=== PATIENT | female | born 1935 | race Caucasian/White ===

== ENCOUNTER 2024-04-13 07:18 | Outpatient (RCR) | payer MEDICARE, SELFPAY ==
[2024-03-02 10:47] VITALS: BMI 38.0
== END 2024-05-31 23:59 | disposition home or self-care (01) ==
LOC: ANHWOC 07:18
PROVIDERS: PCP Internal Medicine; Visit Provider Internal Medicine
DX: S81.801D Unspecified open wound, right lower leg, subsequent encounter (principal)
CPT/HCPCS: 99213; 99214; G0463

== ENCOUNTER 2024-09-07 10:28 | Outpatient (CLI) | payer MEDICARE, SELFPAY ==
--- NOTE | ~2024-09-07 | CT_ITS ---
EXAMINATION: CTA chest PE protocol DATE: 09/07/2024 11:03 INDICATION: Dyspnea. TECHNIQUE: Computed tomography angiography (CTA) of the chest was performed with 100 mL Omnipaque-350 intravenous contrast timed to evaluate the pulmonary arteries. Coronal maximum intensity projection 3D-reconstructions were created by the technologist. Automated exposure control and iterative reconst ruction technique were employed. The dose-length product was 922.85 mGy-cm. COMPARISON: Chest 2 views 06/05/2004 FINDINGS: There is a moderate-sized right pleural effusion. There is mild atelectasis bilaterally. Th e heart size is normal. No pericardial effusion. There are acute pulmonary emboli in the right middle lobe, right lower lobe, and left upper lobe. There is cortical thinning in the kidneys, left worse t sauceda right. There is moderate thoracic spondylosis. IMPRESSION: 1. Acute bilateral pulmonary emboli. No right heart strain. I called this result to [place] Cortes. 2. Moderate-sized right pleural effusion. Reviewed, dictated and finalized at location A. [facility] TELEMETRY IMPRESSION: 1. Acute bilateral pulmonary emboli. No right heart strain. I called this resul t to [place] Cortes. 2. Moderate-sized right pleural effusion.
--- OUTSIDE RECORDS SUMMARY | 2024-09-07 10:53 | XMS_ITS | Continuity of Care Document ---
Author Organization [facility] Address [address] [place] [address] [place] [address] Phone Care Team Providers Care Box Press Operator Name Role Phone Thierno Dowd Unavailable Unavailable [...] Diagnoses Date Provider Providers Copied on Encounter [facility], [address] [place] [address] [address], [place], [place], [address], [place] tel:[phone] [facility] [place] No Information 8 [address] [facility] , [address], [place], [address], [place]. tel:[phone] [facility], [address] [place] [address] [address], [place], [place], [address], [place] tel:[phone] [facility] [place] No Information 8 [address] [facility] [address], [address], [place], [address], [place]. tel:[phone] [facility], [address] [place] [address] [address], [place], [place], [address], [place] tel:[phone] [facility] No Information 8 Doisy Edward. [address] [facility] , [address], [place], [facility], [place]. tel:[phone] [facility], [address], [place], [place], [address], [place] tel:[phone] [facility] No Information 200 8 Doisy Edward. [address] [facility] , [address], [place], [facility], [place]. tel:[phone] Referring Provider: Antonio Plummer, [address] [place] [address], [place], [facility]. tel:[phone] [facility], [address], [place], [place], [address], [place] tel:[phone] [facility] No Information 200 8 [address]. [address] [facility] , [address], [place], [facility], [place]. tel:[phone] Referring Provider: Antonio Plummer, [address] [place] [address], [place], [facility]. tel:[phone] [facility], [address], [place], [place], [address], [place] tel:[phone] [facility] No Information 200 8 [address]. [address] [facility] , [address], [place], [facility], [place]. tel:[phone] Referring Provider: Antonio Plummer, [address] [place] [address], [place], [facility]. tel:[phone] Office/outpat ient Visit, [facility], [address], [place], [place], [address], [place] tel:[phone] [facility] [place] No Information Apr-2 2200 8 Neoge[address] Collinpaul. [address] [facility] [place] , [address], [place], [address], . tel:[phone] Referring Provider: Antonio Plummer, [address] [facility], [place], [facility]. tel:[phone] Family History Family Member Type Diagnosis Age At Onset No Information Payers Payer name Insurance type Covered constitution party ID Authoriza tion(s) No Information Social History [...]
--- OUTSIDE RECORDS SUMMARY | 2024-09-07 10:53 | XMS_ITS | Referral Summary ---
Author Organization [address] Address [address] [place] [address] Care Team Providers Care Application Developer Name Role Phone Chris Motta MD Primary Care Provider Allergies Active Allergy Reactions Criticality Noted Date Comments Levofloxacin Medications ALPRAZolam (XANAX) 0.5 mg tablet Take 1 tablet (0.5 mg total) by mouth 3 (three) times a day 02/07/2024 Active amLODIPine (NORVASC) 5 mg tablet Take 1 tablet (5 mg total) by mouth daily 02/07/2024 Active aspirin 81 mg enteric coated tablet Take 1 tablet every day by oral route. 05/28/2013 Active citalopram (CeleXA) 10 mg tablet Take 1 tablet every day by oral route. Active desmopressin (DDAVP) 0.1 mg tablet Take 1 tablet every day by oral route. Active diclofenac DR (VOLTAREN) 75 mg EC tablet Active ergocalciferol (VITAMIN D) 50,000 unit capsule Take 1 capsule every week by oral route. Active escitalopram (LEXAPRO) 5 mg tablet Take 1 tablet (5 mg total) by mouth daily Active indapamide (LOZOL) 2.5 mg tablet Take 1 tablet (2.5 mg total) by mouth daily Active levothyroxine (SYNTHROID) 125 mcg tablet Take 1 tablet (125 mcg total) by mouth Active losartan (COZAAR) 100 mg tablet Take 1 tablet (100 mg total) by mouth daily 12/17/2023 Active losartan (COZAAR) 25 mg tablet Active oxyBUTYnin XL (DITROPAN-XL) 10 mg 24 hr tablet Take 1 tablet (10 mg total) by mouth daily 02/18/2024 Active potassium chloride ER 20 mEq CR tablet Take 1 tablet (20 mEq total) by mouth daily Active simvastatin (ZOCOR) 20 mg tablet Take 1 tablet (20 mg total) by mouth daily 02/18/2024 Active Active Problems Problem Noted Date Diagnosed Date Nocturia 11/07/2010 Overactive bladder 11/07/2010 Urge incontinence of urine 11/07/2010 Hernia of anterior abdominal wall 11/07/2010 Diverticulitis of colon 03/22/2009 Social History Tobacco Use Types Packs/Day Years Used Date Smoking Tobacco: Never Comments Unknown Sex and Gender Information Value Date Recorded Sex Assigned at Not on file 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 Gender Identity Not on file Sexual Orientation Not on file Last Filed Vital Signs Vital Sign Reading Time Taken Comments Blood Pressure 148/68 02/19/2024 3:42 PM CDT Pulse 78 02/19/2024 3:42 PM CDT Temperature 37 C (98.6 F) 02/19/2024 3:42 PM CDT Respiratory Rate - - Oxygen Saturation 98% 02/19/2024 3:42 PM CDT Inhaled Oxygen Concentration - - Weight 113.4 kg (250 lb) 02/19/2024 3:42 PM CDT Height 172.7 cm (5' 8 ) 02/19/2024 3:42 PM CDT Body Mass Index 38.01 02/19/2024 3:42 PM CDT Plan of Treatment Not on file Insurance MEDICARE [facility] Address: [facility] [address] [place] [address] [facility] MEDICARE Care Teams Application Developer Relationship Specialty Start Date End Date Chris Motta MD [facility] [place] [place] [address] PCP - General Internal Medicine 02/19/24
--- OUTSIDE RECORDS SUMMARY | 2024-09-07 10:53 | XMS_ITS | CONTINUITY OF CARE DOCUMENT ---
Author Name shun hoffmann Address Unknown Organization [facility] Address [address] [facility] [address] [place] [address] Phone [phone] Care Team Providers Care Permit Technician Name Role Phone Robert COLORADO, Mellissa Unavailable RAPHAEL NATARAJAN MD Unavailable RORO AVENDANO MD Unavailable PROBLEMS Condition Status Date Provider Notes Family History of CVA or Stroke: active Morris Jones MD Hypothyroidism active Mellissa Jones MD HTN essential active Mellissa Jones MD Hyperlipidemia active Mellissa Jones MD Vertigo active Mellissa Jones MD DYSPNEA ON EXERTION active Mellissa Jones MD ENCOUNTERS Date Type Provider Location Encounter Diag nosis - In-person encounter Office Visit Mellissa Jones MD [facility] Family History of CVA or Stroke:HypothyroidismHTN essentialHyperlipidemiaVertigoDYSPNEA ON EXERTION VITAL SIGNS Date Observation Value Provider Body Mass Index (Ratio) 40.59 kg/m2 Pranay Jones MD blood pressure, diastolic 65 mm[Hg] To nsha Anthony blood pressure, systolic 140 mm[Hg] Morris Anthony oxygen saturation, oximetry 96 % Tonsha Anthony respiratory rate E&M 16 /min Tonsha Anthony pulse rate 81 /min Tonsha Anthony blood pressure, resting Yes Tons martino Anthony weight E&M 267 [lb_av] Tonsha Anthony height E&M 68 [in_i] Tonsha Anthony ALLERGIES Allergy Name Onset Date Reaction Criticality Status LEVAQUIN Low Criticality active HISTORY OF MEDICATION USE Medication Status Instructions Dates Provider Indications Com ments LOSARTAN POTASSIUM 100 MG ORAL TABLET active TAKE 1 TABLET BY MOUTH EVERY DAY 5 Doretha Anthony #90, 90 days supply, Prescribed by RORO AVENDANO, Filled 01/29/2020 AMLODIPINE BESYLATE 5 MG ORAL TABLET active TAKE 1 TABLET BY MOUTH EVERY DAY 1 Doretha Anthony #90, 90 days supply, Prescribed by RORO AVENDANO, Filled 01/29/2020 SIMVASTATIN 20 MG ORAL TABLET active TAKE 1 TABLET BY MOUTH EVERY DAY 5 Doretha Anthony #90, 90 days supply, Prescribed by RORO AVENDANO, Filled 03/10/2020 POTASSIUM CHLORIDE ER 20 MEQ ORAL TABLET EXTENDED RELEASE active TAKE 1 TABLET BY MOUTH EVERY DAY 1 Doretha Anthony #90, 90 days supply, Prescribed by RORO AVENDANO, Filled 03/15/2020 MECLIZINE HCL 25 MG ORAL TABLET active TAKE 1 TABLET BY MOUTH THREE TIMES A DAY 5 Doretha Anthony #90, 30 days supply, Prescribed by RORO AVENDANO, Filled 03/15/2020 LEVOTHYROXINE SODIUM 125 MCG ORAL TABLET active TAKE 1 TABLET BY MOUTH EVERY MORNING ON AN EMPTY STOMACH 1 Doretha Anthony #90, 90 days supply, Prescribed by RORO AVENDANO, Filled 03/15/2020 INDAPAMIDE 2.5 MG ORAL TABLET active TAKE 1 TABLET BY MOUTH EVERY DAY 1 Doretha Anthony #90, 90 days supply, Prescribed by RORO AVENDANO, Filled 03/15/2020 ESCITALOPRAM OXALATE 5 MG ORAL TABLET active TAKE 1 TABLET BY MOUTH EVERY DAY 8 Doretha Anthony #30, 30 days supply, Prescribed by RORO AVENDANO, Filled 03/15/2020 ALPRAZOLAM 0.5 MG ORAL TABLET active TAKE ONE TABLET DAILY AT BEDTIME OR DIRECTED *LF 12/19 MED SHOPPE* 5 Doretha Anthony #90, 90 days supply, Prescribed by RORO AVENDANO, Filled 03/15/2020 SOCIAL HISTORY Date Observation Value Provider social history E&M S moking History: P atient has never smoked. Mellissa Jones MD social history reviewed E&M reviewed - no changes required Mellissa Jones MD smoking status Never smoker Doretha Anthony FAMILY HISTORY Family Member Condition Father Family History of Hy pertension: Father Family History of CV A or Stroke: Mother Family History of Hy pertension: Mother Family History of CV A or Stroke: INSURANCE PROVIDERS Payer name Policy type / Coverage type [place] red democrat ID AARP [employer] insurance [employer] [id number] [place] MED[place] Medicare [id number] ADVANCE DIRECTIVES Name Date DISCUSSED - NO DECISION MADE TREATMENT PLAN Date Name Performer Cardiology Mellissa Jones MD Cardiology Mellissa Jones MD Cardiology Mellissa Jones MD Cardiology Mellissa Jones MD Date Name Stress Regadenoson Complete Echo HISTORY OF PROCEDURES Procedure Date Procedure Name Provider Procedure Notes S tatus Regadenoson, 4 units Mellissa Jones MD completed Cardiolite, 2 units Mellissa Jones MD completed SPECT Images Mellissa Jones MD complet ed Stress EKG Mellissa Jones MD completed EKG Mellissa Jones MD completed
--- OUTSIDE RECORDS SUMMARY | 2024-09-07 10:53 | XMS_ITS | Clinical Summary ---
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 Gender Identity Not on file Sexual Orientation Not on file Obstetrics History Last Filed Vital Signs Vital Sign Reading [...] 02/19/2024 3:42 PM CDT Plan of Treatment Health Maintenance Due Date Last Done Comments Depression Screening 1936 Fall Risk Assessment 1936 DTaP/Tdap/Td Vaccine (1 - Tdap) 10/09/1947 Hepatitis B Screening 1954 Zoster Vaccine (1 of 2) 1986 Well Visit 65+ 2001 Pneumococcal vaccine 65+ (2 of 2 - PPSV23 or PCV20) 07/23/2015 07/23/2014 Covid-19 Vaccine (2023-2 5 season) 2024 05/12/2023, 04/08/2022, 06/16/2021, Additional history exists Influenza Vaccine (#1) 2024 , 04/08/2022, 04/01/2022, Additional history exists Insurance MEDICARE [facility] MEDICARE Care Teams Hot Repairman Relationship Specialty Start Date End Date Chris Motta MD [facility] [place] [address] PCP - General Internal Medicine 02/19/24
[2024-09-07 10:56] LABS: Estimated Glomerular Filt Rate 39
== END 2024-09-07 10:29 | disposition home or self-care (01) ==
PROVIDERS: PCP Internal Medicine; Visit Provider Internal Medicine
DX: R06.00 Dyspnea, unspecified (principal)
CPT/HCPCS: 71275; Q9967

== ENCOUNTER 2024-09-07 11:33 | Emergency (ER) | payer MEDICARE, SELFPAY ==
[2024-09-07] VITALS (8 sets, daily range): BP systolic 153–171; BP diastolic 54–64; PULSE 66–72; RESP 16–24; TEMP 36.6–36.9; O2SAT 95–98
--- OUTSIDE RECORDS SUMMARY | 2024-09-07 11:50 | XMS_ITS | Continuity of Care Document ---
Author Organization [facility] Address [address] [place] [address] [place] [address] Phone Care Team Providers Care Building Maintenance Mechanic Name Role Phone Thierno Dowd Unavailable Unavailable [...] Diagnoses Date Provider Providers Copied on Encounter [facility], [address] [place] [address] [address], [place], [place], [address], [place] tel:[phone] [facility] [place] No Information 8 [address] [facility] , [address], [place], [address], [place]. tel:[phone] [facility], [address] [place] [address] [address], [place], [place], [address], [place] tel:[phone] [facility] [place] No Information 8 [address] [facility] [address]if [address], [address], [place], [address], [place]. tel:[phone] [facility], [address] [place] [address] [address], [place], [place], [address], [place] tel:[phone] [facility] No Information 8 Doisy Edward. [address] [facility] , [address], [place], [facility], [place]. tel:[phone] [facility], [address], [place], [place], [address], [place] tel:[phone] SEC [facility] No Information 200 8 Doisy Edward. [address] [facility] , [address], [place], [facility], [place]. tel:[phone] Referring Provider: Antonio Plummer, [address] [place] [address], [place], [facility]. tel:[phone] [facility], [address], [place], [place], [address], [place] tel:[phone] SEC [facility] No Information 200 8 Doisy Edward. [address] [facility] , [address], [place], [facility], [place]. tel:[phone] Referring Provider: Antonio Plummer, [address] [place] [address], [place], [facility]. tel:[phone] [facility], [address], [place], [place], [address], [place] tel:[phone] [facility] No Information 200 8 Doisy Edward. [address] [facility] , [address], [place], [facility], [place]. tel:[phone] Referring Provider: Antonio Plummer, [address] [place] [address], [place], [facility]. tel:[phone] Office/outpat ient Visit, [facility], [address], [place], [place], [address], [place] tel:[phone] [facility] [place] No Information Apr-2 2200 8 Neogeorgina Collinpaul. [address] [facility] [place] , [address], [place], [address], . tel:[phone] Referring Provider: Antonio Plummer, [address], [place], [facility]. tel:[phone] Family History Family Member Type Diagnosis Age [...]
--- OUTSIDE RECORDS SUMMARY | 2024-09-07 11:50 | XMS_ITS | Clinical Summary ---
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 MEDICARE Care Teams Networking Technology Instructor Relationship Specialty Start Date End Date Chris Motta MD [facility] [place] [address] PCP - General Internal Medicine 02/19/24
--- OUTSIDE RECORDS SUMMARY | 2024-09-07 11:51 | XMS_ITS | CONTINUITY OF CARE DOCUMENT ---
Author Name shun hoffmann Address Unknown Organization [facility] [address] Address [address] [facility] [address] [place] [address] Phone [phone] Care Team Providers Care Rubber Production Machine Operator Name Role Phone Robert COLORADO, Mellissa Unavailable [phone] RAPHAEL NATARAJAN MD Unavailable RORO AVENDANO MD Unavailable PROBLEMS Condition Status Date Provider Notes DYSPNEA ON EXERTION active Mellissa Jones MD Vertigo active Mellissa Jones MD Hyperlipidemia active Mellissa Jones MD HTN essential active Mellissa Jones MD Hypothyroidism active Mellissa Jones MD Family History of CVA or Stroke: active Morris Jones MD ENCOUNTERS Date Type Provider Location Encounter Diag nosis - In-person encounter Office Visit Mellissa Jones MD [place] [facility] Family History of CVA or Stroke:HypothyroidismHTN essentialHyperlipidemiaVertigoDYSPNEA ON EXERTION VITAL SIGNS Date Observation Value Provider Body Mass Index (Ratio) 40.59 kg/m2 Pranay Jones MD blood pressure, diastolic 65 mm[Hg] To nsha Raj blood pressure, systolic 140 mm[Hg] Morris Anthony [...] Payer name Policy type / Coverage type [place] red libertarian ID AARP Contactually insurance [place] [id number] [place] MED[place] Medicare [id number] ADVANCE DIRECTIVES Name Date DISCUSSED - NO [...]
--- OUTSIDE RECORDS SUMMARY | 2024-09-07 11:51 | XMS_ITS | Referral Summary ---
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
--- NOTE | 2024-09-07 13:13 | ECG_ITS ---
Test Date: 2024-09-07 12:56:52 Measurements Intervals [place] Rate: 66 P: -33 CT: 180 QRS: 64 QRSD: 92 T: 85 QT: 419 QTc: 440 Interpretive Statements SINUS RHYTHM CONSIDER ANTERIOR INFARCT, AGE INDETERMINATE BORDERLINE T WAVE ABNORMALITY- HIGH LATERAL LEADS BASELINE ARTIFACT- I, II, III, AVR, AVL, V4-V6 ABNORMAL ECG No previous ECG available for comparison Electronically Signed On 09-07-2024 14:59:23 BANDER OPERATOR by Paulie Brush D.O.
--- OUTSIDE RECORDS SUMMARY | 2024-09-07 14:02 | XMS_ITS | CONTINUITY OF CARE DOCUMENT ---
Author Name shun hoffmann Address Unknown Organization [facility] Address [address] [facility] [address] [place] [address] Phone [phone] Care Team Providers Care Vein Pumper Name Role Phone Robert [place]OR[place]O, Mellissa Unavailable RAPHAEL NATARAJAN MD Unavailable [phone] RORO AVENDANO MD Unavailable [phone] PROBLEMS Condition Status Date Provider Notes Family History of CVA or Stroke: active Morris Jones MD Hypothyroidism active Mellissa Jones MD HTN essential active Mellissa Jones MD Hyperlipidemia active Mellissa Jones MD Vertigo active Mellissa Jones MD DYSPNEA ON EXERTION active Mellissa Jones MD ENCOUNTERS Date Type Provider Location Encounter Diag nosis - In-person encounter Office Visit Mellissa Jones MD [place] [facility] Family History of CVA or Stroke:HypothyroidismHTN [...] Tonsha Anthony height E&M 68 [in_i] Tonsha Anhtony ALLERGIES Allergy Name Onset Date Reaction Criticality [...] Payer name Policy type / Coverage type [place] red libertarian ID AARP [place] insurance [employer] [id number] [place] MED[place] Medicare [id number] ADVANCE DIRECTIVES Name Date DISCUSSED - NO [...]
--- OUTSIDE RECORDS SUMMARY | 2024-09-07 14:02 | XMS_ITS | Referral Summary ---
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
--- OUTSIDE RECORDS SUMMARY | 2024-09-07 14:02 | XMS_ITS | Continuity of Care Document ---
Author Organization [facility] Address [address] [place] [address] [place] [address] Phone Care Team Providers Care Outlet Manager Name Role Phone Thierno Dowd Unavailable Unavailable [...] Diagnoses Date Provider Providers Copied on Encounter [facility], [address] [place] [address] [address], [place], [place], [id number], [place] tel:[phone] [facility] [place] No Information [address] [facility] , [address], [place], [address], [place]. tel:[phone] [facility], [address] [place] [address] [address], [place], [place], [id number], [place] tel:[phone] [facility] [place] No Information [address] [facility] [address], [address], [place], [address], [place]. tel:[phone] [facility], [address] [place] [address] [address], [place], [place], [id number], [place] tel:[phone] [facility] No Information [address] [facility] , [address], [place], [place], [facility], [place]. tel:[phone] [facility], [address], [place], [place], [address], [place] tel:[phone] SEC [facility] No Information [address] [facility] , [address], [place], [place], [facility], [place]. tel:[phone] Referring Provider: Antonio Plummer, [address] [place] [address], [place], [facility]. tel:[phone] [facility], [address], [place], [place], [id number], [place] tel:[phone] SEC [facility] No Information [address] [facility] , [address], [place], [place], [facility], [place]. tel:[phone] Referring Provider: Antonio Plummer, [address] [place] [address], [place], [facility]. tel:[phone] [facility], [address], [place], [place], [id number], [place] tel:[phone] [facility] No Information [address] [facility] , [address], [place], [place], [facility], [place]. tel:[phone] Referring Provider: Antonio Plummer, [address] [place] [address], [place], [facility]. tel:[phone] Office/outpat ient Visit, [facility], [address], [place], [place], [id number], [place] tel:[phone] [facility] [place] No Information Apr-2 2200 [address] [facility] [place] , [address], [place], [address], . tel:[phone] Referring Provider: Antonio Plummer, [address] [facility], [place], [place], [facility]. tel:[phone] Family History Family Member Type Diagnosis Age [...]
--- OUTSIDE RECORDS SUMMARY | 2024-09-07 14:02 | XMS_ITS | Clinical Summary ---
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
--- NOTE | 2024-09-07 14:13 | ED.GENADULT ---
HPI - General Adult General Chief complaint: Shortness of Breath/Dyspnea Stated complaint: SOB Time Seen by Provider: 09/07/24 13:35 History of Present Illness HPI narrative: Patient is a 88-year-old female who presents emergency department with chief complaint of pulmonary embolism. The patient reports that she had a CT scan as an outpatient today that showed a pulmonary embolism. The patient states that she has been feeling short of breath and reports that she has had some discomfort in her chest as well Related Data Home Medications ?Medication ?Instructions ?Recorded ?Confirmed ?Last Taken ?Type alprazolam 0.5 mg tablet 0.5 mg PO TID 03/02/24 03/02/24 Unknown History amlodipine 5 mg tablet 5 mg PO DAILY 03/02/24 03/02/24 Unknown History aspirin 81 mg capsule 81 mg PO DAILY 03/02/24 03/02/24 Unknown History escitalopram oxalate 5 mg tablet 5 mg PO DAILY 03/02/24 03/02/24 Unknown History indapamide 2.5 mg tablet 2.5 mg PO DAILY 03/02/24 03/02/24 Unknown History levothyroxine 125 mcg tablet 125 mcg PO DAILY 03/02/24 03/02/24 Unknown History losartan 100 mg tablet 100 mg PO DAILY 03/02/24 03/02/24 Unknown History meclizine 25 mg tablet 25 mg PO TID PRN Vertigo 03/02/24 03/02/24 Unknown History oxybutynin chloride 10 mg 10 mg PO DAILY 03/02/24 03/02/24 Unknown History tablet,extended release 24 hr potassium chloride 20 mEq 20 meq PO DAILY 03/02/24 03/02/24 Unknown History tablet,extended release simvastatin 20 mg tablet 20 mg PO DAILY 03/02/24 03/02/24 Unknown History Allergies Allergy/AdvReac Type Severity Reaction Status Date / Time levofloxacin (From Levaquin) Allergy Intermediate Rash Verified 09/07/24 11:43 Review of Systems Review of Systems: A 10 system review of systems was completed on the patient and is negative except for what is stated in the HPI. Nursing and ancillary documentation was reviewed. Exam Narrative: GENERAL: Well-appearing, well-nourished, and in no acute distress. HEAD: Normocephalic, atraumatic. EYES: PERRLA and EOMI. ENT: Nares clear, no rhinorrhea or epistaxis. Mucous membranes moist. NECK: Supple. CHEST: Clear to auscultation. No respiratory distress. HEART: Regular rate and rhythm. No murmur heard. Normal peripheral pulses. ABDOMEN: Soft, nontender, nondistended, normal active bowel sounds. EXTREMITIES: Normal range of motion. No edema. SKIN: Warm, dry, no rash. NEURO: No focal deficits. Alert and oriented x3. PSYCH: Normal mood and affect. Course Vital Signs Vital signs: Vital Signs Temperature 36.6 C 09/07/24 11:34 Pulse Rate 71 09/07/24 11:34 Respiratory Rate 18 09/07/24 11:34 Blood Pressure 153/54 H 09/07/24 11:34 Pulse Oximetry 95 09/07/24 11:34 Oxygen Delivery Room Air 09/07/24 11:34 Temperature 36.6 C 09/07/24 11:34 Pulse Rate 68 09/07/24 14:58 Respiratory Rate 20 09/07/24 14:58 Blood Pressure 169/64 H 09/07/24 14:31 Pulse Oximetry 96 09/07/24 14:58 Oxygen Delivery Room Air 09/07/24 13:01 Medical Decision Making Vital Signs Vital Signs: Vital Signs Temperature 36.6 C 09/07/24 11:34 Pulse Rate 71 09/07/24 11:34 Respiratory Rate 18 09/07/24 11:34 Blood Pressure 153/54 H 09/07/24 11:34 Pulse Oximetry 95 09/07/24 11:34 Oxygen Delivery Room Air 09/07/24 11:34 Temperature 36.6 C 09/07/24 11:34 Pulse Rate 68 09/07/24 14:58 Respiratory Rate 20 09/07/24 14:58 Blood Pressure 169/64 H 09/07/24 14:31 Pulse Oximetry 96 09/07/24 14:58 Oxygen Delivery Room Air 09/07/24 13:01 Lab Data 09/07/24 14:03 09/07/24 15:08 Labs: Lab Results 09/07/24 09/07/24 Range/Units 14:03 15:08 WBC 9.7 (4.5-10.0) K/mm3 RBC 4.66 (4.2-5.4) M/mm3 Hgb 13.9 (12.0-15.0) g/dL Hct 42.2 (37.0-47.0) % MCV 90.6 (80-100) fl MCH 29.8 (26-34) pg MCHC 32.9 (32-36) g/dl RDW 12.9 (11.5-14.5) % Plt Count 289 (150-375) k/mm3 MPV 10.7 H (7.4-10.4) fl Immature Gran % (Auto) 0.2 (0-0.5) % Neut % (Auto) 47.3 (45.5-73.1) % Lymph % (Auto) 29.5 (18.3-44.2) % Phillips % (Auto) 8.3 (2.6-8.5) % Eos % (Auto) 14.0 H (0-4.4) % Baso % (Auto) 0.7 (0.2-1.2) % Lymph # (Auto) 2.85 (0.9-3.2) K/mm3 Phillips # (Auto) 0.8 H (0.1-0.6) K/mm3 Eos # (Auto) 1.4 H (0-0.3) K/mm3 Baso # (Auto) 0.1 (0.0-0.1) K/mm3 Abs Immat Gran (auto) 0.02 (0.00-0.031) K/mm3 Absolute Neuts (auto) 4.6 (1.3-6.7) K/mm3 Absolute Nucleated RBC 0.000 (0.0-0.012) K/mm3 Nucleated RBC % 0.0 (0.0-0.2) % PT 13.6 (11.1-14.7) Seconds INR 1.0 APTT 32.0 (22.3-36.8) Seconds Sodium 137 (137-145) mmol/L Potassium 4.4 (3.4-5.0) mmol/L Chloride 105 (98-107) mmol/L Carbon Dioxide 23 (22-30) mmol/L Anion Gap 9 (4-12) mmol/L BUN 21 H (7-17) mg/dL Creatinine 0.95 (0.7-1.0) mg/dL Estim Creat Clear Calc 49 ml/min Estimated GFR 56 L (59 - ) Glucose 84 (65-110) mg/dL Calcium 8.5 (8.4-10.2) mg/dL Magnesium 1.8 (1.6-2.3) mg/dL Total Bilirubin 0.5 (0.2-1.3) mg/dL AST 19 (14-36) U/L ALT 10 (6-35) U/L Alkaline Phosphatase 103 (38-126) U/L Troponin I < 0.012 (0.000-0.034) ng/mL NT-Pro-B Natriuret Pep 279 H (19.9-100) pg/mL Total Protein 7.0 (6.3-8.2) g/dL Albumin 3.5 (3.5-5.1) g/dL Discharge Plan Discharge Clinical Impression: Pulmonary embolism Qualifiers: Pulmonary embolism type: unspecified Chronicity: acute Acute cor pulmonale presence: without acute cor pulmonale Qualified Code(s): I26.99 - Other pulmonary embolism without acute cor pulmonale Patient Disposition: Home, Self-Care Condition: Stable Instructions: Antibiotic Form, Pulmonary Embolism (ED) Patient Language: Guamanian Prescriptions: New Xarelto DVT-PE Treat 30d Start 15 mg (42)- 20 mg (9) tablets,dose pack See Rx Instructions .ROUTE .COMPLEX Qty: 51 0RF Rx Instructions: take one-15 mg tablet twice daily for 21 days, then one-20 mg tablet once daily; must take with meal/food No Action oxybutynin chloride 10 mg Tablet Extended Release 24hr 10 mg PO DAILY indapamide 2.5 mg Tablet 2.5 mg PO DAILY amlodipine 5 mg Tablet 5 mg PO DAILY alprazolam 0.5 mg Tablet 0.5 mg PO TID meclizine 25 mg Tablet 25 mg PO TID PRN (Reason: Vertigo) simvastatin 20 mg Tablet 20 mg PO DAILY levothyroxine 125 mcg Tablet 125 mcg PO DAILY losartan 100 mg Tablet 100 mg PO DAILY escitalopram oxalate 5 mg Tablet 5 mg PO DAILY potassium chloride 20 mEq Tablet Extended Release 20 meq PO DAILY aspirin 81 mg Capsule 81 mg PO DAILY Follow-up/Referrals: Kalia,Chris Aguiar MD [Primary Care Provider] - Time of Disposition: 15:59
[2024-09-07 14:14] LABS: Basophils Absolute Auto 0.1 K/mm3 (0.0-0.1); Basophils Percent Auto 0.7 % (0.2-1.2); Eosinophils Absolute Auto 1.4 K/mm3 (0-0.3); Hematocrit 42.2 % (37.0-47.0); Hemoglobin 13.9 g/dL (12.0-15.0); Immature Granulocyte Absolute 0.02 K/mm3 (0.00-0.031); Immature Granulocyte Percent A 0.2 % (0-0.5); Lymphocytes Absolute Auto 2.85 K/mm3 (0.9-3.2); Lymphocytes Percent Auto 29.5 % (18.3-44.2); Mean Corpuscular HGB Conc 32.9 g/dl (32-36); Mean Corpuscular Hemoglobin 29.8 pg (26-34); Mean Corpuscular Volume 90.6 fl (80-100); Mean Platelet Volume 10.7 fl (7.4-10.4); Monocytes Absolute Auto 0.8 K/mm3 (0.1-0.6); Monocytes Percent Auto 8.3 % (2.6-8.5); Neutrophils Absolute Auto 4.6 K/mm3 (1.3-6.7); Neutrophils Percent Auto 47.3 % (45.5-73.1); Platelet Count Result 289 k/mm3 (150-375); Red Blood Count 4.66 M/mm3 (4.2-5.4); Red Cell Distribution Width 12.9 % (11.5-14.5); White Blood Count 9.7 K/mm3 (4.5-10.0)
[2024-09-07 14:28] LABS: Prothrombin Time 13.6 Seconds (11.1-14.7)
[2024-09-07 15:25] LABS: Alanine Aminotransferase 10 U/L (6-35); Albumin Level 3.5 g/dL (3.5-5.1); Alkaline Phosphatase 103 U/L (38-126); Anion Gap 9 mmol/L (4-12); Aspartate Amino Transferase 19 U/L (14-36); Bilirubin,Total 0.5 mg/dL (0.2-1.3); Blood Urea Nitrogen 21 mg/dL (7-17); Calcium 8.5 mg/dL (8.4-10.2); Carbon Dioxide 23 mmol/L (22-30); Chloride 105 mmol/L (98-107); Estimated CRCL calculation 49 ml/min; Estimated Glomerular Filt Rate 56; Glucose 84 mg/dL (65-110); Magnesium 1.8 mg/dL (1.6-2.3); Potassium 4.4 mmol/L (3.4-5.0); Sodium 137 mmol/L (137-145)
[2024-09-07 15:36] LABS: NT Pro B Type Natriuretic Pept 279 pg/mL (19.9-100); Troponin I < 0.012 ng/mL (0.000-0.034)
[2024-09-07] MEDS: ENOXAPARIN 100 MG/ML SYRINGE SUB-Q (16:17)
[2024-09-07] MEDS: ENOXAPARIN 80 MG/0.8 ML SYRINGE 70 MG SUB-Q (16:17)
== END 2024-09-07 16:27 | disposition home or self-care (01) ==
PROVIDERS: Emergency Provider Emergency Medicine; PCP Internal Medicine
DX: I26.99 Other pulmonary embolism without acute cor pulmonale (principal); R06.02 Shortness of breath; Z79.82 Long term (current) use of aspirin; Z79.899 Other long term (current) drug therapy; R94.31 Abnormal electrocardiogram [ECG] [EKG]
CPT/HCPCS: 36415; 71275; 80053; 83735; 83880; 84484; 85025; 85610; 85730; 93005; 96372; 99284; J1650; Q9967

== ENCOUNTER 2025-02-19 14:33 | Inpatient (IN) | payer MEDICARE, SELFPAY ==
[2025-02-19] VITALS (24 sets, daily range): BP systolic 156–187; BP diastolic 46–127; PULSE 63–90; RESP 17–35; TEMP 36.7–36.8; O2SAT 91–100; BMI 40.1
--- NOTE | ~2025-02-19 | XR_ITS ---
EXAM/PROCEDURE: XR chest 1V portable - 02/19/2025 15:20 CDT HISTORY: 89 years old Female with SOB TECHNIQUE: AP view(s) of the chest. COMPARISON: None available. FINDINGS: LUNGS/ PLEURA: No focal consolidation. No appreciable pneumothorax or large pleural effusion. HEART/ MEDIASTINUM: Heart appears normal in size. BONES: Degenerative changes. OTHER: Visualized upper abdomen is unremarkable. Atherosclerotic calcifications are seen. IMPRESSION: No acute process. Reviewed, dictated and finalized at location A. IMPRESSION: No acute process.
--- NOTE | ~2025-02-19 | CT_ITS ---
EXAMINATION: CTA chest PE protocol DATE: 02/19/2025 19:02 INDICATION: Dyspnea TECHNIQUE: Computed tomography angiography (CTA) of the chest was performed with 100 mL Omnipaque-350 intravenous contrast timed to evaluate the pulmonary arteries. Coronal maximum intensity projection 3D-reconstructions were created by the technologist. The dose-length product (DLP) was 1018.27 mGy-cm . Automated exposure control and iterative reconstruction technique were employed. COMPARISON: 09/07/2024. FINDINGS: Lung parenchyma and airways: Bibasilar scar/atelectasis. Mild emphysematous change. Patent airways. 4 mm pulmonary nodules in the peripheral right middle lobe. Pleura: Unremarkable. Thoracic inlet, axillae and chest wall: Subcentimeter bilateral thyroid calcifications. Thoracic aorta: No significant dilation. No dissection. Atherosclerotic calcification. Mediastinum: Dilated central pulmonary arteries as can be seen with pulmonary hypertension. Heart and pericardium: Aortic valve calcification. Coronary artery calcifications: Mild. 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 Pancreatic atrophy. Status post c holecystectomy. Bilateral renal cortical thinning, with atrophy noted on the left.. Bones: No acute osseous finding. Pulmonary arteries: Study quality: Adequate. No pulmonary emboli detected. IMPRESSION: No CT evidence of acute pulmonary embolus. No acute process detected in the chest. Multiple subcentimeter pulmonary nodules, consider follow-up low-dose noncontrast CT of the chest in one year if the patient is at high risk. Reviewed, dictated and finalized at location K. IMPRESSION: No CT evidence of acute pulmonary embolus. No acute process detected in the chest. Multiple subcentimeter pulmonary nodules, consider follow-up low-dose noncontra st CT of the chest in one year if the patient is at high risk.
--- OUTSIDE RECORDS SUMMARY | 2025-02-19 14:35 | XMS_ITS | Clinical Summary ---
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 Gender Identity Not on file Sexual Orientation [...] 3:42 PM CDT Height 172.7 cm (5' 8) 02/19/2024 3:42 PM CDT Body Mass Index 38.01 02/19/2024 3:42 PM CDT Plan of Treatment Health Maintenance Due Date Last Done Comments Depression Screening 1936 Fall Risk Assessment 1936 Osteoporosis Screening-Bone Density Scan 1936 DTaP/Tdap/Td Vaccine (1 - Tdap) 10/09/1947 Hepatitis B Screening 1954 Zoster Vaccine (1 of 2) 1986 Well Visit 65+ 2001 Pneumococcal vaccine 65+ (2 of 2 - PPSV23) 07/23/2015 07/23/2014 Covid-19 Vaccine (2023-2 5 season) 2024 05/12/2023, 04/08/2022, 06/16/2021, Additional history exists Influenza Vaccine (Season Ended) 2025 05/12/2023, 04/08/2022, 04/01/2022, Additional history exists Insurance MEDICARE [facility] MEDICARE Care Teams Decision Support Analyst Relationship Specialty Start Date End Date Chris Motta MD [facility] [place] [address] PCP - General Internal Medicine 02/19/24
--- OUTSIDE RECORDS SUMMARY | 2025-02-19 14:35 | XMS_ITS | Referral Summary ---
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
--- OUTSIDE RECORDS SUMMARY | 2025-02-19 14:35 | XMS_ITS | Continuity of Care Document ---
Author Organization [facility] Address [address] [place] [address] [place] [address] Phone Care Team Providers Care Assistant Men'S Soccer Coach Name Role Phone Thierno Dodw Unavailable Unavailable Procedures Procedure Date Post-op Follow-up [...] Diagnoses Date Provider Providers Copied on Encounter [facility], [address] [place] [address] [address], [place], [place], [id number], [place] tel:[phone] [facility] [place] No Information [address] [facility] [place] , [address], [place], [address], [place]. tel:[phone] [facility], [address] [place] [address] [address], [place], [place], [address], [place] tel:[phone] [facility] [place] No Information [address] [facility] [address], [address], [place], [address], [place]. tel:[phone] [facility], [address] [place] [address] [address], [place], [place], [address], [place] tel:[phone] [facility] No Information [address] [facility] , [address], [place], [place], [facility], [place]. tel:[phone] [facility], [address], [place], [place], [id number], [place] tel:[phone] SEC [facility] No Information [address] [facility] , [address], [place], [place], [facility], [place]. tel:[phone] Referring Provider: Antonio Plummer, [address] [place] [address], [place], [facility]. tel:[phone] [facility], [address], [place], [place], [id number], [place] tel:[phone] SEC [facility] No Information [address] [facility] , [address], [place], [facility], [place]. tel:[phone] Referring Provider: Antonio Plummer, [address] [place] [address], [place], [facility]. tel:[phone] [facility], [address], [place], [place], [address], [place] tel:[phone] [facility] [address] [facility] No Information [address] [facility] , [address], [place], [facility], [place]. tel:[phone] Referring Provider: Antonio Plummer, [address] [place] [address], [place], [facility]. tel:[phone] Office/outpat ient Visit, [facility], [address], [place], [place], [id number], [place] tel:[phone] [facility] [place] No Information Apr-2 2200 [address] [facility] [place] , [address], [place], [address], . tel:[phone] Referring Provider: Antonio Plummer, [address] [facility], [place], [facility]. tel:[phone] Family History Family Member Type Diagnosis Age At Onset No Information Payers Payer name Insurance type Covered libertarian ID Authoriza tion(s) No Information Social History [...]
--- NOTE | 2025-02-19 14:45 | ECG_ITS ---
Test Date: 2025-02-19 14:50:03 Measurements Intervals [place] Rate: 76 P: 0 VA: 0 QRS: 58 QRSD: 94 T: 61 QT: 393 QTc: 443 Interpretive Statements SINUS RHYTHM LOW QRS VOLTAGE IN PRECORDIAL LEADS [QRS DEFLECTION < 1.0 mV IN CHEST LEADS] ABNORMAL RHYTHM ECG Compared to ECG 09/07/2024 12:56:52 NO SIGNIFICANT CHANGES Electronically Signed On 02-19-2025 15:27:17 CDT by Nick Lau M.D.
[2025-02-19 15:05] LABS: Hematocrit 40.5 % (37.0-47.0); Hemoglobin 13.3 g/dL (12.0-15.0); Immature Granulocyte Percent A 0.3 % (0-0.5); Lymphocytes Absolute Auto 2.65 K/mm3 (0.9-3.2); Mean Corpuscular HGB Conc 32.8 g/dl (32-36); Mean Corpuscular Hemoglobin 29.6 pg (26-34); Mean Corpuscular Volume 90.2 fl (80-100); Nucleated Red Blood Cells Absolute Auto 0.000 K/mm3 (0.0-0.012); Nucleated Red Blood Cells Perc 0.0 % (0.0-0.2); Platelet Count Result 250 k/mm3 (150-375); Red Blood Count 4.49 M/mm3 (4.2-5.4); White Blood Count 9.0 K/mm3 (4.5-10.0)
--- NOTE | 2025-02-19 15:14 | ED.GENADULT ---
HPI - General Adult General Chief complaint: Shortness of Breath/Dyspnea Stated complaint: dyspnea Time Seen by Provider: 02/19/25 15:08 History of Present Illness HPI narrative: 89-year-old female presents emergency department for evaluation for increased shortness of breath. Patient reports she has had increased wheeze and exertional shortness breath over the course of the last week. Patient states that she does not have a prior history of smoking. Patient was evaluated by her primary care physician treated with a Z-Jose Angel but has not felt improved, patient still does have 1 day left on the Z-Jose Angel. Patient does have a history of a pulmonary embolism back if September, patient had a recent negative D-dimer and negative bilateral ultrasounds and patient was told to stop her Eliquis Related Data Home Medications ?Medication ?Instructions ?Recorded ?Confirmed ?Last Taken ?Type alprazolam 0.5 mg tablet 0.5 mg PO HS 03/02/24 02/19/25 02/18/25 History amlodipine 5 mg tablet 5 mg PO DAILY 03/02/24 02/19/25 02/19/25 History aspirin 81 mg capsule 81 mg PO DAILY 03/02/24 02/19/25 02/19/25 History escitalopram oxalate 5 mg tablet 5 mg PO DAILY 03/02/24 02/19/25 02/19/25 History indapamide 2.5 mg tablet 2.5 mg PO DAILY 03/02/24 02/19/25 02/19/25 History levothyroxine 125 mcg tablet 125 mcg PO DAILY 03/02/24 02/19/25 02/19/25 History losartan 100 mg tablet 100 mg PO DAILY 03/02/24 02/19/25 02/19/25 History meclizine 25 mg tablet 25 mg PO TID PRN Vertigo 03/02/24 02/19/25 Unknown History oxybutynin chloride 10 mg 10 mg PO HS 03/02/24 02/19/25 02/18/25 History tablet,extended release 24 hr potassium chloride 20 mEq 20 meq PO DAILY 03/02/24 02/19/25 02/19/25 History tablet,extended release simvastatin 20 mg tablet 20 mg PO DAILY 03/02/24 02/19/25 02/18/25 History Allergies Allergy/AdvReac Type Severity Reaction Status Date / Time levofloxacin (From Levaquin) Allergy Intermediate Rash Verified 02/19/25 14:38 Review of Systems Review of Systems: All systems reviewed & are unremarkable except as noted in HPI and below [facility] Family History Family History (Updated 02/19/25 @ 21:15 by Glen Adhikari RN) Father Acute myocardial infarction Mother Cerebrovascular accident Sibling Heart disease Social History Social History Smoking status: Never smoker Alcohol intake: never Substance use: never Substance use type: does not use Do You Feel Safe in your Home?: Yes Lack of Transportation: No Lack of Food: Never True Current Housing: I Have Housing Concerned About Future Housing: No Difficulty Paying Gas/Electric Bills: No Difficulty Paying for Meds: No Currently Unemployed: No Education: High School Diploma/GED Difficulty w/ Childcare or Family Care: No Spiritual care concerns: No Exam Narrative: APPEARANCE: Increased work of breathing, uncomfortable appearing HEAD: normocephalic, atraumatic. EYES: PERRLA/EOMI, conjunctivae clear. NOSE: Normal no drainage EARS:TMS clear with good light reflex. THROAT: Pharynx clear, no exudate. NECK: Supple. No adenopathy, no masses. RESPIRATORY: Bilateral expiratory wheeze CARDIOVASCULAR: Regular rate and rhythm without murmurs rubs or gallops. ABDOMINAL: Soft, nontender, nondistended, normal bowel sounds MUSCULOSKELETAL: Moves all extremities. Strength/ROM intact, No edema, No calf tenderness. NEURO: Alert. Cranial nerves II through XII intact. Good gait. Good coordination SKIN: Warm, dry. Normal Color Course Vital Signs Vital signs: Vital Signs Temperature 98.2 F 02/19/25 14:35 Pulse Rate 77 02/19/25 14:35 Respiratory Rate 18 02/19/25 14:35 Blood Pressure 161/64 H 02/19/25 14:35 Pulse Oximetry 95 02/19/25 14:35 Temperature 98.0 F 02/19/25 20:43 Pulse Rate 86 02/19/25 20:43 Respiratory Rate 22 H 02/19/25 20:43 Blood Pressure 164/47 H 02/19/25 22:10 Pulse Oximetry 97 02/19/25 20:43 Oxygen Delivery Nasal Cannula 02/19/25 18:01 Oxygen Flow Rate 2 02/19/25 18:01 Medical Decision Making MDM Narrative Medical decision making narrative: 89-year-old female presents emergency department for evaluation for increased work of breathing. Patient denies any prior history of lung disease and patient is not a smoker. Patient does report some sick contacts at home, daughter has a similar illness. Patient had significant increased work of breathing and wheezing upon arrival. She was treated with 2 breathing treatments and still has increased work of breathing and audible wheezing. Patient was also treated with an IV dose of Solu-Medrol. Patient is currently afebrile with no leukocytosis heme hemoglobin of 13.3. No acute abnormalities on her CMP. Patient was negative for influenza COVID RSV. Chest x-ray shows no acute cardiopulmonary abnormality. Patient most likely has an underlying viral etiology causing a viral pneumonia. While patient was treated with a dose of IV Solu-Medrol she also be treated with a round of antibiotics. CTA was negative for pulmonary embolism. Patient did have some increased chest tightness after coming back from CT scan but this was only short lasting. Patient's repeat EKG did show some nonspecific ST depressions in the lateral leads. Patient's troponin was not elevated. Patient's proBNP was only mildly elevated. Case was rediscussed with hospitalist patient was accepted for admission to the IMU. On further evaluation patient states she does feel improved after her 3rd breathing treatment. Patient does continue to have some residual wheeze. ABG showed no acute abnormalities. Patient was stable at time of transfer to the floor. Critical Care Procedure Note Authorized and Performed by: Maulik Holcomb Total critical care time: Approximately 36 minutes Due to a high probability of clinically significant, life threatening deterioration, the patient required my highest level of preparedness to intervene emergently and I personally spent this critical care time directly and personally managing the patient. This critical care time included obtaining a history; examining the patient; pulse oximetry; ordering and review of studies; arranging urgent treatment with development of a management plan; evaluation of patient's response to treatment; frequent reassessment; and, discussions with other providers. This critical care time was performed to assess and manage the high probability of imminent, life-threatening deterioration that could result in multi-organ failure. It was exclusive of separately billable procedures and treating other patients and teaching time. Please see MDM section and the rest of the note for further information on patient assessment and treatment. Differential Diagnosis Differential Diagnosis: COVID, RSV, influenza, pneumonia, pulmonary embolism, COPD, viral etiology, ACS, Vital Signs Vital Signs: Vital Signs Temperature 98.2 F 02/19/25 14:35 Pulse Rate 77 02/19/25 14:35 Respiratory Rate 18 02/19/25 14:35 Blood Pressure 161/64 H 02/19/25 14:35 Pulse Oximetry 95 02/19/25 14:35 Temperature 98.0 F 02/19/25 20:43 Pulse Rate 86 02/19/25 20:43 Respiratory Rate 22 H 02/19/25 20:43 Blood Pressure 164/47 H 02/19/25 22:10 Pulse Oximetry 97 02/19/25 20:43 Oxygen Delivery Nasal Cannula 02/19/25 18:01 Oxygen Flow Rate 2 02/19/25 18:01 Lab Data Lab results reviewed: Yes I reviewed the patient's lab results. 02/19/25 14:59 02/19/25 14:59 Labs: Lab Results 02/19/25 02/19/25 02/19/25 Range/Units 14:59 16:03 17:59 WBC 9.0 (4.5-10.0) K/mm3 RBC 4.49 (4.2-5.4) M/mm3 Hgb 13.3 (12.0-15.0) g/dL Hct 40.5 (37.0-47.0) % MCV 90.2 (80-100) fl MCH 29.6 (26-34) pg MCHC 32.8 (32-36) g/dl RDW 12.9 (11.5-14.5) % Plt Count 250 (150-375) k/mm3 MPV 10.1 (7.4-10.4) fl Immature Gran % (Auto) 0.3 (0-0.5) % Neut % (Auto) 56.0 (45.5-73.1) % Lymph % (Auto) 29.4 (18.3-44.2) % [place] % (Auto) 9.4 H (2.6-8.5) % Eos % (Auto) 4.3 (0-4.4) % Baso % (Auto) 0.6 (0.2-1.2) % Lymph # (Auto) 2.65 (0.9-3.2) K/mm3 [place] # (Auto) 0.9 H (0.1-0.6) K/mm3 Eos # (Auto) 0.4 H (0-0.3) K/mm3 Baso # (Auto) 0.1 (0.0-0.1) K/mm3 Abs Immat Gran (auto) 0.03 (0.00-0.031) K/mm3 Absolute Neuts (auto) 5.0 (1.3-6.7) K/mm3 Absolute Nucleated RBC 0.000 (0.0-0.012) K/mm3 Nucleated RBC % 0.0 (0.0-0.2) % Sodium 133 L (137-145) mmol/L Potassium 4.8 (3.4-5.0) mmol/L Chloride 101 (98-107) mmol/L Carbon Dioxide 21 L (22-30) mmol/L Anion Gap 11 (4-12) mmol/L BUN 25 H (7-17) mg/dL Creatinine 1.11 H (0.7-1.0) mg/dL Estim Creat Clear Calc 42 ml/min Estimated GFR 46 L (59 - ) Glucose 94 (65-110) mg/dL Calcium 9.1 (8.4-10.2) mg/dL Total Bilirubin 0.5 (0.2-1.3) mg/dL AST 24 (14-36) U/L ALT 11 (6-35) U/L Alkaline Phosphatase 98 (38-126) U/L Troponin I < 0.012 (0.000-0.034) ng/mL NT-Pro-B Natriuret Pep 284 H (19.9-100) pg/mL Total Protein 7.6 (6.3-8.2) g/dL Albumin 4.2 (3.5-5.1) g/dL Influenza A (RT-PCR) Negative Negative (Negative) Influenza B (RT-PCR) Negative Negative (Negative) RSV (RT-PCR) Negative Negative (Negative) SARS-CoV-2 RNA (RT-PCR) Negative Negative (Negative) Imaging Data Radiologist's impression: Impressions Chest X-Ray 02/19/25 15:29 IMPRESSION: No acute process. Chest CTA 02/19/25 19:09 IMPRESSION: No CT evidence of acute pulmonary embolus. No acute process detected in the chest. Multiple subcentimeter pulmonary nodules, consider follow-up low-dose noncontrast CT of the chest in one year if the patient is at high risk. ECG Data EKG #1: EKG Interpretation: normal rate, sinus rhythm, no ectopy, non-specific ST changes, normal QRS, normal QT and NL axis Critical Care Time Critical Care Time Critical Care Time: Yes Total Critical Care Time: 36 Discharge Plan Discharge Clinical Impression: Pneumonia, Dyspnea Patient Disposition: Still a Patient Condition: Stable
[2025-02-19 15:25] LABS: Alanine Aminotransferase 11 U/L (6-35); Albumin Level 4.2 g/dL (3.5-5.1); Alkaline Phosphatase 98 U/L (38-126); Anion Gap 11 mmol/L (4-12); Aspartate Amino Transferase 24 U/L (14-36); Bilirubin,Total 0.5 mg/dL (0.2-1.3); Blood Urea Nitrogen 25 mg/dL (7-17); Calcium 9.1 mg/dL (8.4-10.2); Carbon Dioxide 21 mmol/L (22-30); Chloride 101 mmol/L (98-107); Estimated CRCL calculation 42 ml/min; Estimated Glomerular Filt Rate 46; Glucose 94 mg/dL (65-110); Potassium 4.8 mmol/L (3.4-5.0); Sodium 133 mmol/L (137-145); Total Protein 7.6 g/dL (6.3-8.2)
[2025-02-19] MEDS: ALBUTEROL SULFATE NEB 2.5 MG/3 ML INH 5 MG INHALATION ×2 (15:25→17:40)
--- OUTSIDE RECORDS SUMMARY | 2025-02-19 16:14 | XMS_ITS | Continuity of Care Document ---
Author Organization [facility] Address [address] [place] [address] [place] [address] Phone Care Team Providers Care Bucket Wash Operator Name Role Phone Thierno Dowd Unavailable [...] Date Provider Providers Copied on Encounter [facility], [address] [place] [address] [address], [place], [place], [id number], [place] tel:[phone] [facility] [place] No Information [address] [place] , [address], [place], [address], [place]. tel:[phone] [facility], [address] [place] [address] [address], [place], [place], [id number], [place] tel:[phone] [facility] [place] No Information [address], [address], [place], [address], [place]. tel:[phone] [facility], [address] [place] [address] [address], [place], [place], [id number], [place] tel:[phone] [facility] No Information [address] , [address], [place], [place], [facility], [place]. tel:[phone] [facility], [address], [place], [place], [id number], [place] tel:[phone] SEC [facility] No Information [address] , [address], [place], [place], [facility], [place]. tel:[phone] Referring Provider: Antonio Plummer, [address] [place] [address], [place], [facility]. tel:[phone] [facility], [address], [place], [place], [id number], [place] tel:[phone] SEC [facility] No Information [address] , [address], [place], [facility], [place]. tel:[phone] Referring Provider: Antonio Plummer, [address] [place] [address], [place], [facility]. tel:[phone] [facility], [address], [place], [place], [id number], [place] tel:[phone] [facility] No Information [address] , [address], [place], [facility], [place]. tel:[phone] Referring Provider: Antonio Plummer, [address] [place] [address], [place], [facility]. tel:[phone] Office/outpat ient Visit, [facility], [address], [place], [place], [id number], [place] tel:[phone] [facility] [place] No Information Apr-2 [address] [place] , [address], [place], [address], . tel:[phone] Referring Provider: Antonio Plummer, [address] [facility], [place], [place], [facility]. tel:[phone] Family History Family Member Type Diagnosis Age [...]
--- OUTSIDE RECORDS SUMMARY | 2025-02-19 16:14 | XMS_ITS | Referral Summary ---
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
--- OUTSIDE RECORDS SUMMARY | 2025-02-19 16:14 | XMS_ITS | Clinical Summary ---
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 [place] [address] PCP - General Internal Medicine 02/19/24
[2025-02-19 16:57] LABS: Influenza A QL RT-PCR Negative (Negative); Influenza B QL RT-PCR Negative (Negative); RSV RNA, RT-PCR Negative (Negative); SARS-CoV-2 RNA PCR Negative (Negative)
[2025-02-19] MEDS: cefTRIAXone 1 GM in SODIUM CHLORIDE 0.9% IV 50 ML 100 ML IVPB (18:03)
[2025-02-19 18:48] LABS: Influenza A QL RT-PCR Negative (Negative); Influenza B QL RT-PCR Negative (Negative); RSV RNA, RT-PCR Negative (Negative); SARS-CoV-2 RNA PCR Negative (Negative)
[2025-02-19] MEDS: AZITHROMYCIN IV 500 MG in SODIUM CHLORIDE 0.9% IV 250 ML IVPB (19:04)
--- NOTE | 2025-02-19 19:06 | ECG_ITS ---
Test Date: 2025-02-19 19:08:28 Measurements Intervals [place] Rate: 89 P: -65 ND: 148 QRS: 67 QRSD: 88 T: 81 QT: 359 QTc: 437 Interpretive Statements SINUS RHYTHM MINIMAL ST DEPRESSION [0.025+ mV ST DEPRESSION] Compared to ECG 02/19/2025 14:50:03 NO SIGNIFICANT CHANGES Electronically Signed On 02-20-2025 16:35:27 CDT by Jana Taylor M.D.
[2025-02-19 19:41] LABS: NT Pro B Type Natriuretic Pept 284 pg/mL (19.9-100)
[2025-02-19 19:42] LABS: Troponin I < 0.012 ng/mL (0.000-0.034)
[2025-02-19] MEDS: ALBUTEROL SULFATE NEB 2.5 MG/3 ML INH INHALATION (19:58)
[2025-02-19 20:02] LABS: Alveolar/Arterial O2 Gradient 73.2 mmHg; Carboxyhemoglobin 0.5 % THb (0-2.0); Fractional Inspired Oxygen 28 %; HCO3 ABG 19.0 mEq/l (22.0-26.0); Methemoglobin ABG 0.3 %THb (0-1.5); Oxygen Content ABG 18.7 %vol (16.0-22.0); Oxygen Saturation ABG 96.4 % (95.0-100.0); PCO2 ABG 33.9 mmHg (35.0-45.0); PO2 ABG 86.4 mmHg (80.0-100.0); PO2 FiO2 Ratio Arterial Blood 3.09 %; Reduced Hemoglobin 3.3 %THb (0-5.0)
[2025-02-19 20:03] LABS: Modified Allen's Test Pass; Site Drawn RIGHT RADIAL
[2025-02-19 20:04] LABS: Liters per Minute 2.0 LPM
--- OUTSIDE RECORDS SUMMARY | 2025-02-19 20:58 | XMS_ITS | Clinical Summary ---
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 MEDICARE Care Teams Precision Lens Polisher Relationship Specialty Start Date End Date Chris Motta MD [facility] [place] [address] PCP - General Internal Medicine 02/19/24
--- OUTSIDE RECORDS SUMMARY | 2025-02-19 20:58 | XMS_ITS | Referral Summary ---
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 MEDICARE Care Teams Loom Fixer Helper Relationship Specialty Start Date End Date Chris Motta MD [facility] [place] [address] PCP - General Internal Medicine 02/19/24
--- OUTSIDE RECORDS SUMMARY | 2025-02-19 20:58 | XMS_ITS | Continuity of Care Document ---
Author Organization [facility] Address [address] [place] [address] [place] [address] Phone Care Team Providers Care Membership Sales Representative Name Role Phone Thierno Dowd Unavailable Unavailable [...] Diagnoses Date Provider Providers Copied on Encounter [facility], [address] [place] [address] [address], [place], [place], [id number], [place] tel:[phone] [facility] [place] No Information [address] [facility] [place] , [address], [place], [address], [place]. tel:[phone] [facility], [address] [place] [address] [address], [place], [place], [id number], [place] tel:[phone] [facility] [place] No Information [address] [facility] [address], [address], [place], [address], [place]. tel:[phone] [facility], [address] [place] [address] [address], [place], [place], [id number], [place] tel:[phone] [facility] No Information [address] [facility] , [address], [place], [place], [facility], [place]. tel:[phone] [facility] Eye [facility], [address], [place], [place], [id number], [place] tel:[phone] SEC [facility] No Information [address] [facility] , [address], [place], [facility], [place]. tel:[phone] Referring Provider: Antonio Plummer, [address] [place] [address], [place], [facility]. tel:[phone] [facility], [address], [place], [place], [id number], [place] tel:[phone] SEC [facility] No Information [address] [facility] , [address], [place], [facility], [place]. tel:[phone] Referring Provider: Antonio Plummer, [address] [place] [address], [place], [facility]. tel:[phone] [facility], [address], [place], [place], [id number], [place] tel:[phone] [facility] No Information [address] [facility] , [address], [place], [facility], [place]. tel:[phone] Referring Provider: Antonio Plummer, [address] [place] [address], [place], [facility]. tel:[phone] Office/outpat ient Visit, [facility], [address], [place], [place], [id number], [place] tel:[phone] [facility] [place] No Information Apr-2 [address] [facility] [place] , [address], [place], [address], . tel:[phone] Referring Provider: Antonio Plummer, [address] [facility], [place], [place], [facility]. tel:[phone] Family History Family Member Type Diagnosis Age At Onset No Information Payers Payer name Insurance type Covered green party ID Authoriza tion(s) No Information Social [...]
--- NOTE | 2025-02-19 21:32 | ADMGEN ---
This patient, Annie Davidson, was admitted to IMU Room 206-02. Patient/family oriented to hospital policies and general routines including ID bracelet, bed and alarms, visiting hours, pain management, procedures, bathroom and other care routines, personal items, smoking policy, room service/diet, and visiting hours. Information on how to activate the Rapid Response Team has been discussed. Patient/Family are encouraged to report perceived risks to care and to ask questions if they do not understand what they are told or what they should do.
--- NOTE | 2025-02-19 21:55 | PCRCNOTE ---
Pt is a hard stick.
[2025-02-20] VITALS (18 sets, daily range): BP systolic 137–172; BP diastolic 53–73; PULSE 76–92; RESP 16–22; TEMP 36–36.9; O2SAT 92–97
[2025-02-20] MEDS: ALBUTEROL SULFATE NEB 2.5 MG/3 ML INH INHALATION ×4 (01:58→21:34)
--- NOTE | 2025-02-20 04:52 | P.HP_ITS ---
H&P: HPI History of Present Illness Date/Time: 02/20/25 04:52 Chief Complaint: Cough Narrative: 89-year-old female with a past medical history of pulmonary embolism, essential hypertension, anxiety, hypothyroidism and urge urinary incontinence who presented to the ER with cough not improved after receiving Z-Jose Angel and Tessalon Perles. The patient tells me that she has been wheezing on and off for 6 months to a year. She reports that she has a cough that is chronic. She told me that her cough was nonproductive but had evidently reported to the ER staff that she has had a productive cough for the last week. She denies any sore throat, nasal congestion or rhinorrhea. She denies any fevers or chills. She is a lifelong nonsmoker and does not have a history of COPD or asthma. She went to see her primary care physician and was treated with a Z-Jose Angel but did not have any improvement in symptoms. She had taken 4/5 doses of azithromycin. He the patient had a pulmonary embolism in September and recently completed her anticoagulant therapy. CT of the chest in the ER was negative for pulmonary embolism. No acute cardiopulmonary process was noted. She denies any orthopnea, paroxysmal nocturnal dyspnea or lower extremity swelling. Patient was wearing oxygen at the time my evaluation. There is no documented episodes of hypoxia. He she denies a known history of obstructive sleep apnea but has not had a polysomnogram in many many years. Review of Systems 2 Review of Systems: 12 systems were reviewed with pertinent positives and negatives per HPI. Except as documented in the HPI, all other systems were reviewed and are negative. [facility] Past Medical History Medical History (Updated 02/20/25 @ 07:43 by Gladys Fontenot DO) Bladder prolapse Uterine prolapse Anxiety and depression Hypothyroidism Hyperlipidemia Essential hypertension Herniated lumbar intervertebral disc Surgical History Surgical History (Updated 02/20/25 @ 05:38 by Gladys Fontenot DO) Hx of cholecystectomy History of ventral hernia repair History of resection of large bowel Due to diverticular bleed History of total left knee replacement Status post cataract extraction of both eyes with insertion of intraocular lens History of tonsillectomy and adenoidectomy Family History Family History Father Acute myocardial infarction Mother Cerebrovascular accident Sibling Heart disease Social History Social History (Updated 02/20/25 @ 05:40 by Gladys Fontenot DO) Social History: She has been since 2019. She was for 63 years prior to her 's . She was a homemaker and raised 2 daughters. Code status: Full code Surrogate decision maker: Both daughters Smoking status: Never smoker Alcohol intake: never Substance use: never Substance use type: does not use Do You Feel Safe in your Home?: Yes Lack of Transportation: No Lack of Food: Never True Current Housing: I Have Housing Concerned About Future Housing: No Difficulty Paying Gas/Electric Bills: No Difficulty Paying for Meds: No Currently Unemployed: No Education: High School Diploma/GED Difficulty w/ Childcare or Family Care: No Spiritual care concerns: No Meds Home Medications and Allergies Home Medications ?Medication ?Instructions ?Recorded ?Confirmed ?Type alprazolam 0.5 mg tablet 0.5 mg PO HS 03/02/24 02/19/25 History amlodipine 5 mg tablet 5 mg PO DAILY 03/02/24 02/19/25 History aspirin 81 mg capsule 81 mg PO DAILY 03/02/24 02/19/25 History escitalopram oxalate 5 mg tablet 5 mg PO DAILY 03/02/24 02/19/25 History indapamide 2.5 mg tablet 2.5 mg PO DAILY 03/02/24 02/19/25 History levothyroxine 125 mcg tablet 125 mcg PO DAILY 03/02/24 02/19/25 History losartan 100 mg tablet 100 mg PO DAILY 03/02/24 02/19/25 History meclizine 25 mg tablet 25 mg PO TID PRN Vertigo 03/02/24 02/19/25 History oxybutynin chloride 10 mg 10 mg PO HS 03/02/24 02/19/25 History tablet,extended release 24 hr potassium chloride 20 mEq 20 meq PO DAILY 03/02/24 02/19/25 History tablet,extended release simvastatin 20 mg tablet 20 mg PO DAILY 03/02/24 02/19/25 History Allergies Allergy/AdvReac Type Severity Reaction Status Date / Time levofloxacin (From Levaquin) Allergy Intermediate Rash Verified 02/19/25 14:38 Vital Signs Vital Signs - 24 hr 02/19/25 14:35 02/19/25 15:01 02/19/25 15:02 Temperature 98.2 F Pulse Rate 77 65 68 Respiratory Rate 18 19 21 H Blood Pressure 161/64 H 182/65 H 182/65 H Pulse Oximetry 95 93 91 Oxygen Delivery Oxygen Flow Rate 02/19/25 15:05 02/19/25 15:05 02/19/25 15:16 Temperature Pulse Rate 66 65 Respiratory Rate 19 Blood Pressure 170/71 H Pulse Oximetry 93 93 Oxygen Delivery Room Air Oxygen Flow Rate 02/19/25 15:31 02/19/25 15:34 02/19/25 15:46 Temperature Pulse Rate 68 63 66 Respiratory Rate 17 19 23 H Blood Pressure 156/66 H 159/50 H Pulse Oximetry 95 98 Oxygen Delivery Oxygen Flow Rate 02/19/25 16:01 02/19/25 16:31 02/19/25 17:01 Temperature Pulse Rate 72 80 Respiratory Rate 24 H 22 H Blood Pressure 166/51 H 182/62 H 175/127 H Pulse Oximetry 94 100 94 Oxygen Delivery Oxygen Flow Rate 02/19/25 17:32 02/19/25 17:40 02/19/25 18:01 Temperature Pulse Rate 66 Respiratory Rate 19 Blood Pressure 167/46 H Pulse Oximetry 94 98 Oxygen Delivery Nasal Cannula Oxygen Flow Rate 2 02/19/25 18:15 02/19/25 18:31 02/19/25 19:12 Temperature Pulse Rate 78 79 90 Respiratory Rate 23 H 35 H 18 Blood Pressure 162/50 H 160/54 H 187/62 H Pulse Oximetry 97 96 Oxygen Delivery Oxygen Flow Rate 02/19/25 19:58 02/19/25 20:09 02/19/25 20:23 Temperature Pulse Rate 83 83 83 Respiratory Rate 20 20 25 H Blood Pressure 160/63 H Pulse Oximetry 97 Oxygen Delivery Oxygen Flow Rate 02/19/25 20:43 02/19/25 21:00 02/19/25 22:00 Temperature 98.0 F Pulse Rate 86 86 Respiratory Rate 22 H Blood Pressure 184/57 H Pulse Oximetry 97 97 Oxygen Delivery Nasal Cannula Oxygen Flow Rate 2 02/19/25 22:10 02/20/25 00:00 02/20/25 00:00 Temperature 98.5 F Pulse Rate 84 Respiratory Rate 20 Blood Pressure 164/47 H 153/53 H Pulse Oximetry 97 97 Oxygen Delivery Nasal Cannula Oxygen Flow Rate 2 02/20/25 00:00 02/20/25 01:58 02/20/25 02:00 Temperature Pulse Rate 84 84 Respiratory Rate 16 Blood Pressure Pulse Oximetry 94 Oxygen Delivery Nasal Cannula Oxygen Flow Rate 2 02/20/25 02:00 02/20/25 02:03 Temperature Pulse Rate 80 80 Respiratory Rate 16 Blood Pressure Pulse Oximetry Oxygen Delivery Oxygen Flow Rate Exam 2 Narrative: Weight 119.6 kg BMI 40.1 Const: Other: Morbidly obese, appears stated age, mildly ill-appearing HENMT: Other: Head is normocephalic atraumatic, fair dentition, crowded posterior oropharynx Eyes: Other: Pupils are equal and reactive, bilateral lens implants noted Neck: Other: No JVD, no lymphadenopathy Resp: Other: End-expiratory wheezing intermittent greater on the right and left GI: Other: Obese, soft, nontender, normoactive bowel sounds Skin: Other: Mild pallor, non jaundice Neuro: Other: Alert orient x4, speech is clear, no facial asymmetry, no localizing neurologic deficits noted during the course of conversation Extrem: Other: Scar over the left knee consistent with history of left knee arthroplasty, small effusion of the right knee with underlying osteoarthritic changes noted, no clubbing, cyanosis or dependent edema of the lower extremities Psych: Other: Appropriate mood and affect, pleasant and cooperative, judgment and insight intact H&P: Results Labs Labs: Laboratory Tests 02/19/25 14:59 02/19/25 14:59 02/19/25 02/19/25 02/19/25 14:59 16:03 17:59 WBC 9.0 RBC 4.49 Hgb 13.3 Hct 40.5 MCV 90.2 MCH 29.6 MCHC 32.8 RDW 12.9 Plt Count 250 MPV 10.1 Immature Gran % (Auto) 0.3 Neut % (Auto) 56.0 Lymph % (Auto) 29.4 Slope % (Auto) 9.4 H Eos % (Auto) 4.3 Baso % (Auto) 0.6 Lymph # (Auto) 2.65 Slope # (Auto) 0.9 H Eos # (Auto) 0.4 H Baso # (Auto) 0.1 Abs Immat Gran (auto) 0.03 Absolute Neuts (auto) 5.0 Absolute Nucleated RBC 0.000 Nucleated RBC % 0.0 Puncture Site ABG pH ABG pCO2 ABG pO2 ABG PO2/FiO2 Ratio ABG HCO3 ABG O2 Saturation ABG O2 Content ABG Base Excess A-a Gradient Oxyhemoglobin Carboxyhemoglobin Methemoglobin Reduced Hemoglobin Total Hemoglobin O2 Delivery Device O2 Liters/Min Sodium 133 L Potassium 4.8 Chloride 101 Carbon Dioxide 21 L Anion Gap 11 BUN 25 H Creatinine 1.11 H Estim Creat Clear Calc 42 Estimated GFR 46 L Glucose 94 Calcium 9.1 Total Bilirubin 0.5 AST 24 ALT 11 Alkaline Phosphatase 98 Troponin I < 0.012 NT-Pro-B Natriuret Pep 284 H Total Protein 7.6 Albumin 4.2 Influenza A (RT-PCR) Negative Negative Influenza B (RT-PCR) Negative Negative RSV (RT-PCR) Negative Negative SARS-CoV-2 RNA (RT-PCR) Negative Negative 02/19/25 19:46 WBC RBC Hgb Hct MCV MCH MCHC RDW Plt Count MPV Immature Gran % (Auto) Neut % (Auto) Lymph % (Auto) Slope % (Auto) Eos % (Auto) Baso % (Auto) Lymph # (Auto) Slope # (Auto) Eos # (Auto) Baso # (Auto) Abs Immat Gran (auto) Absolute Neuts (auto) Absolute Nucleated RBC Nucleated RBC % Puncture Site Pending ABG pH Pending ABG pCO2 Pending ABG pO2 Pending ABG PO2/FiO2 Ratio Pending ABG HCO3 Pending ABG O2 Saturation Pending ABG O2 Content Pending ABG Base Excess Pending A-a Gradient Pending Oxyhemoglobin Pending Carboxyhemoglobin Pending Methemoglobin Pending Reduced Hemoglobin Pending Total Hemoglobin Pending O2 Delivery Device Pending O2 Liters/Min Pending Sodium Potassium Chloride Carbon Dioxide Anion Gap BUN Creatinine Estim Creat Clear Calc Estimated GFR Glucose Calcium Total Bilirubin AST ALT Alkaline Phosphatase Troponin I NT-Pro-B Natriuret Pep Total Protein Albumin Influenza A (RT-PCR) Influenza B (RT-PCR) RSV (RT-PCR) SARS-CoV-2 RNA (RT-PCR) Impressions Chest X-Ray 02/19/25 15:29 IMPRESSION: No acute process. Chest CTA 02/19/25 19:09 IMPRESSION: No CT evidence of acute pulmonary embolus. No acute process detected in the chest. Multiple subcentimeter pulmonary nodules, consider follow-up low-dose noncontrast CT of the chest in one year if the patient is at high risk. EKG: Normal sinus rhythm rate [address] depression in V5 V6 QTC 437 significant baseline artifact. Cardiology interpretation pending All imaging and EKGs personally reviewed and interpreted. And unless stated otherwise agree with radiologic and cardiology interpretation. Assessment and Plan Assessment and plan (1) Acute bronchitis due to infection: Code(s): J20.9 - Acute bronchitis, unspecified Status: Acute (2) Hypothyroidism: Qualifiers: Hypothyroidism type: unspecified Qualified Code(s): E03.9 - Hypothyroidism, unspecified Code(s): E03.9 - Hypothyroidism, unspecified Status: Acute (3) Essential hypertension: Code(s): I10 - Essential (primary) hypertension Status: Acute Plan Patient's imaging does not demonstrate any evidence of pneumonia. I suspect patient likely has acute bronchitis due to unspecified viral organism. Will continue nebulizer treatment and steroids. The patient is adamant that she wants to go home today. The patient is on oxygen therapy but no documented episodes of hypoxia noted in the chart. Will attempt to wean oxygen in see how patient tolerates this. Will resume the patient's home antihypertensives and monitor blood pressures. Will try to avoid over-correction of blood pressures given the patient's advanced age. Goals of care discussion was performed with the patient. She states that she would want to be full code because she would want the chance to come back and see her family. Patient has been admitted as observation status. Quality VTE Prophylaxis VTE prophylaxis: mechanical ordered (SCDs) Hospitalist [facility] Advance Care Plan I have confirmed that the patient's Advanced Care Plan is present, code status is documented, or surrogate decision maker is listed in patient medical record.: Yes Medication Reconciliation I have utilized all available resources to obtain, update and review the patients current medications (includes all prescriptions, OTC, herbals, cannabis, and nutritional supplements).: Yes
[2025-02-20] MEDS: LEVOTHYROXINE SODIUM 125 MCG TABLET PO (05:59)
[2025-02-20] MEDS: SIMVASTATIN 20 MG TABLET PO (08:05)
[2025-02-20] MEDS: ASPIRIN 81 MG ENTERIC TABLET PO (08:06)
[2025-02-20] MEDS: LOSARTAN POTASSIUM 100 MG TABLET PO (08:06)
[2025-02-20] MEDS: ESCITALOPRAM OXALATE 5 MG TABLET PO (08:06)
[2025-02-20] MEDS: POTASSIUM CHLORIDE 20 MEQ ER TABLET PO (08:06)
[2025-02-20 08:24] LABS: Hematocrit 40.2 % (37.0-47.0); Hemoglobin 13.6 g/dL (12.0-15.0); Mean Corpuscular HGB Conc 33.8 g/dl (32-36); Mean Corpuscular Hemoglobin 29.6 pg (26-34); Mean Corpuscular Volume 87.6 fl (80-100); Platelet Count Result 258 k/mm3 (150-375); Red Blood Count 4.59 M/mm3 (4.2-5.4); White Blood Count 8.9 K/mm3 (4.5-10.0)
[2025-02-20 08:38] LABS: Anion Gap 16 mmol/L (4-12); Blood Urea Nitrogen 26 mg/dL (7-17); Calcium 9.4 mg/dL (8.4-10.2); Carbon Dioxide 17 mmol/L (22-30); Chloride 98 mmol/L (98-107); Estimated CRCL calculation 43 ml/min; Estimated Glomerular Filt Rate 48; Glucose 226 mg/dL (65-110); Potassium 4.1 mmol/L (3.4-5.0); Sodium 131 mmol/L (137-145)
[2025-02-20] MEDS: ALPRAZolam (*CRX) 0.5 MG TABLET PO ×2 (08:38→20:06)
[2025-02-20] MEDS: INDAPAMIDE 2.5 MG TABLET PO (08:38)
[2025-02-20] MEDS: GABAPENTIN 100 MG CAPSULE PO ×3 (08:38→20:06)
--- NOTE | 2025-02-20 15:48 | P.PNIM_ITS ---
Progress Note: A&P Assessment and Plan (1) Acute bronchitis due to infection: Code(s): J20.9 - Acute bronchitis, unspecified Status: Acute (2) Hypothyroidism: Qualifiers: Hypothyroidism type: unspecified Qualified Code(s): E03.9 - Hypothyroidism, unspecified Code(s): E03.9 - Hypothyroidism, unspecified Status: Acute (3) Essential hypertension: Code(s): I10 - Essential (primary) hypertension Status: Acute Plan Patient's imaging does not demonstrate any evidence of pneumonia. I suspect patient likely has acute bronchitis due to unspecified viral organism. Will continue nebulizer treatment and steroids. The patient is adamant that she wants to go home today. The patient is on oxygen therapy but no documented episodes of hypoxia noted in the chart. Will attempt to wean oxygen in see how patient tolerates this. Will resume the patient's home antihypertensives and monitor blood pressures. Will try to avoid over-correction of blood pressures given the patient's advanced age. Goals of care discussion was performed with the patient. She states that she would want to be full code because she would want the chance to come back and see her family. 89 y/o female with cough and wheezing was clinically not improving after treated with zithromax by her Primary care provider, Eldon suspected patient may have viral and started patient on methylprednisone and updraft and today patient stats she feeling better, her cough has improved and she is not wheezing, will CPM, will reassess patient in the morning plan, will have PT/OT evaluate the patient Patient has been admitted as observation status. Subjective Date/time seen: 02/20/25 15:48 Interval history: Cough H&P-Narrative: 89-year-old female with a past medical history of pulmonary embolism, essential hypertension, anxiety, hypothyroidism and urge urinary incontinence who presented to the ER with cough not improved after receiving Z-Jose Angel and Tessalon Perles. The patient tells me that she has been wheezing on and off for 6 months to a year. She reports that she has a cough that is chronic. She told me that her cough was nonproductive but had evidently reported to the ER staff that she has had a productive cough for the last week. She denies any sore throat, nasal congestion or rhinorrhea. She denies any fevers or chills. She is a lifelong nonsmoker and does not have a history of COPD or asthma. She went to see her primary care physician and was treated with a Z-Jose Angel but did not have any improvement in symptoms. She had taken 4/5 doses of azithromycin. He the pat ient had a pulmonary embolism in September and recently completed her anticoagulant therapy. CT of the chest in the ER was negative for pulmonary embolism. No acute cardiopulmonary process was noted. She denies any orthopnea, paroxysmal nocturnal dyspnea or lower extremity swelling. Patient was wearing oxygen at the time my evaluation. There is no documented episodes of hypoxia. He she denies a known history of obstructive sleep apnea but has not had a polysomnogram in many many years. 89 y/o female with cough and wheezing was clinically not improving after treated with zithromax by her Primary care provider, Eldon suspected patient may have viral and started patient on methylprednisone and updraft and today patient stats she feeling better, her cough has improved and she is not wheezing, will CPM, will reassess patient in the morning plan, will have PT/OT evaluate the patient Review of Systems Review of Systems: 12 systems were reviewed with pertinent positives and negatives per HPI. Except as documented in the HPI, all other systems were reviewed and are negative. Exam Narrative: Morbidly obese Patient is comfortable, NAD HEENT: eyes are clear and none icteric LUNGS:CTA HEART: RR S1S2 ABD: BS+, Soft and nontender Lower extremities: no edema SKIN: nonjaundiced Neuro: grossly intact. Objective Data Vital Signs Vital Signs: Vital Signs - 24 hr 02/19/25 16:01 02/19/25 16:31 02/19/25 17:01 Temperature Pulse Rate 72 80 Respiratory Rate 24 H 22 H Blood Pressure 166/51 H 182/62 H 175/127 H Pulse Oximetry 94 100 94 Oxygen Delivery Oxygen Flow Rate 02/19/25 17:32 02/19/25 17:40 02/19/25 18:01 Temperature Pulse Rate 66 Respiratory Rate 19 Blood Pressure 167/46 H Pulse Oximetry 94 98 Oxygen Delivery Nasal Cannula Oxygen Flow Rate 2 02/19/25 18:15 02/19/25 18:31 02/19/25 19:12 Temperature Pulse Rate 78 79 90 Respiratory Rate 23 H 35 H 18 Blood Pressure 162/50 H 160/54 H 187/62 H Pulse Oximetry 97 96 Oxygen Delivery Oxygen Flow Rate 02/19/25 19:58 02/19/25 20:09 02/19/25 20:23 Temperature Pulse Rate 83 83 83 Respiratory Rate 20 20 25 H Blood Pressure 160/63 H Pulse Oximetry 97 Oxygen Delivery Oxygen Flow Rate 02/19/25 20:43 02/19/25 21:00 02/19/25 22:00 Temperature 36.7 C Pulse Rate 86 86 Respiratory Rate 22 H Blood Pressure 184/57 H Pulse Oximetry 97 97 Oxygen Delivery Nasal Cannula Oxygen Flow Rate 2 02/19/25 22:10 02/20/25 00:00 02/20/25 00:00 Temperature 36.9 C Pulse Rate 84 Respiratory Rate 20 Blood Pressure 164/47 H 153/53 H Pulse Oximetry 97 97 Oxygen Delivery Nasal Cannula Oxygen Flow Rate 2 02/20/25 00:00 02/20/25 01:58 02/20/25 02:00 Temperature Pulse Rate 84 84 Respiratory Rate 16 Blood Pressure Pulse Oximetry 94 Oxygen Delivery Nasal Cannula Oxygen Flow Rate 2 02/20/25 02:00 02/20/25 02:03 02/20/25 04:00 Temperature Pulse Rate 80 80 Respiratory Rate 16 Blood Pressure Pulse Oximetry 95 Oxygen Delivery Nasal Cannula Oxygen Flow Rate 2 02/20/25 04:00 02/20/25 04:00 02/20/25 06:00 Temperature 36.7 C Pulse Rate 86 82 83 Respiratory Rate 22 H Blood Pressure 167/73 H Pulse Oximetry 95 Oxygen Delivery Oxygen Flow Rate 02/20/25 07:00 02/20/25 07:17 02/20/25 07:23 Temperature 36.5 C Pulse Rate 86 86 Respiratory Rate 20 20 Blood Pressure 172/65 H Pulse Oximetry 96 94 95 Oxygen Delivery Room Air Nasal Cannula Oxygen Flow Rate 2 02/20/25 07:23 02/20/25 07:30 02/20/25 10:23 Temperature 36.2 C L Pulse Rate 86 84 87 Respiratory Rate 20 20 22 H Blood Pressure 169/59 H Pulse Oximetry 96 Oxygen Delivery Oxygen Flow Rate 02/20/25 13:52 02/20/25 13:52 02/20/25 14:03 Temperature Pulse Rate 92 92 80 Respiratory Rate 20 20 20 Blood Pressure Pulse Oximetry 94 Oxygen Delivery Room Air Oxygen Flow Rate 02/20/25 15:25 Temperature 36.6 C Pulse Rate 76 Respiratory Rate 20 Blood Pressure 137/66 Pulse Oximetry 97 Oxygen Delivery Oxygen Flow Rate Intake/Output Intake/Output: Intake & Output 02/17/25 02/18/25 02/19/25 02/20/25 23:59 23:59 23:59 23:59 Intake Total 300 860 Output Total 350 Balance 300 510 Meds/Results Medications: Active Medications Generic Name Dose Route Start Last Admin Trade Name Kevenq PRN Reason Stop Dose Admin Albuterol 2.5 mg 02/19/25 20:00 02/20/25 13:51 Albuterol Sulfate Neb 2.5 Mg/3 Ml Inh INHALATION 2.5 mg Q6HRT GAUTAM Administration Alprazolam 0.5 mg 02/20/25 08:30 02/20/25 08:38 Alprazolam (*Crx) 0.5 Mg Tablet PO 0.5 mg DAILY GAUTAM Administration Amlodipine Besylate 5 mg 02/20/25 09:00 02/20/25 08:05 Amlodipine Besylate 5 Mg Tablet PO 5 mg DAILY GAUTAM Administration Aspirin 81 mg 02/20/25 08:00 02/20/25 08:10 Aspirin 81 Mg Chewable Tablet PO Not Given DAILY@0800 [facility] Aspirin 81 mg 02/20/25 09:00 02/20/25 08:06 Aspirin 81 Mg Enteric Tablet PO 81 mg QAM GAUTAM Administration Escitalopram Oxalate 5 mg 02/20/25 09:00 02/20/25 08:06 Escitalopram Oxalate 5 Mg Tablet PO 5 mg DAILY GAUTAM Administration Gabapentin 100 mg 02/20/25 09:00 02/20/25 12:16 Gabapentin 100 Mg Capsule PO 100 mg TID GAUTAM Administration Indapamide 2.5 mg 02/20/25 09:00 02/20/25 08:38 Indapamide 2.5 Mg Tablet PO 2.5 mg QAM GAUTAM Administration Levothyroxine Sodium 125 mcg 02/20/25 06:30 02/20/25 05:59 Levothyroxine Sodium 125 Mcg Tablet PO 125 mcg DAILY@0630 [facility] Administration Losartan Potassium 100 mg 02/20/25 09:00 02/20/25 08:06 Losartan Potassium 100 Mg Tablet PO 100 mg DAILY GAUTAM Administration Meclizine HCl 25 mg 02/20/25 05:32 Meclizine Hcl 25 Mg Tablet PO TID PRN Vertigo Methylprednisolone Sodium Succinate 60 mg 02/20/25 00:00 02/20/25 12:16 Methylprednisolone Sod Succ 125 Mg Vial IV PUSH 60 mg Q6HR GAUTAM Administration Oxybutynin Chloride 10 mg 02/20/25 21:00 Oxybutynin Chloride Xl 5 Mg Tab.Er.24 PO HS GAUTAM Potassium Chloride 20 meq 02/20/25 08:00 02/20/25 08:06 Potassium Chloride 20 Meq Er Tablet PO 20 meq DAILY@0800 GAUTAM Administration Simvastatin 20 mg 02/20/25 09:00 02/20/25 08:05 Simvastatin 20 Mg Tablet PO 20 mg DAILY GAUTAM Administration Radiology Results: ITS Impressions Chest X-Ray 02/19/25 15:29 IMPRESSION: No acute process. Chest CTA 02/19/25 19:09 IMPRESSION: No CT evidence of acute pulmonary embolus. No acute process detected in the chest. Multiple subcentimeter pulmonary nodules, consider follow-up low-dose noncontrast CT of the chest in one year if the patient is at high risk. Labs Labs: Laboratory Results - last 24 hr 02/19/25 02/19/25 02/19/25 14:59 16:03 17:59 WBC RBC Hgb Hct MCV MCH MCHC RDW Plt Count MPV Puncture Site ABG pH ABG pCO2 ABG pO2 ABG PO2/FiO2 Ratio ABG HCO3 ABG O2 Saturation ABG O2 Content ABG Base Excess A-a Gradient Oxyhemoglobin Carboxyhemoglobin Methemoglobin Reduced Hemoglobin Total Hemoglobin O2 Delivery Device O2 Liters/Min FiO2 Sodium Potassium Chloride Carbon Dioxide Anion Gap BUN Creatinine Estim Creat Clear Calc Estimated GFR Glucose Calcium Troponin I < 0.012 NT-Pro-B Natriuret Pep 284 H Influenza A (RT-PCR) Negative Negative Influenza B (RT-PCR) Negative Negative RSV (RT-PCR) Negative Negative SARS-CoV-2 RNA (RT-PCR) Negative Negative 02/19/25 02/20/25 19:46 08:19 WBC 8.9 RBC 4.59 Hgb 13.6 Hct 40.2 MCV 87.6 MCH 29.6 MCHC 33.8 RDW 12.5 Plt Count 258 MPV 10.0 Puncture Site Right radial ABG pH 7.367 ABG pCO2 33.9 L ABG pO2 86.4 ABG PO2/FiO2 Ratio 3.09 ABG HCO3 19.0 L ABG O2 Saturation 96.4 ABG O2 Content 18.7 ABG Base Excess -5.4 A-a Gradient 73.2 Oxyhemoglobin 95.9 Carboxyhemoglobin 0.5 Methemoglobin 0.3 Reduced Hemoglobin 3.3 Total Hemoglobin 13.8 O2 Delivery Device Nasal cannula O2 Liters/Min 2.0 FiO2 28 Sodium 131 L Potassium 4.1 Chloride 98 Carbon Dioxide 17 L Anion Gap 16 H BUN 26 H Creatinine 1.08 H Estim Creat Clear Calc 43 Estimated GFR 48 L Glucose 226 H Calcium 9.4 Troponin I NT-Pro-B Natriuret Pep Influenza A (RT-PCR) Influenza B (RT-PCR) RSV (RT-PCR) SARS-CoV-2 RNA (RT-PCR) Quality VTE Prophylaxis VTE prophylaxis: mechanical ordered (SCDs)
[2025-02-20] MEDS: oxyBUTYnin CHLORIDE XL 5 MG TAB.ER.24 10 MG PO (20:07)
[2025-02-21] MEDS: ALBUTEROL SULFATE NEB 2.5 MG/3 ML INH INHALATION (01:20)
[2025-02-21 01:21] VITALS: PULSE 77; RESP 20
[2025-02-21] MEDS: LEVOTHYROXINE SODIUM 125 MCG TABLET PO (05:36)
[2025-02-21 06:00] VITALS: BP 150/59; PULSE 75; RESP 18; TEMP 36; O2SAT 95
[2025-02-21 08:00] VITALS: PULSE 75; RESP 18; O2SAT 95
[2025-02-21] MEDS: POTASSIUM CHLORIDE 20 MEQ ER TABLET PO (09:06)
[2025-02-21] MEDS: ASPIRIN 81 MG ENTERIC TABLET PO (09:06)
[2025-02-21] MEDS: INDAPAMIDE 2.5 MG TABLET PO (09:06)
[2025-02-21] MEDS: ASPIRIN 81 MG CHEWABLE TABLET PO (09:06)
[2025-02-21] MEDS: GABAPENTIN 100 MG CAPSULE PO (09:07)
[2025-02-21] MEDS: SIMVASTATIN 20 MG TABLET PO (09:07)
[2025-02-21] MEDS: ESCITALOPRAM OXALATE 5 MG TABLET PO (09:07)
[2025-02-21] MEDS: ALPRAZolam (*CRX) 0.5 MG TABLET PO (09:07)
[2025-02-21] MEDS: LOSARTAN POTASSIUM 100 MG TABLET PO (09:07)
--- NOTE | 2025-02-21 09:53 | PM.DS ---
DS: Admitting Diagnosis Discharge Date 02/21/25 Admitting Diagnosis Cough DS: Discharge Diagnosis Discharge Diagnosis (1) Acute bronchitis due to infection: Code(s): J20.9 - Acute bronchitis, unspecified Status: Acute (2) Hypothyroidism: Qualifiers: Hypothyroidism type: unspecified Qualified Code(s): E03.9 - Hypothyroidism, unspecified Code(s): E03.9 - Hypothyroidism, unspecified Status: Acute (3) Essential hypertension: Code(s): I10 - Essential (primary) hypertension Status: Acute Plan Patient's imaging does not demonstrate any evidence of pneumonia. I suspect patient likely has acute bronchitis due to unspecified viral organism. Will continue nebulizer treatment and steroids. The patient is adamant that she wants to go home today. The patient is on oxygen therapy but no documented episodes of hypoxia noted in the chart. Will attempt to wean oxygen in see how patient tolerates this. Will resume the patient's home antihypertensives and monitor blood pressures. Will try to avoid over-correction of blood pressures given the patient's advanced age. Goals of care discussion was performed with the patient. She states that she would want to be full code because she would want the chance to come back and see her family. 89 y/o female with cough and wheezing was clinically not improving after treated with zithromax by her Primary care provider, Eldon suspected patient may have viral and started patient on methylprednisone and updraft and today patient stats she feeling better, her cough has improved and she is not wheezing, will CPM, will reassess patient in the morning plan, will have PT/OT evaluate the patient Patient has been admitted as observation status. DS: Summary Hospital Course Hospital Course: 89 y/o female with cough and wheezing was clinically not improving after treated with zithromax by her Primary care provider, Eldon suspected patient may have viral and started patient on methylprednisone and updraft and today patient stats she feeling better, her cough has improved and she is not wheezing, will CPM, will reassess patient in the morning plan, will have PT/OT evaluate the patient Today patient is feeling much better, her cough and wheezing has improved, will discharge patient today. Time Spent with Patient Time attestation: Total time spent providing and/or coordinating discharge services: Exam Narrative: Morbidly obese Patient is comfortable, NAD HEENT: eyes are clear and none icteric LUNGS:CTA HEART: RR S1S2 ABD: BS+, Soft and nontender Lower extremities: no edema SKIN: nonjaundiced Neuro: grossly intact. DS: Data Data Completed and Pending Labs on day of discharge: Labs from last 24 hours 02/19/25 19:46 Puncture Site Right radial ABG pH 7.367 ABG pCO2 33.9 L ABG pO2 86.4 ABG PO2/FiO2 Ratio 3.09 ABG HCO3 19.0 L ABG O2 Saturation 96.4 ABG O2 Content 18.7 ABG Base Excess -5.4 A-a Gradient 73.2 Oxyhemoglobin 95.9 Carboxyhemoglobin 0.5 Methemoglobin 0.3 Reduced Hemoglobin 3.3 Total Hemoglobin 13.8 O2 Delivery Device Nasal cannula O2 Liters/Min 2.0 FiO2 28 Discharge Plan Discharge Attending physician on discharge: Sandy Holley Consulting providers: Nick Lau; Jana Taylor; Gladys Fontenot; Rebecca Pemberton; Wilber Chen Discharging Clinician: Tavares Aguirre Patient Disposition: Home Activity: as tolerated Diet: heart healthy Discharge Instructions: patient to follow up with her primary care provider as soon as possible, patient is instructed if any symptoms worsen to go to nearest ER. Patient Instructions: Antibiotic Form Patient Language: Filipino Stand Alone Forms: General Discharge Information Follow-up/Referrals: Kalia,Chris Aguiar MD [Primary Care Provider] - Discharge Medications: New prednisone 10 mg tablet 10 mg PO DAILY Qty: 63 0RF Rx Instructions: 6Tx3d, 5Tx3d, 4Tx3d, 3Tx3d, 2Tx3d, 1Tx3d albuterol sulfate [Ventolin HFA] 90 mcg/actuation HFA aerosol inhaler 1 inh inhalation QID PRN (Reason: shortness of breath or wheezing) Qty: 8.5 0RF ipratropium-albuterol 0.5 mg-3 mg(2.5 mg base)/3 mL solution for nebulization 3 ml inhalation QID PRN (Reason: shortness of breath or wheezing) Qty: 90 0RF (DME) nebulizer and compressor Device See Rx Instructions .ROUTE .MEDSUPPLY Qty: 1 0RF Rx Instructions: As directed Continued oxybutynin chloride 10 mg Tablet Extended Release 24hr 10 mg PO HS indapamide 2.5 mg Tablet 2.5 mg PO DAILY amlodipine 5 mg Tablet 5 mg PO DAILY alprazolam 0.5 mg Tablet 0.5 mg PO HS meclizine 25 mg Tablet 25 mg PO TID PRN (Reason: Vertigo) simvastatin 20 mg Tablet 20 mg PO DAILY levothyroxine 125 mcg Tablet 125 mcg PO DAILY losartan 100 mg Tablet 100 mg PO DAILY escitalopram oxalate 5 mg Tablet 5 mg PO DAILY potassium chloride 20 mEq Tablet Extended Release 20 meq PO DAILY aspirin 81 mg Capsule 81 mg PO DAILY gabapentin 100 mg capsule 100 mg PO Q8H Date of admission: 02/20/25 14:28 Primary Care Provider: Kalia,Chris Aguiar Admitting Provider: Sandy Holley Attending physician on admission: Tavares Aguirre Condition: Stable
== END 2025-02-21 12:27 | disposition home or self-care (01) | DRG 202 ==
LOC: ANHED 17:29 → ANHIMU 20:56 → ANH3MEDSUR 02-20 09:59
PROVIDERS: Internal Medicine; Admitting Provider Internal Medicine; Emergency Provider Emergency Medicine; PCP Internal Medicine; Visit Provider Family Medicine
DX: J20.8 Acute bronchitis due to other specified organisms (principal); Z68.41 Body mass index [BMI] 40.0-44.9, adult; E03.9 Hypothyroidism, unspecified; I10 Essential (primary) hypertension; N39.41 Urge incontinence; E66.01 Morbid (severe) obesity due to excess calories; F41.8 Other specified anxiety disorders; E78.5 Hyperlipidemia, unspecified; K45.8 Other specified abdominal hernia without obstruction or gangrene; Z90.49 Acquired absence of other specified parts of digestive tract; Z96.652 Presence of left artificial knee joint; Z86.711 Personal history of pulmonary embolism; Z96.1 Presence of intraocular lens; Z98.42 Cataract extraction status, left eye; Z98.41 Cataract extraction status, right eye
CPT/HCPCS: 36415; 36600; 71045; 71275; 80048; 80053; 82375; 82805; 83050; 83880; 84484; 85018; 85025; 85027; 87040; 87637; 93005; 94640; 96365; 96366; 96367; 96375; 99285; A9270; G0378; J0456; J0696; J2919; J7050; Q9967

== ENCOUNTER 2025-03-27 16:22 | Inpatient (IN) | payer MEDICARE, SELFPAY ==
--- OUTSIDE RECORDS SUMMARY | 2008-06-27 09:30 | XMS_ITS | Continuity of Care Document ---
Author Organization [facility] Address [address] [place] [address] [place] [address] Phone Care Team Providers Care Business Planning Analyst Name Role Phone Thierno Dowd Unavailable Unavailable Procedures Procedure Date Post-op Follow-up Visit Post-op Follow-up Visit Remove Cataract, Insert Lens Post-op Follow-up Visit Echo Exam Of Eye-Professional 200 8 Post-op Follow-up Visit Remove Cataract, Insert Lens Office/outpatient Visit, Est Echo Exam Of Eye Advance Directives Directive Yes / No Effective Date File Name No Information Encounters Encounter Description Practice Location Reason(s) For Visit Diagnoses Date Provider Providers Copied on Encounter [facility], [address] [place] [address] [address], [place], [place], [address], [place] tel:[phone] [facility] [place] No Information [address] [facility] [place] , [address], [place], [address], [place]. tel:[phone] [facility], [address] [place] [address] [address], [place], [place], [address], [place] tel:[phone] [facility] [place] No Information [address] [facility] [address], [address], [place], [address], [place]. tel:[phone] [facility], [address] [place] [address] [address], [place], [place], [address], [place] tel:[phone] [facility] No Information 8 Doisy Edward. [address] [facility] , [address], [place], [place], [facility], [place]. tel:[phone] [facility], [address], [place], [place], [address], [place] tel:[phone] SEC [facility] No Information 200 8 Doisy Edward. [address] [facility] , [address], [place], [facility], [place]. tel:[phone] Referring Provider: Antonio Plummer, [address] [place] [address], [place], [facility]. tel:[phone] [facility], [address], [place], [place], [address], [place] tel:[phone] SEC [facility] No Information 200 8 [address] [facility] , [address], [place], [facility], [place]. tel:[phone] Referring Provider: Antonio Plummer, [address] [place] [address], [place], [facility]. tel:[phone] [facility], [address], [place], [place], [address], [place] tel:[phone] [facility] No Information 200 8 [address] [facility] , [address], [place], [facility], [place]. tel:[phone] Referring Provider: Antonio Plummer, [address] [place] [address], [place], [facility]. tel:[phone] Office/outpat ient Visit, [facility], [address], [place], [place], [address], [place] tel:[phone] [facility] [place] No Information Apr-2 2200 [address] Collinpaul. [address] [facility] [place] , [address], [place], [address], . tel:[phone] Referring Provider: Antonio Plummer, [address] [facility], [place], [facility]. tel:[phone] Family History Family Member Type Diagnosis Age At Onset No Information Payers Payer name Insurance type Covered republican ID Authoriza tion(s) No Information Social History Type Description Quantity Date Captured Comments Sex Female Smoking Status No Information Chief Complaint And Reason For Visit No Information Reason For Referral Reason For Referral No Information History Of Present Illness Encounter Date Complaint History Of Prese nt Illness No Information Functional Status Date Functional Assessmen t No Information Instructions Date Instruction Additional Infor mation No Information Assessments Type Assessment Date No Information Patient Care Teams Name Effective Dates (start - stop) Status Members No Information
--- OUTSIDE RECORDS SUMMARY | 2008-06-27 09:30 | XMS_ITS | Continuity of Care Document ---
Author Organization [facility] Address [address] [place] [address] [place] [address] Phone Care Team Providers Care Sliding Joint Maker Name Role Phone Thierno Dowd Unavailable Unavailable [...] Diagnoses Date Provider Providers Copied on Encounter [facility], [address] [place] [address] [address], [place], [place], [address], [place] tel:[phone] [facility] [place] No Information 8 [address] [facility] , [address], [place], [address], [place]. tel:[phone] [facility], [address] [place] [address] [address], [place], [place], [address], [place] tel:[phone] [facility] [place] No Information 8 [address] [facility] [address], [address], [place], [address], [place]. tel:[phone] [facility], [address] [place] [address] [address], [place], [place], [address], [place] tel:[phone] [facility] No Information 8 Doisy Edward. [address] [facility] , [address], [place], [facility], [place]. tel:[phone] [facility], [address], [place], [place], [address], [place] tel:[phone] SEC [facility] No Information 200 8 Doisy Edward. [address] [facility] , [address], [place], [facility], [place]. tel:[phone] Referring Provider: Antonio Plummer, [address] [place] [address], [place], [facility]. tel:[phone] [facility], [address], [place], [place], [address], [place] tel:[phone] [facility] No Information 200 8 Doisy Edward. [address] [facility] , [address], [place], [facility], [place]. tel:[phone] Referring Provider: Antonio Plummer, [address] [place] [address], [place], [facility]. tel:[phone] [facility], [address], [place], [place], [address], [place] tel:[phone] [facility] No Information 200 8 [address]. [address] [facility] , [address], [place], [facility], [place]. tel:[phone] Referring Provider: Antonio Plummer, [address] [place] [address], [place], [facility]. tel:[phone] Office/outpat ient Visit, [facility], [address], [place], [place], [address], [place] tel:[phone] [facility] [place] No Information Apr-2 2200 8 Neoge[address] Collinpaul. [address] [facility] [place] , [address], [place], [address], . tel:[phone] Referring Provider: Antonio Plummer, [address] [facility], [place], [facility]. tel:[phone] Family History Family Member Type Diagnosis Age At Onset No Information Payers Payer name Insurance type Covered democrat ID Authoriza tion(s) No Information Social History [...]
[2025-03-27] VITALS (24 sets, daily range): BP systolic 110–177; BP diastolic 45–105; PULSE 72–115; RESP 20–44; TEMP 36.2–39.5; O2SAT 91–98; BMI 40.4
--- NOTE | ~2025-03-27 | XR_ITS ---
EXAMINATION: XR chest 1V portable 03/29/2025 14:51 INDICATION: Shortness of breath/CHF TECHNIQUE:A single portable AP upright frontal image of the chest was obtained. COMPARISON: Comparison chest x-ray 03/27/2025 FINDINGS: Cardiomediastinal silhouette is mildly enlarged, unchanged. No pneumothorax. No pleural effusion. No free air in the diaphragm. Grossly stable moderate-sized patchy opacities scattered throughout the left lung with prominent in the left lower lung. Grossly stable moderate-sized opacities in the right lower lung. IMPRESSION: 1: Grossly stable moderate-sized patchy opacities scattered throughout the left lung with prominent in the left lower lung. Recommend follow-up to resolution. 2. Grossly stable moderate-sized opacities in the right lower lung. Recommend follow-up to resolution. Reviewed, dictated and finalized at location Q. IMPRESSION: 1: Grossly stable moderate-sized patchy opacities scattered throughout the lef t lung with prominent in the left lower lung. Recommend follow-up to resolution . 2. Grossly stable moderate-sized opacities in the right lower lung. Recommend follow-up to resolution.
--- NOTE | ~2025-03-27 | CT_ITS ---
EXAMINATION: CT diagnostic chest wo inderjit, 03/27/2025 17:40 CDT HISTORY: sob, pneumonia COMPARISON: No comparisons available. TECHNIQUE: CT scan of the chest was performed without IV contrast. One or more of the following dose reduction techniques were used: automated exposure control, adjustment of the mA and/or kV according to patient size, use of iterative reconstruction technique. FINDINGS: No significant coronary calcification is present ([id number]) LUNGS: No tracheomalacia. No bronchiectasis. Minimal emphysematous changes. No areas of bullous formation. Minimal pulmonary fibrotic changes, no honeycombing. Small to moderate left lower lobe infiltrate with trace effusion. No significant apical pleural scarring. Scattered 2 mm micronodules. HEART AND PERICARDIUM: Within normal limits. AORTA: Calcified atherosclerotic changes of the aorta. ADENOPATHY/MEDIASTINUM: None. LIMITED VIEWS OF THE ABDOMEN: Small hiatal hernia. Moderate pancreatic atrophy. OSSEOUS STRUCTURES: No sclerotic or lytic lesions. No acute rib fractures identified. OVERLYING SOFT TISSUES: Unremarkable. THYROID: The thyroid is unremarkable. IMPRESSION: Probable left lower lobe bronchopneumonia. Follow-up is suggested to assess resolution.. Reviewed, dictated and finalized at location A. IMPRESSION: Probable left lower lobe bronchopneumonia. Follow-up is suggested to assess res olution..
--- NOTE | ~2025-03-27 | XR_ITS ---
EXAMINATION: XR chest 1V portable 03/27/2025 16:51 INDICATION: Dyspnea. TECHNIQUE:A single portable AP upright frontal image of the chest was obtained. COMPARISON: Chest x-ray 02/19/2025 FINDINGS: Moderate-sized patchy opacities scattered throughout the left lung most prominent in the left lower lung. It addition, there are moderate sized patchy opacities in the right lower lung. No pneumothorax. No pleural effusion. No free air under the diaphragm. IMPRESSION: 1: Moderate-sized patchy opacities scattered throughout the left lung most prominent in the left lower lung. It addition, there are moderate sized patchy opacities in the right lower lung. Differential includes but is not limited to edema or pneumonia. Recommend follow-up to resolution. Consider a chest CT for further assessment. Reviewed, dictated and finalized at location Q. IMPRESSION: 1: Moderate-sized patchy opacities scattered throughout the left lung most pro minent in the left lower lung. It addition, there are moderate sized patchy opa cities in the right lower lung. Differential includes but is not limited to kathleen ma or pneumonia. Recommend follow-up to resolution. Consider a chest CT for fur ther assessment.
--- OUTSIDE RECORDS SUMMARY | 2025-03-27 16:25 | XMS_ITS | Clinical Summary ---
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
--- NOTE | 2025-03-27 16:40 | ECG_ITS ---
Test Date: 2025-03-27 16:37:53 Measurements Intervals [place] Rate: 108 P: 18 WA: 198 QRS: 44 QRSD: 89 T: 60 QT: 317 QTc: 425 Interpretive Statements SINUS TACHYCARDIA BORDERLINE ST-T WAVE ABNORMALITY- INF/LAT LEADS BASELINE ARTIFACT- I, II, III, AVR, AVL, AVF, V2-V3 ABNORMAL ECG Compared to ECG 02/19/2025 19:08:28 HEART RATE HAS INCREASED Electronically Signed On 03-27-2025 16:45:25 CDT by Paulie Brush D.O.
--- OUTSIDE RECORDS SUMMARY | 2025-03-27 16:47 | XMS_ITS | Clinical Summary ---
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
[2025-03-27 17:01] LABS: Hematocrit 42.9 % (37.0-47.0); Hemoglobin 13.8 g/dL (12.0-15.0); Mean Corpuscular HGB Conc 32.2 g/dl (32-36); Mean Corpuscular Hemoglobin 29.2 pg (26-34); Mean Corpuscular Volume 90.9 fl (80-100); Platelet Count Result 225 k/mm3 (150-375); Red Blood Count 4.72 M/mm3 (4.2-5.4); White Blood Count 16.5 K/mm3 (4.5-10.0)
[2025-03-27 17:12] LABS: INR 1.2; Prothrombin Time 14.9 Seconds (11.1-14.7)
[2025-03-27 17:13] LABS: Partial Thromboplastin Time 34.9 Seconds (22.3-36.8)
[2025-03-27 17:15] LABS: Alanine Aminotransferase 16 U/L (6-35); Albumin Level 4.3 g/dL (3.5-5.1); Alkaline Phosphatase 96 U/L (38-126); Anion Gap 12 mmol/L (4-12); Aspartate Amino Transferase 23 U/L (14-36); Bilirubin,Total 1.1 mg/dL (0.2-1.3); Blood Urea Nitrogen 35 mg/dL (7-17); Calcium 9.2 mg/dL (8.4-10.2); Carbon Dioxide 19 mmol/L (22-30); Chloride 104 mmol/L (98-107); Estimated Glomerular Filt Rate 33; Glucose 120 mg/dL (65-110); Potassium 4.2 mmol/L (3.4-5.0); Sodium 135 mmol/L (137-145); Total Protein 7.8 g/dL (6.3-8.2)
[2025-03-27 17:26] LABS: NT Pro B Type Natriuretic Pept 1460 pg/mL (19.9-100); Troponin I 0.032 ng/mL (0.000-0.034)
[2025-03-27 17:27] LABS: Band Neutrophils Percent 6 % (0-6); Neutrophils Absolute Manual 15.01 K/mm3 (1.3-6.7); Neutrophils Percent Manual 85 % (46-73); Total Cells Counted 100
[2025-03-27 17:28] LABS: Lymphocytes Absolute Manual 0.66 K/mm3 (1.1-4.5); Lymphocytes Percent Manual 4 % (18-44); Monocytes Absolute Manual 0.82 K/mm3 (0.1-0.90); Monocytes Percent Manual 5 % (3-9); Ovalocytes 1+; Schistocytes None Seen
[2025-03-27] MEDS: IPRATROPIUM 0.5 MG/ALBUTEROL SULFATE 2.5 MG AMPUL.NEB 3 ML INHALATION (17:29)
--- NOTE | 2025-03-27 17:30 | ED.SOB ---
HPI - SOB/Dyspnea General Chief Complaint: Shortness of Breath/Dyspnea Stated Complaint: sob Time Seen by Provider: 03/27/25 16:35 History of Present Illness HPI Narrative: This is a an 89-year-old female with history of hyperlipidemia, hypertension, hypothyroidism who presents to the ED for shortness of breath. Patient states that for the past few days, she has been having worsening shortness of breath. She has had an intermittent cough that is nonproductive. She has had intermittent left-sided chest pain. Denies fevers, chills. Patient does note that she was admitted a month ago with similar symptoms and was treated for pneumonia but they were not sure what the issue was. She has an appointment with a farm specialist tomorrow. She is a nonsmoker and never smoked. Related Data Home Medications ?Medication ?Instructions ?Recorded ?Confirmed ?Last Taken ?Type alprazolam 0.5 mg tablet 0.5 mg PO HS 03/02/24 02/19/25 02/18/25 History amlodipine 5 mg tablet 5 mg PO DAILY 03/02/24 02/19/25 02/19/25 History aspirin 81 mg capsule 81 mg PO DAILY 03/02/24 02/19/25 02/19/25 History escitalopram oxalate 5 mg tablet 5 mg PO DAILY 03/02/24 02/19/25 02/19/25 History indapamide 2.5 mg tablet 2.5 mg PO DAILY 03/02/24 02/19/25 02/19/25 History levothyroxine 125 mcg tablet 125 mcg PO DAILY 03/02/24 02/19/25 02/19/25 History losartan 100 mg tablet 100 mg PO DAILY 03/02/24 02/19/25 02/19/25 History meclizine 25 mg tablet 25 mg PO TID PRN Vertigo 03/02/24 02/19/25 Unknown History oxybutynin chloride 10 mg 10 mg PO HS 03/02/24 02/19/25 02/18/25 History tablet,extended release 24 hr potassium chloride 20 mEq 20 meq PO DAILY 03/02/24 02/19/25 02/19/25 History tablet,extended release simvastatin 20 mg tablet 20 mg PO DAILY 03/02/24 02/19/25 02/18/25 History gabapentin 100 mg capsule 100 mg PO Q8H 02/20/25 02/20/2525 08:00 History 100 mg Allergies Allergy/AdvReac Type Severity Reaction Status Date / Time levofloxacin (From Levaquin) Allergy Intermediate Rash Verified 02/19/25 14:38 Review of Systems Review of Systems: Gen.: Denies fevers or chills Eyes: Denies eye pain or visual change ENT: Denies congestion Respiratory: As per HPI CV: As per HPI GI: Denies abdominal pain nausea, emesis or diarrhea denies burning, urgency, frequency or hematuria Musculoskeletal: Denies back pain or muscle pain Neuro: Denies numbness, tingling, weakness or focal weakness Skin: Denies rash Except as documented, all other systems reviewed and negative [facility] Past Medical History Medical History Bladder prolapse Uterine prolapse Anxiety and depression Hypothyroidism Hyperlipidemia Essential hypertension Herniated lumbar intervertebral disc Surgical History Surgical History Hx of cholecystectomy History of ventral hernia repair History of resection of large bowel Due to diverticular bleed History of total left knee replacement Status post cataract extraction of both eyes with insertion of intraocular lens History of tonsillectomy and adenoidectomy Family History Family History Father Acute myocardial infarction Mother Cerebrovascular accident Sibling Heart disease Social History Social History Social History: She has been since 2019. She was for 63 years prior to her 's . She was a homemaker and raised 2 daughters. Code status: Full code Surrogate decision maker: Both daughters Smoking status: Never smoker Alcohol intake: never Substance use: never Substance use type: does not use Do You Feel Safe in your Home?: Yes Lack of Transportation: No Lack of Food: Never True Current Housing: I Have Housing Concerned About Future Housing: No Difficulty Paying Gas/Electric Bills: No Difficulty Paying for Meds: No Currently Unemployed: No Education: High School Diploma/GED Difficulty w/ Childcare or Family Care: No Spiritual care concerns: No Exam Narrative: APPEARANCE: No acute distress, nontoxic, resting in bed EYES: EOMI HEENT: Normocephalic, atraumatic, OMM RESPIRATORY: Tachypneic, using accessory muscles, wheezes worse to the left long, diminished breath sounds worse on the left CARDIOVASCULAR: Regular rate and rhythm without murmurs rubs or gallops. ABDOMINAL: Soft, nontender, nondistended, no rebound or guarding MUSCULOSKELETAl: Moves all extremities. No clubbing, cyanosis or edema. NEURO: Awake and alert. Following commands, speech normal, no focal deficits SKIN:: Warm, dry. No rashes lesions or abrasions PSYCHIATRIC: Normal affect/mood, Course Vital Signs Vital signs: Vital Signs Temperature 98.5 F 03/27/25 16:24 Pulse Rate 115 H 03/27/25 16:24 Respiratory Rate 25 H 03/27/25 16:24 Blood Pressure 177/78 H 03/27/25 16:24 Pulse Oximetry 94 03/27/25 16:24 Oxygen Delivery Room Air 03/27/25 16:24 Temperature 100.2 F H 03/27/25 18:41 Pulse Rate 99 03/27/25 19:21 Respiratory Rate 26 H 03/27/25 19:21 Blood Pressure 110/79 03/27/25 19:21 Pulse Oximetry 92 03/27/25 19:21 Oxygen Delivery Nasal Cannula 03/27/25 18:36 Oxygen Flow Rate 2 03/27/25 18:36 MDM - SOB/Dyspnea MDM Narrative Medical decision making narrative: 81-year-old female that presents to the ED for shortness of breath and chest pain. On initial evaluation, patient was tachypneic and using accessory muscles with audible wheezing. She had wheezes worse in the left lung. She was given DuoNeb and Solu-Medrol. Chest x-ray did show left-sided pneumonia. Patient was started on Rocephin and doxycycline. She did have improvement of symptoms treatment. CT chest was obtained which showed bronchopneumonia. Patient will require admission for acute hypoxic respiratory failure due to community-acquired pneumonia. Patient was agreeable to this plan. Case was discussed with hospitalist who will admit patient. Differential Diagnosis Differential diagnosis: Likely acute exacerbation of chronic obstructive airways disease, congestive heart failure, community acquired pneumonia and asthma with exacerbation Medical Records Attestation: I reviewed the patient's medical records. Lab Data Attestation: I reviewed the patient's lab results. 03/27/25 16:55 08/26/25 16:55 Labs: Lab Results 03/27/25 Range/Units 16:55 WBC 16.5 H (4.5-10.0) K/mm3 RBC 4.72 (4.2-5.4) M/mm3 Hgb 13.8 (12.0-15.0) g/dL Hct 42.9 (37.0-47.0) % MCV 90.9 (80-100) fl MCH 29.2 (26-34) pg MCHC 32.2 (32-36) g/dl RDW 13.6 (11.5-14.5) % Plt Count 225 (150-375) k/mm3 MPV 10.0 (7.4-10.4) fl Immature Gran % (Auto) Not Reportable Neut % (Auto) Not Reportable Lymph % (Auto) Not Reportable Callahan % (Auto) Not Reportable Eos % (Auto) Not Reportable Baso % (Auto) Not Reportable Lymph # (Auto) Not Reportable Callahan # (Auto) Not Reportable Eos # (Auto) Not Reportable Baso # (Auto) Not Reportable Abs Immat Gran (auto) Not Reportable Absolute Neuts (auto) Not Reportable Absolute Nucleated RBC Not Reportable Total Counted 100 Neutrophils % (Manual) 85 H (46-73) % Band Neutrophils % 6 (0-6) % Lymphocytes % (Manual) 4 L (18-44) % Monocytes % (Manual) 5 (3-9) % Nucleated RBC % Not Reportable Abs Neuts (Manual) 15.01 H (1.3-6.7) K/mm3 Abs Lymphs (Manual) 0.66 L (1.1-4.5) K/mm3 Abs Monocytes (Manual) 0.82 (0.1-0.90) K/mm3 Platelet Estimate Adequate (Adequate) Ovalocytes 1+ Schistocytes None seen PT 14.9 H (11.1-14.7) Seconds INR 1.2 APTT 34.9 (22.3-36.8) Seconds Sodium 135 L (137-145) mmol/L Potassium 4.2 (3.4-5.0) mmol/L Chloride 104 (98-107) mmol/L Carbon Dioxide 19 L (22-30) mmol/L Anion Gap 12 (4-12) mmol/L BUN 35 H (7-17) mg/dL Creatinine 1.48 H (0.7-1.0) mg/dL Estim Creat Clear Calc Not Reportable Estimated GFR 33 L (59 - ) Glucose 120 H (65-110) mg/dL Calcium 9.2 (8.4-10.2) mg/dL Total Bilirubin 1.1 (0.2-1.3) mg/dL AST 23 (14-36) U/L ALT 16 (6-35) U/L Alkaline Phosphatase 96 (38-126) U/L Troponin I 0.032 (0.000-0.034) ng/mL NT-Pro-B Natriuret Pep 1460 H (19.9-100) pg/mL Total Protein 7.8 (6.3-8.2) g/dL Albumin 4.3 (3.5-5.1) g/dL Imaging Data Radiologist's impression: Impressions Chest X-Ray 03/27/25 16:57 IMPRESSION: 1: Moderate-sized patchy opacities scattered throughout the left lung most prominent in the left lower lung. It addition, there are moderate sized patchy opacities in the right lower lung. Differential includes but is not limited to edema or pneumonia. Recommend follow-up to resolution. Consider a chest CT for further assessment. Chest CT 03/27/25 17:57 IMPRESSION: Probable left lower lobe bronchopneumonia. Follow-up is suggested to assess resolution.. ECG Data EKG #1: Attestation: I personally reviewed and interpreted this ECG as follows: ECG completion date: 03/27/25 ECG completion time: 16:26 Interpretation: Sinus tachycardia rate 108, normal axis, normal intervals, no acute ST or T-wave changes Discharge Plan Discharge Clinical Impression: Acute hypoxemic respiratory failure CAP (community acquired pneumonia) Qualifiers: Laterality: left Lung location: unspecified part of lung Qualified Code(s): J18.9 - Pneumonia, unspecified organism Patient Disposition: Still a Patient Condition: Stable Patient Language: Scottish Prescriptions: No Action oxybutynin chloride 10 mg Tablet Extended Release 24hr 10 mg PO HS indapamide 2.5 mg Tablet 2.5 mg PO DAILY amlodipine 5 mg Tablet 5 mg PO DAILY alprazolam 0.5 mg Tablet 0.5 mg PO HS meclizine 25 mg Tablet 25 mg PO TID PRN (Reason: Vertigo) simvastatin 20 mg Tablet 20 mg PO DAILY levothyroxine 125 mcg Tablet 125 mcg PO DAILY losartan 100 mg Tablet 100 mg PO DAILY escitalopram oxalate 5 mg Tablet 5 mg PO DAILY potassium chloride 20 mEq Tablet Extended Release 20 meq PO DAILY aspirin 81 mg Capsule 81 mg PO DAILY gabapentin 100 mg capsule 100 mg PO Q8H prednisone 10 mg tablet 10 mg PO DAILY Qty: 63 0RF Rx Instructions: 6Tx3d, 5Tx3d, 4Tx3d, 3Tx3d, 2Tx3d, 1Tx3d albuterol sulfate [Ventolin HFA] 90 mcg/actuation HFA aerosol inhaler 1 inh inhalation QID PRN (Reason: shortness of breath or wheezing) Qty: 8.5 0RF ipratropium-albuterol 0.5 mg-3 mg(2.5 mg base)/3 mL solution for nebulization 3 ml inhalation QID PRN (Reason: shortness of breath or wheezing) Qty: 90 0RF (DME) nebulizer and compressor Device See Rx Instructions .ROUTE .MEDSUPPLY Qty: 1 0RF Rx Instructions: As directed Follow-up/Referrals: Kalia,Chris Aguiar MD [Primary Care Provider]
[2025-03-27] MEDS: cefTRIAXone 2 GM in SODIUM CHLORIDE 0.9% IV 100 ML 200 ML IVPB (18:14)
--- NOTE | 2025-03-27 18:50 | PM.IMHP ---
H&P: HPI History of Present Illness Date/Time: 03/27/25 18:50 Chief Complaint: Shortness of Breath Narrative: 89 y/o F with PMH of hypothyroidism, hyperlipidemia, pulmonary embolism, anxiety, and hypertension presents here with shortness of breath. The patient presents here from home for further evaluation of shortness of breath on 03/27. She reports onset of shortness of breath this past Wednesday, 03/25. It is accompanied by a dry cough that she describes as croup-like. Additionally reporting fever, chills, body aches, and chest pain. She reports the chest pain has been occurring at rest and worsens with a cough. She denies any associated nausea, vomiting, and diarrhea, diaphoresis. Of note, she was recently admitted for similar symptoms from 02/20 - 02/21. At that time she had reported shortness of breath that had not improved with a Z-Jose Angel and Tessalon Perles. She had been wheezing on and off for 6 months to a year. At that time she a pulmonary embolism was ruled out, she has a history of a pulmonary embolism and completed treatment this past September. Patient's symptoms at that time were attributed to a viral illness and she improved with nebulizers and methylprednisolone. She was later referred to a plant controls specialist, she had outpatient follow-up with them tomorrow on 03/28. She denies a previous history of smoking. Initial VS at presentation: 98.5? F, HR 115, R 25, 94% on room air. Now on 4 L nasal cannula and satting anywhere between 93 and 96%, work of breathing improved. ED workup showed: WBC 16.5, no anemia, INR 1.2, creatinine 1.48 and GFR 33, glucose 120, lactic 1.2, initial troponin 0.032, and BNP 1460. Review of Systems Review of Systems: All systems reviewed & are unremarkable except as noted in HPI and below PMFSH Past Medical History Medical History Pulmonary embolism Bladder prolapse Uterine prolapse Anxiety and depression Hypothyroidism Hyperlipidemia Essential hypertension Herniated lumbar intervertebral disc Surgical History Surgical History Hx of cholecystectomy History of ventral hernia repair History of resection of large bowel Due to diverticular bleed History of total left knee replacement Status post cataract extraction of both eyes with insertion of intraocular lens History of tonsillectomy and adenoidectomy Family History Family History Father Acute myocardial infarction Mother Cerebrovascular accident Sibling Heart disease Social History Social History Social History: She has been since 2019. She was for 63 years prior to her 's . She was a homemaker and raised 2 daughters. Code status: Full code Surrogate decision maker: Both daughters Smoking status: Never smoker Second hand tobacco smoke exposure: No Alcohol intake: never Substance use: never Substance use type: does not use Do You Feel Safe in your Home?: Yes Lack of Transportation: No Lack of Food: Never True Current Housing: I Do Not Have Housing Concerned About Future Housing: No Difficulty Paying Gas/Electric Bills: No Difficulty Paying for Meds: No Currently Unemployed: No Education: High School Diploma/GED Difficulty w/ Childcare or Family Care: No Spiritual care concerns: No Meds Home Medications and Allergies Home Medications ?Medication ?Instructions ?Recorded ?Confirmed ?Type alprazolam 0.5 mg tablet 0.5 mg PO HS 03/02/24 03/27/25 History amlodipine 5 mg tablet 5 mg PO DAILY 03/02/24 03/27/25 History aspirin 81 mg capsule 81 mg PO DAILY 03/02/24 03/27/25 History escitalopram oxalate 5 mg tablet 5 mg PO DAILY 03/02/24 03/27/25 History indapamide 2.5 mg tablet 2.5 mg PO DAILY 03/02/24 03/27/25 History levothyroxine 125 mcg tablet 125 mcg PO DAILY 03/02/24 03/27/25 History losartan 100 mg tablet 100 mg PO DAILY 03/02/24 03/27/25 History meclizine 25 mg tablet 25 mg PO TID PRN Vertigo 03/02/24 03/27/25 History oxybutynin chloride 10 mg 10 mg PO HS 03/02/24 03/27/25 History tablet,extended release 24 hr potassium chloride 20 mEq 20 meq PO DAILY 03/02/24 03/27/25 History tablet,extended release simvastatin 20 mg tablet 20 mg PO DAILY 03/02/24 03/27/25 History gabapentin 100 mg capsule 100 mg PO Q8H 02/20/25 03/27/25 History albuterol sulfate 90 mcg/actuation 1 inh inhalation QID PRN shortness 02/21/25 03/27/25 Rx aerosol inhaler (Ventolin HFA) of breath or wheezing #8.5 grams ipratropium 0.5 mg-albuterol 3 mg 3 ml inhalation QID PRN shortness 02/21/25 03/27/25 Rx (2.5 mg base)/3 mL nebulization of breath or wheezing #90 mL soln nebulizer and compressor #1 ea 02/21/25 03/27/25 Rx Allergies Allergy/AdvReac Type Severity Reaction Status Date / Time levofloxacin (From Levaquin) Allergy Intermediate Rash Verified 02/19/25 14:38 Vital Signs Vital Signs - 24 hr 03/27/25 16:24 03/27/25 16:38 03/27/25 16:45 Temperature 98.5 F Pulse Rate 115 H 108 H 112 H Respiratory Rate 25 H 31 H 40 H Blood Pressure 177/78 H Pulse Oximetry 94 97 Oxygen Delivery Room Air Oxygen Flow Rate 03/27/25 17:00 03/27/25 17:15 03/27/25 17:29 Temperature Pulse Rate 110 H 110 H 108 H Respiratory Rate 34 H 34 H 23 H Blood Pressure Pulse Oximetry 95 91 Oxygen Delivery Oxygen Flow Rate 03/27/25 17:30 03/27/25 17:54 03/27/25 17:56 Temperature Pulse Rate 108 H 108 H Respiratory Rate 31 H 44 H Blood Pressure 170/52 H Pulse Oximetry 93 91 91 Oxygen Delivery Oxygen Flow Rate 03/27/25 18:00 03/27/25 18:02 03/27/25 18:15 Temperature Pulse Rate 105 H 108 H 107 H Respiratory Rate 36 H 29 H 28 H Blood Pressure 151/52 H Pulse Oximetry 92 95 95 Oxygen Delivery Oxygen Flow Rate 03/27/25 18:17 03/27/25 18:30 03/27/25 18:31 Temperature Pulse Rate 105 H 102 H 99 Respiratory Rate 37 H 33 H 39 H Blood Pressure 150/57 H 146/105 H Pulse Oximetry 95 94 95 Oxygen Delivery Oxygen Flow Rate 03/27/25 18:36 03/27/25 18:36 03/27/25 18:41 Temperature 100.2 F H Pulse Rate 105 H 102 H Respiratory Rate 22 H 22 H Blood Pressure 146/105 H 146/105 H Pulse Oximetry 94 94 94 Oxygen Delivery Nasal Cannula Nasal Cannula Oxygen Flow Rate 2 2 Exam Const: General: comfortable and no acute distress Other: , female, elderly, ill-appearing, obese body habitus HENMT: Face/Nose/Sinus: Normal nares present Mouth: Yes moist mucous membranes Eyes: General: appearance normal, both eyes and all related structures Sclera: sclerae normal Pupils: Equal, round and reactive pupils present EOM: EOMs intact bilaterally Resp: Other: Mild tachypnea noted, tolerating nasal cannula well. Bibasilar crackles, right greater than left. Scattered wheezing, faint. Cardio: Rate: tachycardic (Mild, 115) Rhythm: regular rhythm Other: S1-S2 present without murmur, rub, ectopy GI: Other: Abdomen soft, nondistended, nontender. Normoactive bowel sounds in all quadrants. Skin: General skin exam: normal color and no rashes or lesions noted Wounds: no wounds Neuro: Speech: normal speech Motor exam (neuro): 5/5 motor strength present throughout Sensory Exam: normal sensation Other: A&O x4 Extrem: General: normal to inspection Psych: Mental Status: mental status grossly normal Affect: normal affect Other: Good insight and judgment, very pleasant H&P: Results Labs Labs: Short CBC 03/27/25 Range/Units 16:55 WBC 16.5 H (4.5-10.0) K/mm3 Hgb 13.8 (12.0-15.0) g/dL Hct 42.9 (37.0-47.0) % Plt Count 225 (150-375) k/mm3 BMP 03/27/25 16:55 Sodium 135 L Potassium 4.2 Chloride 104 Carbon Dioxide 19 L BUN 35 H Creatinine 1.48 H Glucose 120 H Calcium 9.2 Cardiac Enzymes 03/27/25 Range/Units 16:55 Troponin I 0.032 (0.000-0.034) ng/mL Liver Function 03/27/25 Range/Units 16:55 Total Bilirubin 1.1 (0.2-1.3) mg/dL AST 23 (14-36) U/L ALT 16 (6-35) U/L Alkaline Phosphatase 96 (38-126) U/L Albumin 4.3 (3.5-5.1) g/dL Assessment and Plan Assessment and plan (1) Sepsis: Qualifiers: Sepsis acute organ dysfunction status: without acute organ dysfunction Sepsis type: sepsis due to unspecified organism Qualified Code(s): A41.9 - Sepsis, unspecified organism Code(s): A41.9 - Sepsis, unspecified organism Status: Acute Assessment and Plan: - meets SIRS criteria: HR >90, RR >20, WBC greater than 12. Now has fever of 100.2? F. Placed on nasal cannula for comfort, no hypoxia documented. - check lactic, if elevated will add procalcitonin -> lactic 1.2 - 30 mL/kg = 3.6 L, will start with 2L bolus and assess toleration - suspected source: Pneumonia - started on ceftriaxone and doxycycline - blood cultures drawn on 03/27, follow - check UA - monitor hemodynamic stability (2) Pneumonia: Qualifiers: Laterality: bilateral Lung location: unspecified part of lung Pneumonia type: due to unspecified organism Qualified Code(s): J18.9 - Pneumonia, unspecified organism Code(s): J18.9 - Pneumonia, unspecified organism Status: Acute Assessment and Plan: - CXR: Moderate-sized patchy opacities scattered throughout the left lung most prominent in the left lower lung. It addition, there are moderate sized patchy opacities in the right lower lung. Differential includes but is not limited to edema or pneumonia. Recommend follow-up to resolution. Consider a chest CT for further assessment. - chest CT: Probable left lower lobe bronchopneumonia. Follow-up is suggested to assess resolution.. - risk factors and complicating factors: - started on CAP tx: Ceftriaxone and doxycycline on 03/27 - check MRSA PCR, viral PCR, and sputum culture - supportive care: Mucinex, Tessalon Perles, DuoNebs, Tylenol - currently on supplemental O2 for comfort, no hypoxia noted (3) Hypothyroidism: Qualifiers: Hypothyroidism type: unspecified Qualified Code(s): E03.9 - Hypothyroidism, unspecified Code(s): E03.9 - Hypothyroidism, unspecified Status: Acute Assessment and Plan: - continue home Synthroid (4) Essential hypertension: Code(s): I10 - Essential (primary) hypertension Status: Acute Assessment and Plan: - chronic, currently 146/108 - continue home medications: Amlodipine, indapamide, losartan - monitor Plan Mild bump in creatinine noted, previously 1.08 on 02/20/2025. Creatinine 1.48 upon admission. Giving IV fluids. Monitor. Diet: Heart healthy GI Prophylaxis: N/a DVT Prophylaxis: Lovenox IV fluids: 2L bolus Lines/Tubes: Peripheral IV Code Status: Full code Quality VTE Prophylaxis VTE prophylaxis: pharmacologic ordered Hospitalist MIPS Advance Care Plan I have confirmed that the patient's Advanced Care Plan is present, code status is documented, or surrogate decision maker is listed in patient medical record.: Yes Medication Reconciliation I have utilized all available resources to obtain, update and review the patients current medications (includes all prescriptions, OTC, herbals, cannabis, and nutritional supplements).: Yes
[2025-03-27] MEDS: DOXYCYCLINE IV 100 MG in SODIUM CHLORIDE 0.9% IV 100 ML IVPB (19:14)
[2025-03-27] MEDS: LACTATED RINGERS 1,000 ML 999 ML IV CONT (19:14)
[2025-03-27] MEDS: ACETAMINOPHEN 500 MG TABLET 1000 MG PO (20:12)
--- NOTE | 2025-03-27 21:11 | ADMGEN ---
This patient, Annie Davidson, was admitted to Medical Room 341-01. Patient/family oriented to hospital policies and general routines including ID bracelet, bed and alarms, visiting hours, pain management, procedures, bathroom and other care routines, personal items, smoking policy, room service/diet, and visiting hours. Information on how to activate the Rapid Response Team has been discussed. Patient/Family are encouraged to report perceived risks to care and to ask questions if they do not understand what they are told or what they should do.
[2025-03-27] MEDS: guaiFENesin 12 HR 600 MG TABCR PO (21:45)
[2025-03-27] MEDS: GABAPENTIN 100 MG CAPSULE PO (22:56)
[2025-03-28] VITALS (16 sets, daily range): BP systolic 122–138; BP diastolic 42–60; PULSE 59–76; RESP 18–24; TEMP 36.2–36.9; O2SAT 94–97
[2025-03-28] MEDS: DOXYCYCLINE IV 100 MG in SODIUM CHLORIDE 0.9% IV 100 ML IVPB ×2 (05:49→18:18)
[2025-03-28] MEDS: GABAPENTIN 100 MG CAPSULE PO ×3 (05:51→20:39)
[2025-03-28] MEDS: LEVOTHYROXINE SODIUM 125 MCG TABLET PO (05:51)
[2025-03-28 06:34] LABS: Hematocrit 36.1 % (37.0-47.0); Hemoglobin 11.7 g/dL (12.0-15.0); Immature Granulocyte Percent A 1.1 % (0-0.5); Lymphocytes Absolute Auto 1.02 K/mm3 (0.9-3.2); Mean Corpuscular HGB Conc 32.4 g/dl (32-36); Mean Corpuscular Hemoglobin 29.3 pg (26-34); Mean Corpuscular Volume 90.3 fl (80-100); Nucleated Red Blood Cells Absolute Auto 0.000 K/mm3 (0.0-0.012); Nucleated Red Blood Cells Perc 0.0 % (0.0-0.2); Platelet Count Result 183 k/mm3 (150-375); Red Blood Count 4.00 M/mm3 (4.2-5.4); White Blood Count 22.0 K/mm3 (4.5-10.0)
[2025-03-28 06:41] LABS: Influenza A QL RT-PCR Negative (Negative); Influenza B QL RT-PCR Negative (Negative); RSV RNA, RT-PCR Negative (Negative); SARS-CoV-2 RNA PCR Negative (Negative)
[2025-03-28 07:01] LABS: Anion Gap 9 mmol/L (4-12); Blood Urea Nitrogen 42 mg/dL (7-17); Calcium 8.6 mg/dL (8.4-10.2); Carbon Dioxide 17 mmol/L (22-30); Chloride 104 mmol/L (98-107); Estimated CRCL calculation 33 ml/min; Estimated Glomerular Filt Rate 34; Glucose 203 mg/dL (65-110); Potassium 3.9 mmol/L (3.4-5.0); Sodium 130 mmol/L (137-145)
[2025-03-28 07:15] LABS: MRSA (PCR) NOT DETECTED (NOT DETECTE)
[2025-03-28] MEDS: ASPIRIN 81 MG ENTERIC TABLET PO (09:21)
[2025-03-28] MEDS: INDAPAMIDE 2.5 MG TABLET PO (09:21)
[2025-03-28] MEDS: POTASSIUM CHLORIDE 20 MEQ ER TABLET PO (09:21)
[2025-03-28] MEDS: BENZONATATE 100 MG CAPSULE PO ×3 (09:21→17:30)
[2025-03-28] MEDS: guaiFENesin 12 HR 600 MG TABCR PO ×2 (09:21→20:39)
[2025-03-28] MEDS: LOSARTAN POTASSIUM 100 MG TABLET PO (09:21)
[2025-03-28] MEDS: SIMVASTATIN 20 MG TABLET PO (09:21)
[2025-03-28] MEDS: ESCITALOPRAM OXALATE 5 MG TABLET PO (09:21)
[2025-03-28] MEDS: ENOXAPARIN 40 MG/0.4 ML SYRINGE SUB-Q (09:25)
[2025-03-28 10:31] LABS: Hemoglobin A1C 5.9 % (<5.7)
[2025-03-28 11:10] LABS: Add Urine Microscopic? YES; Appearance Urine Cloudy (Clear); Glucose Urine UA Negative (Negative); Leukocyte Esterase Ur 1+ LEU/UL (Negative); Need Manual Microscopic Reviewed; Nitrate Urine Negative (Negative); Specific Grav Ur 1.022 (1.001-1.035)
--- NOTE | 2025-03-28 12:39 | P.PNIM_ITS ---
Progress Note: A&P Assessment and Plan (1) Sepsis: Qualifiers: Sepsis acute organ dysfunction status: without acute organ dysfunction Sepsis type: sepsis due to unspecified organism Qualified Code(s): A41.9 - S epsis, unspecified organism Code(s): A41.9 - Sepsis, unspecified organism Status: Acute Assessment and Plan: meets SIRS criteria: HR >90, RR >20, WBC greater than 12. Lactic 1.2 Now has fever of 100.2? F. was given 3.6 L in ED. Likely secondary to Pneumonia * ceftriaxone and doxycycline * blood cultures pending NGTD Q24hrs * monitor hemodynamic stability (2) Pneumonia: Qualifiers: Laterality: bilateral Lung location: unspecified part of lung Pneumonia type: due to unspecified organism Qualified Code(s): J18.9 - Pneumonia, unspecified organism Code(s): J18.9 - Pneumonia, unspecified organism Status: Acute Assessment and Plan: CXR: Moderate-sized patchy opacities scattered throughout the left lung most prominent in the left lower lung. It addition, there are moderate sized patchy opacities in the right lower lung. Differential includes but is not limited to edema or pneumonia. Recommend follow-up to resolution. Consider a chest CT for further assessment. Chest CT: Probable left lower lobe bronchopneumonia. Follow- up is suggested to assess resolution. Viral panel negative, MRSA negative. WBC with uptrend but likely secondary to receiving methylprednisone. * Ceftriaxone and doxycycline * Blood cultures pending * sputum culture pending * Mucinex * Tessalon Perles * DuoNebs * Tylenol * currently on supplemental O2 for comfort, no hypoxia noted * Incentive spirometer (3) Hypothyroidism: Qualifiers: Hypothyroidism type: unspecified Qualified Code(s): E03.9 - Hypothyroidism, unspecified Code(s): E03.9 - Hypothyroidism, unspecified Status: Acute Assessment and Plan: * continue home Synthroid (4) Essential hypertension: Code(s): I10 - Essential (primary) hypertension Status: Acute Assessment and Plan: * continue home medications: Amlodipine, indapamide, losartan * Monitor per unit protocol (5) Hyperglycemia: Code(s): R73.9 - Hyperglycemia, unspecified Status: Acute Assessment and Plan: Patient with glucose as high as 203 no history of diabetes * A1c 5.9 * Patient can follow-up with her primary outpatient for 3-6 month A1c check (6) Acute kidney injury: Code(s): N17.9 - Acute kidney failure, unspecified Status: Acute Assessment and Plan: No previous HX of CKD likely secondary to dehydration but patient with poor urinary output. * Bladder scan PRN * Gentle IV hydration. * Avoid nephrotoxic drugs. * Monitor antihypertensive drug therapy. * Avoid NSAIDs. * Routine CMP monitoring GFR. * Monitor electrolytes especially potassium. Plan Code status: Full code per patient DVT prophylaxis: Lovenox Stress ulcer prophylaxis: NA PT/OT notes: PT/OT pending Disposition: Patient was admitted to the medical unit for further evaluation and treatment pneumonia with sepsis will continue with current treatment it PT/OT for evaluation for possible discharge needs. Time Spent With Patient Time with patient: 15 - 25 minutes Subjective Date/time seen: 03/28/25 12:39 Interval history: Patient is an 81-year-old female admitted to the medical unit for further evaluation treatment of acute respiratory with hypoxia secondary to sepsis with pneumonia. 03/28/2025: Assumed Care Patient with productive cough reports SOB is worse with exertion or any type of activity. Audible wheezing. Patient denied any chest pain, nausea,vomiting dizziness, or fever but did not worse intermittent chills Review of Systems Review of Systems: All systems reviewed & are unremarkable except as noted in HPI and below Exam Const: General: comfortable and no acute distress Other: , female, elderly, ill-appearing, obese body habitus HENMT: Face/Nose/Sinus: Normal nares present Mouth: Yes moist mucous membranes Eyes: General: appearance normal, both eyes and all related structures Sclera: sclerae normal Pupils: Equal, round and reactive pupils present EOM: EOMs intact bilaterally Resp: Auscultation: wheezes (moderate) scattered wheezes and diminished lung sounds bilateral throughout Cardio: Rate: tachycardic (Mild, 115) Rhythm: regular rhythm Other: S1-S2 present without murmur, rub, ectopy GI: Other: Abdomen soft, nondistended, nontender. Normoactive bowel sounds in all quadrants. Skin: General skin exam: normal color and no rashes or lesions noted Wounds: no wounds Neuro: Cranial nerves: Yes Equal, round and reactive pupils present Speech: normal speech Motor exam (neuro): 5/5 motor strength present throughout Sensory Exam: normal sensation Other: A&O x4 Extrem: General: normal to inspection Psych: Mental Status: mental status grossly normal Affect: normal affect Other: Good insight and judgment, very pleasant Objective Data Vital Signs Vital Signs: Vital Signs - 24 hr 03/27/25 16:24 03/27/25 16:38 03/27/25 16:45 Temperature 98.5 F Pulse Rate 115 H 108 H 112 H Respiratory Rate 25 H 31 H 40 H Blood Pressure 177/78 H Pulse Oximetry 94 97 Oxygen Delivery Room Air Oxygen Flow Rate Fraction of Inspired Oxygen 03/27/25 17:00 03/27/25 17:15 03/27/25 17:29 Temperature Pulse Rate 110 H 110 H 108 H Respiratory Rate 34 H 34 H 23 H Blood Pressure Pulse Oximetry 95 91 Oxygen Delivery Oxygen Flow Rate Fraction of Inspired Oxygen 03/27/25 17:30 03/27/25 17:54 03/27/25 17:56 Temperature Pulse Rate 108 H 108 H Respiratory Rate 31 H 44 H Blood Pressure 170/52 H Pulse Oximetry 93 91 91 Oxygen Delivery Oxygen Flow Rate Fraction of Inspired Oxygen 03/27/25 18:00 03/27/25 18:02 03/27/25 18:15 Temperature Pulse Rate 105 H 108 H 107 H Respiratory Rate 36 H 29 H 28 H Blood Pressure 151/52 H Pulse Oximetry 92 95 95 Oxygen Delivery Oxygen Flow Rate Fraction of Inspired Oxygen 03/27/25 18:17 03/27/25 18:30 03/27/25 18:31 Temperature Pulse Rate 105 H 102 H 99 Respiratory Rate 37 H 33 H 39 H Blood Pressure 150/57 H 146/105 H Pulse Oximetry 95 94 95 Oxygen Delivery Oxygen Flow Rate Fraction of Inspired Oxygen 03/27/25 18:36 03/27/25 18:36 03/27/25 18:41 Temperature 100.2 F H Pulse Rate 105 H 102 H Respiratory Rate 22 H 22 H Blood Pressure 146/105 H 146/105 H Pulse Oximetry 94 94 94 Oxygen Delivery Nasal Cannula Nasal Cannula Oxygen Flow Rate 2 2 Fraction of Inspired Oxygen 03/27/25 19:21 03/27/25 20:12 03/27/25 20:13 Temperature 103.1 F H 103.1 F H Pulse Rate 99 97 Respiratory Rate 26 H 22 H Blood Pressure 110/79 150/57 H Pulse Oximetry 92 98 Oxygen Delivery Oxygen Flow Rate Fraction of Inspired Oxygen 03/27/25 21:03 03/27/25 21:12 03/27/25 21:49 Temperature 97.6 F 97.6 F Pulse Rate 93 85 Respiratory Rate 20 20 Blood Pressure 129/45 L Pulse Oximetry 93 96 Oxygen Delivery Nasal Cannula Oxygen Flow Rate 4 Fraction of Inspired Oxygen 36 03/27/25 23:52 03/28/25 00:00 03/28/25 01:38 Temperature 97.1 F L Pulse Rate 72 70 Respiratory Rate 20 Blood Pressure 124/53 L Pulse Oximetry 95 94 Oxygen Delivery Nasal Cannula Oxygen Flow Rate 4 Fraction of Inspired Oxygen 03/28/25 04:00 03/28/25 04:00 03/28/25 08:00 Temperature 97.3 F L Pulse Rate 59 L 62 65 Respiratory Rate 20 18 Blood Pressure 124/60 Pulse Oximetry 95 97 Oxygen Delivery Nasal Cannula Oxygen Flow Rate 4 Fraction of Inspired Oxygen 03/28/25 08:00 03/28/25 10:36 Temperature 98.4 F Pulse Rate 60 65 Respiratory Rate 20 Blood Pressure 122/52 L Pulse Oximetry 95 Oxygen Delivery Oxygen Flow Rate Fraction of Inspired Oxygen Intake/Output Intake/Output: Intake & Output 03/25/25 03/26/25 03/27/25 03/28/25 23:59 23:59 23:59 23:59 Intake Total 100 630 Balance 100 630 Meds/Results Medications: Active Medications Generic Name Dose Route Start Last Admin Trade Name Freq PRN Reason Stop Dose Admin Acetaminophen 650 mg 03/27/25 18:52 Acetaminophen 325 Mg Tablet PO Q4H PRN Mild Pain (1-3) or Fever Hydrocodone Bitart/Acetaminophen 1 tab 03/27/25 18:52 Hydrocodone/Acetaminophen (*Crx) 5-325 Mg Tablet PO Q4H PRN Moderate Pain (4-6) Albuterol/Ipratropium 3 ml 03/28/25 14:00 Ipratropium 0.5 Mg/Albuterol Sulfate 2.5 Mg Ampul.Neb 3 Ml INHALATION Q6HRT GAUTAM Alprazolam 0.5 mg 03/28/25 21:00 Alprazolam (*Crx) 0.5 Mg Tablet PO HS GAUTAM Amlodipine Besylate 5 mg 03/28/25 09:00 03/28/25 09:21 Amlodipine Besylate 5 Mg Tablet PO 5 mg DAILY GAUTAM Administration Aspirin 81 mg 03/28/25 09:00 03/28/25 09:21 Aspirin 81 Mg Enteric Tablet PO 81 mg QAM GAUTAM Administration Benzonatate 100 mg 03/28/25 09:00 03/28/25 09:21 Benzonatate 100 Mg Capsule PO 100 mg TID GAUTAM Administration Bisacodyl 10 mg 03/27/25 18:52 Bisacodyl 10 Mg Suppository RECTAL ONCE PRN Constipation Enoxaparin Sodium 40 mg 03/28/25 09:00 03/28/25 09:25 Enoxaparin 40 Mg/0.4 Ml Syringe SUB-Q 40 mg DAILY GAUTAM Administration Escitalopram Oxalate 5 mg 03/28/25 09:00 03/28/25 09:21 Escitalopram Oxalate 5 Mg Tablet PO 5 mg DAILY GAUTAM Administration Gabapentin 100 mg 03/27/25 22:40 03/28/25 05:51 Gabapentin 100 Mg Capsule PO 100 mg Q8HR GAUTAM Administration Guaifenesin 600 mg 03/27/25 21:00 03/28/25 09:21 Guaifenesin 12 Hr 600 Mg Tabcr PO 600 mg Q12HR GAUTAM Administration Ceftriaxone Sodium 1 gm/ 50 mls @ 100 mls/hr 03/28/25 18:00 Sodium Chloride IVPB Q24H GAUTAM Doxycycline Hyclate 100 mg/ 100 mls @ 100 mls/hr 03/28/25 07:00 03/28/25 05:49 Sodium Chloride IVPB 04/01/25 19:59 100 mls/hr Q12H GAUTAM Administration Indapamide 2.5 mg 03/28/25 09:00 03/28/25 09:21 Indapamide 2.5 Mg Tablet PO 2.5 mg DAILY GAUTAM Administration Levothyroxine Sodium 125 mcg 03/28/25 06:30 03/28/25 05:51 Levothyroxine Sodium 125 Mcg Tablet PO 125 mcg DAILY@0630 GAUTAM Administration Losartan Potassium 100 mg 03/28/25 09:00 03/28/25 09:21 Losartan Potassium 100 Mg Tablet PO 100 mg DAILY GAUTAM Administration Meclizine HCl 25 mg 03/27/25 22:37 Meclizine Hcl 25 Mg Tablet PO TID PRN Vertigo Ondansetron HCl 4 mg 03/27/25 18:52 Ondansetron Inj 4 Mg/2 Ml Vial IV PUSH Q6H PRN Nausea And Vomiting Oxybutynin Chloride 10 mg 03/27/25 23:00 03/28/25 01:30 Oxybutynin Chloride Xl 5 Mg Tab.Er.24 PO Not Given HS GAUTAM Potassium Chloride 20 meq 03/28/25 09:00 03/28/25 09:21 Potassium Chloride 20 Meq Er Tablet PO 20 meq DAILY GAUTAM Administration Simvastatin 20 mg 03/28/25 09:00 03/28/25 09:21 Simvastatin 20 Mg Tablet PO 20 mg DAILY GAUTAM Administration Radiology Results: ITS Impressions Chest X-Ray 03/27/25 16:57 IMPRESSION: 1: Moderate-sized patchy opacities scattered throughout the left lung most prominent in the left lower lung. It addition, there are moderate sized patchy opacities in the right lower lung. Differential includes but is not limited to edema or pneumonia. Recommend follow-up to resolution. Consider a chest CT for further assessment. Chest CT 03/27/25 17:57 IMPRESSION: Probable left lower lobe bronchopneumonia. Follow-up is suggested to assess resolution.. Labs Labs: Laboratory Results - last 24 hr 03/27/25 03/27/25 03/28/25 16:55 21:00 05:56 WBC 16.5 H RBC 4.72 Hgb 13.8 Hct 42.9 MCV 90.9 MCH 29.2 MCHC 32.2 RDW 13.6 Plt Count 225 MPV 10.0 Immature Gran % (Auto) Not Reportable Neut % (Auto) Not Reportable Lymph % (Auto) Not Reportable [place] % (Auto) Not Reportable Eos % (Auto) Not Reportable Baso % (Auto) Not Reportable Lymph # (Auto) Not Reportable [place] # (Auto) Not Reportable Eos # (Auto) Not Reportable Baso # (Auto) Not Reportable Abs Immat Gran (auto) Not Reportable Absolute Neuts (auto) Not Reportable Absolute Nucleated RBC Not Reportable Total Counted 100 Neutrophils % (Manual) 85 H Band Neutrophils % 6 Lymphocytes % (Manual) 4 L Monocytes % (Manual) 5 Nucleated RBC % Not Reportable Abs Neuts (Manual) 15.01 H Abs Lymphs (Manual) 0.66 L Abs Monocytes (Manual) 0.82 Platelet Estimate Adequate Ovalocytes 1+ Schistocytes None seen PT 14.9 H INR 1.2 APTT 34.9 Sodium 135 L Potassium 4.2 Chloride 104 Carbon Dioxide 19 L Anion Gap 12 BUN 35 H Creatinine 1.48 H Estim Creat Clear Calc Not Reportable Estimated GFR 33 L Glucose 120 H Hemoglobin A1c Lactic Acid 1.2 Calcium 9.2 Total Bilirubin 1.1 AST 23 ALT 16 Alkaline Phosphatase 96 Troponin I 0.032 NT-Pro-B Natriuret Pep 1460 H Total Protein 7.8 Albumin 4.3 Urine Color Urine Appearance Urine pH Ur Specific [place] Urine Protein Urine Glucose (UA) Urine Ketones Ur Blood (Man) Urine Nitrate Urine Bilirubin Urine Urobilinogen Add Ur Microanalysis Leukocyte Esterase Rfl Urine RBC Urine WBC Ur Squamous Epith Cells Urine Bacteria Urine Casts Nasal MRSA (PCR) Not detected Influenza A (RT-PCR) Negative Influenza B (RT-PCR) Negative RSV (RT-PCR) Negative SARS-CoV-2 RNA (RT-PCR) Negative 03/28/25 03/28/25 03/28/25 05:58 06:04 10:56 WBC 22.0 H RBC 4.00 L Hgb 11.7 L Hct 36.1 L MCV 90.3 MCH 29.3 MCHC 32.4 RDW 13.4 Plt Count 183 MPV 10.7 H Immature Gran % (Auto) 1.1 H Neut % (Auto) 89.8 H Lymph % (Auto) 4.6 L [place] % (Auto) 4.4 Eos % (Auto) 0.0 Baso % (Auto) 0.1 L Lymph # (Auto) 1.02 [place] # (Auto) 1.0 H Eos # (Auto) 0.0 Baso # (Auto) 0.0 Abs Immat Gran (auto) 0.24 H Absolute Neuts (auto) 19.8 H Absolute Nucleated RBC 0.000 Total Counted Neutrophils % (Manual) Band Neutrophils % Lymphocytes % (Manual) Monocytes % (Manual) Nucleated RBC % 0.0 Abs Neuts (Manual) Abs Lymphs (Manual) Abs Monocytes (Manual) Platelet Estimate Ovalocytes Schistocytes PT INR APTT Sodium 130 L Potassium 3.9 Chloride 104 Carbon Dioxide 17 L Anion Gap 9 BUN 42 H Creatinine 1.47 H Estim Creat Clear Calc 33 Estimated GFR 34 L Glucose 203 H Hemoglobin A1c 5.9 H Lactic Acid Calcium 8.6 Total Bilirubin AST ALT Alkaline Phosphatase Troponin I NT-Pro-B Natriuret Pep Total Protein Albumin Urine Color Dark yellow Urine Appearance Cloudy H Urine pH 5.0 Ur Specific [place] 1.022 Urine Protein Negative Urine Glucose (UA) Negative Urine Ketones Trace H Ur Blood (Man) Negative Urine Nitrate Negative Urine Bilirubin Negative Urine Urobilinogen 1.0 Add Ur Microanalysis Reviewed Leukocyte Esterase Rfl 1+ H Urine RBC 0-2 Urine WBC 0-5 Ur Squamous Epith Cells Many H Urine Bacteria None seen Urine Casts 11-20 Nasal MRSA (PCR) Influenza A (RT-PCR) Influenza B (RT-PCR) RSV (RT-PCR) SARS-CoV-2 RNA (RT-PCR) Quality VTE Prophylaxis VTE prophylaxis: pharmacologic ordered -Patient's previous records reviewed on admission -ER notes reviewed in detail on admission -discussed all findings and current treatment plan with patient/Family/POA -Consultations reviewed for recommendations -Patient's disposition for safe discharge discussed with field nurse case manager Dictation performed by [employer] direct speech recognition software, therefore field administrative assistant variants and typographical errors may occur. Hospitalist MIPS Advance Care Plan I have confirmed that the patient's Advanced Care Plan is present, code status is documented, or surrogate decision maker is listed in patient medical record.: Yes Medication Reconciliation I have utilized all available resources to obtain, update and review the patients current medications (includes all prescriptions, OTC, herbals, cannabis, and nutritional supplements).: Yes The patient is not eligible for med reconciliation; the patient is in a emergent medical situation where delaying treatment would jeopardize the patients health.: No
[2025-03-28] MEDS: LACTATED RINGERS 1,000 ML 75 ML IV CONT (13:17)
[2025-03-28] MEDS: IPRATROPIUM 0.5 MG/ALBUTEROL SULFATE 2.5 MG AMPUL.NEB 3 ML INHALATION ×2 (13:55→21:38)
[2025-03-28] MEDS: cefTRIAXone 1 GM in SODIUM CHLORIDE 0.9% IV 50 ML 100 ML IVPB (17:32)
[2025-03-28] MEDS: oxyBUTYnin CHLORIDE XL 5 MG TAB.ER.24 10 MG PO (20:38)
[2025-03-28] MEDS: ALPRAZolam (*CRX) 0.5 MG TABLET PO (20:39)
[2025-03-29] VITALS (17 sets, daily range): BP systolic 141–147; BP diastolic 50–56; PULSE 65–77; RESP 18–20; TEMP 36.1–36.3; O2SAT 96–99
--- NOTE | 2025-03-29 | ECHO_ITS ---
Patient Info Name: Annie Davidson Age: 89 years : 1935 Gender: Female Ht: 68 in Wt: 266 lbs BSA: 2.46 m2 HR: 77 bpm BP: 142 / 50 mmHg Heart Rhythm: Sinus Rhythm Technical Quality: Fair Exam Date: 03/29/2025 4:26 PM Patient Status: I Admit Date: 03/27/2025 Exam Type: CA echo doppler color flow Complete two-dimensional, color flow and Doppler transthoracic echocardiogram is performed. Staff Referring Physician: Leila Kc Senior Paralegal: Ronny Carroll III Attending Provider: Davide Flanagan Summary 1. Complete two-dimensional, color flow and Doppler transthoracic echocardiogram is performed. 2. There is normal biventricular size and systolic function. 3. There are no significant valvular abnormalities. Left Ventricle The left ventricle is normal in size and systolic function. The left ventricular ejection fraction is visually estimated to be 60-65%. Right Ventricle The right ventricle is normal in size and systolic function. Left Atria The left atrium is normal size. Right Atria The right atrium is normal size. Atrial Septum The atrial septum is not well visualized. Aortic Valve The aortic valve is not well visualized. There does not appear to be any aortic stenosis or regurgitation. Pulmonic Valve The pulmonic valve is not well visualized. Mitral Valve The mitral valve leaflets are sclerotic. There is no mitral stenosis. There is mild mitral regurgitation. Tricuspid Valve The tricuspid valve is normal. Pericardium/Pleural Pericardium is normal in appearance with no evidence for significant pericardial effusion. Inferior Vena Cava Normal inferior vena cava with >50% collapse upon inspiration consistent with normal right atrial pressure, 3 mmHg. Aorta The aortic root at the level of the sinus of Valsalva measures 2.6 cm in diameter. Left Ventricular Outflow Tract Name Value Normal LVOT 2D LVOT Diameter 2.2 cm LVOT Doppler LVOT Peak Velocity 114 cm/s LVOT Peak Gradient 5 mmHg LVOT Mean Gradient 3 mmHg LVOT VTI 28 cm LVOT VTI/AV VTI Ratio 0.8 LVOT Stroke Volume 100 ml LVOT CO 18.8 l/min LVOT CI 7.6 l/min/m2 Mitral Valve Name Value Normal MV Doppler MV Peak Gradient 9 mmHg MV Mean Gradient 4 mmHg MV Area (Cont Eq VTI) 2.6 cm2 MV Diastolic Function MV E Peak Velocity 158 cm/s MV A Peak Velocity 120 cm/s MV E/A 1.3 MV Decel Time (PW) 192 ms MV Annular TDI MV E/e' (Septal) 14.5 MV E/e' (Lateral) 14.5 MV E/e' (Average) 14.5 Tricuspid Valve Name Value Normal Estimated PAP/RSVP RA Pressure 3 mmHg <=5 TV Annular TDI TV Lateral Caty s' Velocity 15.1 cm/s >=9.5 Aortic Valve Name Value Normal AV Doppler AV Peak Velocity 161 cm/s AV Peak Gradient 10 mmHg AV Mean Gradient 6 mmHg AV VTI 33 cm AV Area (Cont Eq VTI) 3.0 cm2 >=3.0 AV Area (Cont Eq Jean) 2.6 cm2 AV DI (Jean) 0.71 AV Regurgitation 2D LVOT Area 3.6 cm2 Ventricles Name Value Normal LV Dimensions 2D/MM IVS Diastolic Thickness (2D) 1.2 cm 0.6-1.0 LVID Diastole (2D) 3.4 cm 3.8-5.2 LVIW Diastolic Thickness (2D) 1.2 cm 0.6-0.9 LVID Systole (2D) 2.4 cm 2.2-3.5 LVOT Diameter 2.2 cm LV Mass (2D Cubed) 132.07 g 67.00-162.00 LV Mass Index (2D Cubed) 54 g/m2 43-95 Relative Wall Thickness (2D) 0.69 <=0.42 LV Fractional Shortening/Ejection Fraction 2D/MM LV Fractional Shortening (2D) 28 % 27-45 LV EF (2D Teichholz) 56 % LV Diastolic Volume (4C MOD) 89 ml LV EF (4C MOD) 63 % LV Diastolic Length (4C) 8.4 cm LV Systolic Length (4C) 6.4 cm LV Stroke Volume (4C MOD) 57 ml Atria Name Value Normal LA Dimensions LA Volume (4C A-L) 66 ml LA Volume (BP A-L) 65 ml RA Dimensions RA Systolic Major [place] Length (4C) 4.5 cm 2.2-2.8 RA Area (4C) 13.4 cm2 <=18.0 Report Signatures
[2025-03-29] MEDS: IPRATROPIUM 0.5 MG/ALBUTEROL SULFATE 2.5 MG AMPUL.NEB 3 ML INHALATION ×4 (02:47→21:47)
[2025-03-29] MEDS: DOXYCYCLINE IV 100 MG in SODIUM CHLORIDE 0.9% IV 100 ML IVPB ×2 (05:46→18:38)
[2025-03-29 05:56] LABS: Hematocrit 33.1 % (37.0-47.0); Hemoglobin 11.0 g/dL (12.0-15.0); Immature Granulocyte Percent A 1.1 % (0-0.5); Lymphocytes Absolute Auto 1.75 K/mm3 (0.9-3.2); Mean Corpuscular HGB Conc 33.2 g/dl (32-36); Mean Corpuscular Hemoglobin 29.9 pg (26-34); Mean Corpuscular Volume 89.9 fl (80-100); Nucleated Red Blood Cells Absolute Auto 0.000 K/mm3 (0.0-0.012); Nucleated Red Blood Cells Perc 0.0 % (0.0-0.2); Platelet Count Result 210 k/mm3 (150-375); Red Blood Count 3.68 M/mm3 (4.2-5.4); White Blood Count 21.2 K/mm3 (4.5-10.0)
[2025-03-29] MEDS: GABAPENTIN 100 MG CAPSULE PO ×3 (05:57→20:28)
[2025-03-29] MEDS: LEVOTHYROXINE SODIUM 125 MCG TABLET PO (05:57)
[2025-03-29 06:30] LABS: Alanine Aminotransferase 13 U/L (6-35); Albumin Level 3.3 g/dL (3.5-5.1); Alkaline Phosphatase 94 U/L (38-126); Anion Gap 8 mmol/L (4-12); Aspartate Amino Transferase 24 U/L (14-36); Bilirubin,Total 0.3 mg/dL (0.2-1.3); Blood Urea Nitrogen 55 mg/dL (7-17); Calcium 8.6 mg/dL (8.4-10.2); Carbon Dioxide 19 mmol/L (22-30); Chloride 103 mmol/L (98-107); Estimated CRCL calculation 30 ml/min; Estimated Glomerular Filt Rate 31; Glucose 120 mg/dL (65-110); Magnesium 2.2 mg/dL (1.6-2.3); Potassium 4.7 mmol/L (3.4-5.0); Sodium 130 mmol/L (137-145); Total Protein 6.3 g/dL (6.3-8.2)
[2025-03-29] MEDS: LOSARTAN POTASSIUM 100 MG TABLET PO (09:08)
[2025-03-29] MEDS: POTASSIUM CHLORIDE 20 MEQ ER TABLET PO (09:08)
[2025-03-29] MEDS: guaiFENesin 12 HR 600 MG TABCR PO ×2 (09:08→20:28)
[2025-03-29] MEDS: ASPIRIN 81 MG ENTERIC TABLET PO (09:08)
[2025-03-29] MEDS: SIMVASTATIN 20 MG TABLET PO (09:08)
[2025-03-29] MEDS: ESCITALOPRAM OXALATE 5 MG TABLET PO (09:08)
[2025-03-29] MEDS: INDAPAMIDE 2.5 MG TABLET PO (09:08)
[2025-03-29] MEDS: BENZONATATE 100 MG CAPSULE PO ×3 (09:08→17:28)
[2025-03-29] MEDS: ENOXAPARIN 40 MG/0.4 ML SYRINGE SUB-Q (09:09)
--- NOTE | 2025-03-29 10:34 | P.PNIM_ITS ---
Progress Note: A&P Assessment and Plan (1) Sepsis: Qualifiers: Sepsis acute organ dysfunction status: without acute organ dysfunction Sepsis type: sepsis due to unspecified organism Qualified Code(s): A41.9 - S epsis, unspecified organism Code(s): A41.9 - Sepsis, unspecified organism Status: Acute Assessment and Plan: meets SIRS criteria: HR >90, RR >20, WBC greater than 12. Lactic 1.2 Now has fever of 100.2? F. was given 3.6 L in ED. Likely secondary to Pneumonia * ceftriaxone and doxycycline * blood cultures pending NGTD Q24hrs * monitor hemodynamic stability (2) Pneumonia: Qualifiers: Laterality: bilateral Lung location: unspecified part of lung Pneumonia type: due to unspecified organism Qualified Code(s): J18.9 - Pneumonia, unspecified organism Code(s): J18.9 - Pneumonia, unspecified organism Status: Acute Assessment and Plan: CXR: Moderate-sized patchy opacities scattered throughout the left lung most prominent in the left lower lung. It addition, there are moderate sized patchy opacities in the right lower lung. Differential includes but is not limited to edema or pneumonia. Recommend follow-up to resolution. Consider a chest CT for further assessment. Chest CT: Probable left lower lobe bronchopneumonia. Follow- up is suggested to assess resolution. Viral panel negative, MRSA negative. WBC with uptrend but likely secondary to receiving methylprednisone. * Ceftriaxone and doxycycline * Blood cultures pending * sputum culture pending * Mucinex * Tessalon Perles * DuoNebs * Tylenol * currently on supplemental O2 for comfort, no hypoxia noted * Incentive spirometer (3) Hypothyroidism: Qualifiers: Hypothyroidism type: unspecified Qualified Code(s): E03.9 - Hypothyroidism, unspecified Code(s): E03.9 - Hypothyroidism, unspecified Status: Acute Assessment and Plan: * continue home Synthroid (4) Essential hypertension: Code(s): I10 - Essential (primary) hypertension Status: Acute Assessment and Plan: * continue home medications: Amlodipine, indapamide, losartan * Monitor per unit protocol (5) Hyperglycemia: Code(s): R73.9 - Hyperglycemia, unspecified Status: Acute Assessment and Plan: Patient with glucose as high as 203 no history of diabetes * A1c 5.9 * Patient can follow-up with her primary outpatient for 3-6 month A1c check (6) Acute kidney injury: Code(s): N17.9 - Acute kidney failure, unspecified Status: Acute Assessment and Plan: No previous HX of CKD likely secondary to dehydration but patient with poor urinary output. * Bladder scan PRN * Gentle IV hydration. * Avoid nephrotoxic drugs. * Monitor antihypertensive drug therapy. * Avoid NSAIDs. * Routine CMP monitoring GFR. * Monitor electrolytes especially potassium. (7) Pulmonary edema: Code(s): J81.1 - Chronic pulmonary edema Status: Acute Assessment and Plan: Patient with bibasliar crackles L>R no HX of CHF but BNP elevated on admission a nd continues to need supplemental oxygen * F/U CXR * repeat BNP * Echo pending * pending CXR and BNP may give IV lasix Plan Code status: Full code per patient DVT prophylaxis: Lovenox Stress ulcer prophylaxis: NA PT/OT notes: PT/OT pending Disposition: Patient was admitted to the medical unit for further evaluation and treatment pneumonia with sepsis will continue with current treatment need to evaluate for CHF with pulmonary congestion. PT/OT for evaluation for possible discharge needs. Time Spent With Patient Time with patient: 15 - 25 minutes Subjective Date/time seen: 03/29/25 10:34 Interval history: Patient is an 81-year-old female admitted to the medical unit for further evaluation treatment of acute respiratory with hypoxia secondary to sepsis with pneumonia. 03/29/2025: Patient seen up in chair still with respiratory discomfort and SOB with any type of activity. Denies CP, Dizziness, N/V. Reports voiding well but has HX of bladder spasms. Patient with moderate crackles heard L>R no HX of CHF but BNP elevated on admission will get follow-up CXR, BNP and echo for evaluation Review of Systems Review of Systems: All systems reviewed & are unremarkable except as noted in HPI and below Exam Const: General: comfortable and no acute distress Other: , female, elderly, ill-appearing, obese body habitus HENMT: Face/Nose/Sinus: Normal nares present Mouth: Yes moist mucous membranes Eyes: General: appearance normal, both eyes and all related structures Sclera: sclerae normal Pupils: Equal, round and reactive pupils present EOM: EOMs intact bilaterally Resp: Effort & Inspection: abnormal respiratory pattern, Actively coughing, tachypneic and uses accessory muscles Auscultation: wheezes (moderate) scattered wheezes Other: Bibasilar crackles, L>R. Scattered wheezing, faint. Cardio: Rate: tachycardic (Mild, 115) Rhythm: regular rhythm Other: S1-S2 present without murmur, rub, ectopy GI: Other: Abdomen soft, nondistended, nontender. Normoactive bowel sounds in all quadrants. Skin: General skin exam: normal color and no rashes or lesions noted Wou nds: no wounds Neuro: Cranial nerves: Yes Equal, round and reactive pupils present Speech: normal speech Motor exam (neuro): 5/5 motor strength present throughout Sensory Exam: normal sensation Other: A&O x4 Extrem: General: normal to inspection Psych: Mental Status: mental status grossly normal Affect: normal affect Other: Good insight and judgment, very pleasant Objective Data Vital Signs Vital Signs: Vital Signs - 24 hr 03/28/25 10:36 03/28/25 12:00 03/28/25 13:57 Temperature 98.4 F Pulse Rate 65 64 Respiratory Rate 20 Blood Pressure 122/52 L Pulse Oximetry 95 97 Oxygen Delivery Nasal Cannula Oxygen Flow Rate 4 Fraction of Inspired Oxygen 03/28/25 13:57 03/28/25 14:07 03/28/25 14:31 Temperature Pulse Rate 68 72 Respiratory Rate 24 H 24 H Blood Pressure Pulse Oximetry 94 Oxygen Delivery Nasal Cannula Oxygen Flow Rate 2 Fraction of Inspired Oxygen 03/28/25 14:52 03/28/25 16:00 03/28/25 18:26 Temperature 98.0 F 97.7 F Pulse Rate 70 72 68 Respiratory Rate 20 20 Blood Pressure 132/42 L 138/58 L Pulse Oximetry 94 94 Oxygen Delivery Oxygen Flow Rate Fraction of Inspired Oxygen 03/28/25 20:00 03/28/25 20:00 03/28/25 20:32 Temperature 97.2 F L Pulse Rate 76 72 Respiratory Rate 20 Blood Pressure 136/52 L Pulse Oximetry 96 96 Oxygen Delivery Nasal Cannula Oxygen Flow Rate 2 Fraction of Inspired Oxygen 03/28/25 21:40 03/28/25 21:40 03/28/25 21:45 Temperature Pulse Rate 71 72 Respiratory Rate 22 H 22 H Blood Pressure Pulse Oximetry 95 Oxygen Delivery Nasal Cannula Oxygen Flow Rate 2 Fraction of Inspired Oxygen 03/29/25 00:00 03/29/25 02:48 03/29/25 04:00 Temperature Pulse Rate 74 76 69 Respiratory Rate 20 Blood Pressure Pulse Oximetry Oxygen Delivery Oxygen Flow Rate Fraction of Inspired Oxygen 03/29/25 05:38 03/29/25 08:00 03/29/25 08:20 Temperature 97 F L Pulse Rate 69 75 Respiratory Rate 20 20 Blood Pressure 147/56 H Pulse Oximetry 96 96 Oxygen Delivery Nasal Cannula Nasal Cannula Oxygen Flow Rate 2 2.5 Fraction of Inspired Oxygen 36 03/29/25 08:50 03/29/25 08:56 Temperature Pulse Rate 72 75 Respiratory Rate 20 20 Blood Pressure Pulse Oximetry Oxygen Delivery Oxygen Flow Rate Fraction of Inspired Oxygen Intake/Output Intake/Output: Intake & Output 03/26/25 03/27/25 03/28/25 03/29/25 23:59 23:59 23:59 23:59 Intake Total 100 2009 490 Output Total 40 50 Balance 100 1969 440 Meds/Results Medications: Active Medications Generic Name Dose Route Start Last Admin Trade Name Freq PRN Reason Stop Dose Admin Acetaminophen 650 mg 03/27/25 18:52 Acetaminophen 325 Mg Tablet PO Q4H PRN Mild Pain (1-3) or Fever Hydrocodone Bitart/Acetaminophen 1 tab 03/27/25 18:52 Hydrocodone/Acetaminophen (*Crx) 5-325 Mg Tablet PO Q4H PRN Moderate Pain (4-6) Albuterol/Ipratropium 3 ml 03/28/25 14:00 03/29/25 08:49 Ipratropium 0.5 Mg/Albuterol Sulfate 2.5 Mg Ampul.Neb 3 Ml INHALATION 3 ml Q6HRT GAUTAM Administration Alprazolam 0.5 mg 03/28/25 21:00 03/28/25 20:39 Alprazolam (*Crx) 0.5 Mg Tablet PO 0.5 mg HS GAUTAM Administration Amlodipine Besylate 5 mg 03/28/25 09:00 03/29/25 09:09 Amlodipine Besylate 5 Mg Tablet PO 5 mg DAILY GAUTAM Administration Aspirin 81 mg 03/28/25 09:00 03/29/25 09:08 Aspirin 81 Mg Enteric Tablet PO 81 mg QAM GAUATM Administration Benzonatate 100 mg 03/28/25 09:00 03/29/25 09:08 Benzonatate 100 Mg Capsule PO 100 mg TID GAUTAM Administration Bisacodyl 10 mg 03/27/25 18:52 Bisacodyl 10 Mg Suppository RECTAL ONCE PRN Constipation Enoxaparin Sodium 40 mg 03/28/25 09:00 03/29/25 09:09 Enoxaparin 40 Mg/0.4 Ml Syringe SUB-Q 40 mg DAILY GAUTAM Administration Escitalopram Oxalate 5 mg 03/28/25 09:00 03/29/25 09:08 Escitalopram Oxalate 5 Mg Tablet PO 5 mg DAILY GAUTAM Administration Gabapentin 100 mg 03/27/25 22:40 03/29/25 05:57 Gabapentin 100 Mg Capsule PO 100 mg Q8HR GAUTAM Administration Guaifenesin 600 mg 03/27/25 21:00 03/29/25 09:08 Guaifenesin 12 Hr 600 Mg Tabcr PO 600 mg Q12HR GAUTAM Administration Ceftriaxone Sodium 1 gm/ 50 mls @ 100 mls/hr 03/28/25 18:00 03/28/25 17:32 Sodium Chloride IVPB 100 mls/hr Q24H GAUTAM Administration Doxycycline Hyclate 100 mg/ 100 mls @ 100 mls/hr 03/28/25 07:00 03/29/25 05:46 Sodium Chloride IVPB 04/01/25 19:59 100 mls/hr Q12H GAUTAM Administration Lactated Ringer's 1,000 mls @ 75 mls/hr 03/28/25 13:05 03/29/25 09:09 Lr - Lactated Ringers Iv IV CONT Not Given .[id number] GAUTAM Indapamide 2.5 mg 03/28/25 09:00 03/29/25 09:08 Indapamide 2.5 Mg Tablet PO 2.5 mg DAILY GAUTAM Administration Levothyroxine Sodium 125 mcg 03/28/25 06:30 03/29/25 05:57 Levothyroxine Sodium 125 Mcg Tablet PO 125 mcg DAILY@0630 GAUTAM Administration Losartan Potassium 100 mg 03/28/25 09:00 03/29/25 09:08 Losartan Potassium 100 Mg Tablet PO 100 mg DAILY GAUTAM Administration Meclizine HCl 25 mg 03/27/25 22:37 Meclizine Hcl 25 Mg Tablet PO TID PRN Vertigo Ondansetron HCl 4 mg 03/27/25 18:52 Ondansetron Inj 4 Mg/2 Ml Vial IV PUSH Q6H PRN Nausea And Vomiting Oxybutynin Chloride 10 mg 03/27/25 23:00 03/28/25 20:38 Oxybutynin Chloride Xl 5 Mg Tab.Er.24 PO 10 mg HS GAUTAM Administration Potassium Chloride 20 meq 03/28/25 09:00 03/29/25 09:08 Potassium Chloride 20 Meq Er Tablet PO 20 meq DAILY GAUTAM Administration Simvastatin 20 mg 03/28/25 09:00 03/29/25 09:08 Simvastatin 20 Mg Tablet PO 20 mg DAILY GAUTAM Administration Radiology Results: ITS Impressions Chest X-Ray 03/27/25 16:57 IMPRESSION: 1: Moderate-sized patchy opacities scattered throughout the left lung most prominent in the left lower lung. It addition, there are moderate sized patchy opacities in the right lower lung. Differential includes but is not limited to edema or pneumonia. Recommend follow-up to resolution. Consider a chest CT for further assessment. Chest CT 03/27/25 17:57 IMPRESSION: Probable left lower lobe bronchopneumonia. Follow-up is suggested to assess resolution.. Labs Labs: Laboratory Results - last 24 hr 03/28/25 03/29/25 10:56 05:32 WBC 21.2 H RBC 3.68 L Hgb 11.0 L Hct 33.1 L MCV 89.9 MCH 29.9 MCHC 33.2 RDW 13.6 Plt Count 210 MPV 11.0 H Immature Gran % (Auto) 1.1 H Neut % (Auto) 83.9 H Lymph % (Auto) 8.2 L [place]ole % (Auto) 6.6 Eos % (Auto) 0.1 Baso % (Auto) 0.1 L Lymph # (Auto) 1.75 [place]ole # (Auto) 1.4 H Eos # (Auto) 0.0 Baso # (Auto) 0.0 Abs Immat Gran (auto) 0.23 H Absolute Neuts (auto) 17.8 H Absolute Nucleated RBC 0.000 Nucleated RBC % 0.0 Sodium 130 L Potassium 4.7 Chloride 103 Carbon Dioxide 19 L Anion Gap 8 BUN 55 H D Creatinine 1.58 H Estim Creat Clear Calc 30 Estimated GFR 31 L Glucose 120 H Calcium 8.6 Magnesium 2.2 Total Bilirubin 0.3 AST 24 ALT 13 Alkaline Phosphatase 94 Total Protein 6.3 Albumin 3.3 L Urine Color Dark yellow Urine Appearance Cloudy H Urine pH 5.0 Ur Specific [place] 1.022 Urine Protein Negative Urine Glucose (UA) Negative Urine Ketones Trace H Ur Blood (Man) Negative Urine Nitrate Negative Urine Bilirubin Negative Urine Urobilinogen 1.0 Add Ur Microanalysis Reviewed Leukocyte Esterase Rfl 1+ H Urine RBC 0-2 Urine WBC 0-5 Ur Squamous Epith Cells Many H Urine Bacteria None seen Urine Casts 11-20 Quality VTE Prophylaxis VTE prophylaxis: pharmacologic ordered -Patient's previous records reviewed on admission -ER notes reviewed in detail on admission -discussed all findings and current treatment plan with patient/Family/POA -Consultations reviewed for recommendations -Patient's disposition for safe discharge discussed with rn case manager Dictation performed by [employer] direct speech recognition software, therefore network field engineer variants and typographical errors may occur. Hospitalist MIPS Advance Care Plan I have confirmed that the patient's Advanced Care Plan is present, code status is documented, or surrogate decision maker is listed in patient medical record.: Yes Medication Reconciliation I have utilized all available resources to obtain, update and review the patients current medications (includes all prescriptions, OTC, herbals, cannabis, and nutritional supplements).: Yes The patient is not eligible for med reconciliation; the patient is in a emergent medical situation where delaying treatment would jeopardize the patients health.: No
[2025-03-29] MEDS: LACTATED RINGERS 1,000 ML 75 ML IV CONT (13:10)
[2025-03-29 15:28] LABS: NT Pro B Type Natriuretic Pept 1800 pg/mL (19.9-100)
[2025-03-29] MEDS: cefTRIAXone 1 GM in SODIUM CHLORIDE 0.9% IV 50 ML 100 ML IVPB (17:29)
[2025-03-29] MEDS: ALPRAZolam (*CRX) 0.5 MG TABLET PO (20:28)
[2025-03-29] MEDS: oxyBUTYnin CHLORIDE XL 5 MG TAB.ER.24 10 MG PO (20:28)
[2025-03-30] VITALS (15 sets, daily range): BP systolic 118–159; BP diastolic 54–64; PULSE 69–96; RESP 18–24; TEMP 36.2–36.9; O2SAT 94–100
[2025-03-30] MEDS: IPRATROPIUM 0.5 MG/ALBUTEROL SULFATE 2.5 MG AMPUL.NEB 3 ML INHALATION ×4 (03:06→21:07)
[2025-03-30] MEDS: LACTATED RINGERS 1,000 ML 75 ML IV CONT (05:11)
[2025-03-30] MEDS: GABAPENTIN 100 MG CAPSULE PO ×3 (05:11→20:34)
[2025-03-30] MEDS: DOXYCYCLINE IV 100 MG in SODIUM CHLORIDE 0.9% IV 100 ML IVPB (05:11)
[2025-03-30] MEDS: LEVOTHYROXINE SODIUM 125 MCG TABLET PO (05:13)
[2025-03-30 05:50] LABS: Hematocrit 33.0 % (37.0-47.0); Hemoglobin 10.7 g/dL (12.0-15.0); Immature Granulocyte Percent A 1.0 % (0-0.5); Lymphocytes Absolute Auto 2.30 K/mm3 (0.9-3.2); Mean Corpuscular HGB Conc 32.4 g/dl (32-36); Mean Corpuscular Hemoglobin 29.7 pg (26-34); Mean Corpuscular Volume 91.7 fl (80-100); Nucleated Red Blood Cells Absolute Auto 0.000 K/mm3 (0.0-0.012); Nucleated Red Blood Cells Perc 0.0 % (0.0-0.2); Platelet Count Result 236 k/mm3 (150-375); Red Blood Count 3.60 M/mm3 (4.2-5.4); White Blood Count 11.0 K/mm3 (4.5-10.0)
[2025-03-30 06:09] LABS: Alanine Aminotransferase 12 U/L (6-35); Albumin Level 3.2 g/dL (3.5-5.1); Alkaline Phosphatase 79 U/L (38-126); Anion Gap 7 mmol/L (4-12); Aspartate Amino Transferase 32 U/L (14-36); Bilirubin,Total 0.2 mg/dL (0.2-1.3); Blood Urea Nitrogen 51 mg/dL (7-17); Calcium 8.6 mg/dL (8.4-10.2); Carbon Dioxide 19 mmol/L (22-30); Chloride 104 mmol/L (98-107); Estimated CRCL calculation 38 ml/min; Estimated Glomerular Filt Rate 40; Glucose 90 mg/dL (65-110); Magnesium 2.1 mg/dL (1.6-2.3); Potassium 4.4 mmol/L (3.4-5.0); Sodium 130 mmol/L (137-145); Total Protein 6.0 g/dL (6.3-8.2)
[2025-03-30] MEDS: BENZONATATE 100 MG CAPSULE PO ×3 (08:31→17:48)
[2025-03-30] MEDS: SIMVASTATIN 20 MG TABLET PO (08:31)
[2025-03-30] MEDS: ASPIRIN 81 MG ENTERIC TABLET PO (08:31)
[2025-03-30] MEDS: ESCITALOPRAM OXALATE 5 MG TABLET PO (08:31)
[2025-03-30] MEDS: LOSARTAN POTASSIUM 100 MG TABLET PO (08:31)
[2025-03-30] MEDS: INDAPAMIDE 2.5 MG TABLET PO (08:31)
[2025-03-30] MEDS: POTASSIUM CHLORIDE 20 MEQ ER TABLET PO (08:31)
[2025-03-30] MEDS: guaiFENesin 12 HR 600 MG TABCR PO ×2 (08:31→20:33)
[2025-03-30] MEDS: ENOXAPARIN 40 MG/0.4 ML SYRINGE SUB-Q (08:34)
--- NOTE | 2025-03-30 11:18 | P.PNIM_ITS ---
Progress Note: A&P Assessment and Plan (1) Sepsis: Qualifiers: Sepsis acute organ dysfunction status: without acute organ dysfunction Sepsis type: sepsis due to unspecified organism Qualified Code(s): A41.9 - S epsis, unspecified organism Code(s): A41.9 - Sepsis, unspecified organism Status: Acute Assessment and Plan: meets SIRS criteria: HR >90, RR >20, WBC greater than 12. Lactic 1.2 Now has fever of 100.2? F. was given 3.6 L in ED. Likely secondary to Pneumonia * ceftriaxone and doxycycline transitioned to oral Augmentin and Azithromycin * blood cultures pending NGTD Q48hrs * monitor hemodynamic stability (2) Pneumonia: Qualifiers: Laterality: bilateral Lung location: unspecified part of lung Pneumonia type: due to unspecified organism Qualified Code(s): J18.9 - Pneumonia, unspecified organism Code(s): J18.9 - Pneumonia, unspecified organism Status: Acute Assessment and Plan: CXR: Moderate-sized patchy opacities scattered throughout the left lung most prominent in the left lower lung. It addition, there are moderate sized patchy opacities in the right lower lung. Differential includes but is not limited to edema or pneumonia. Recommend follow-up to resolution. Consider a chest CT for further assessment. Chest CT: Probable left lower lobe bronchopneumonia. Follow- up is suggested to assess resolution. Viral panel negative, MRSA negative. WBC with uptrend but likely secondary to receiving methylprednisone.WBC downtrended to 11 03/30/2025 * Ceftriaxone and doxycycline transitioned Augmentin and Azithromycin * Blood cultures NGTD Q48hrs * Mucinex * Tessalon Perles * DuoNebs * Tylenol * supplemental O2 wean as tolerated down to 1 L NC * Incentive spirometer (3) Hypothyroidism: Qualifiers: Hypothyroidism type: unspecified Qualified Code(s): E03.9 - Hypothyroidism, unspecified Code(s): E03.9 - Hypothyroidism, unspecified Status: Acute Assessment and Plan: * continue home Synthroid (4) Essential hypertension: Code(s): I10 - Essential (primary) hypertension Status: Acute Assessment and Plan: * continue home medications: Amlodipine, indapamide, losartan * Monitor per unit protocol (5) Hyperglycemia: Code(s): R73.9 - Hyperglycemia, unspecified Status: Acute Assessment and Plan: Patient with glucose as high as 203 no history of diabetes * A1c 5.9 * Patient can follow-up with her primary outpatient for 3-6 month A1c check (6) Acute kidney injury: Code(s): N17.9 - Acute kidney failure, unspecified Status: Acute Assessment and Plan: No previous HX of CKD likely secondary to dehydration but patient with poor urinary output. * Bladder scan PRN * Gentle IV hydration. * Avoid nephrotoxic drugs. * Monitor antihypertensive drug therapy. * Avoid NSAIDs. * Routine CMP monitoring GFR. * Monitor electrolytes especially potassium. (7) Pulmonary edema: Code(s): J81.1 - Chronic pulmonary edema Status: Ruled-out Assessment and Plan: Patient with bibasliar crackles L>R no HX of CHF but BNP elevated on admission and continues to need supplemental oxygen * F/U CXR unchanged * repeat BNP mildly elevated * Echo LVEF 60-65% Plan Code status: Full code per patient DVT prophylaxis: Lovenox Stress ulcer prophylaxis: NA PT/OT notes: PT/OT pending Disposition: Patient was admitted to the medical unit for further evaluation and treatment pneumonia with sepsis will continue with current treatment changed to oral ABX and wean oxygen PT/OT for evaluation plan for discharge to home with home health Time Spent With Patient Time with patient: 15 - 25 minutes Subjective Date/time seen: 03/30/25 11:18 Interval history: Patient is an 81-year-old female admitted to the medical unit for further evaluation treatment of acute respiratory with hypoxia secondary to sepsis with pneumonia. 03/30/2025: Patient up in chair still with noticeable breathing discomfort with tachypnea reports SOB improving and was better when she ambulated today. Review of Systems Review of Systems: All systems reviewed & are unremarkable except as noted in HPI and below Exam Const: General: comfortable and no acute distress Other: , female, elderly, ill-appearing, obese body habitus HENMT: Face/Nose/Sinus: Normal nares present Mouth: Yes moist mucous membranes Eyes: General: appearance normal, both eyes and all related structures Sclera: sclerae normal Pupils: Equal, round and reactive pupils present EOM: EOMs intact bilaterally Resp: Effort & Inspection: abnormal respiratory pattern, Actively coughing, tachypneic and uses accessory muscles Auscultation: wheezes (moderate) scattered wheezes and diminished lung sounds bilateral throughout Other: Bibasilar crackles, L>R. Scattered wheezing, faint. Cardio: Rate: tachycardic (Mild, 115) Rhythm: regular rhythm Other: S1-S2 present without murmur, rub, ectopy GI: Other: Abdomen soft, nondistended, nontender. Normoactive bowel sounds in all quadran ts. Skin: General skin exam: normal color and no rashes or lesions noted Wounds: no wounds Neuro: Cranial nerves: Yes Equal, round and reactive pupils present Speech: normal speech Motor exam (neuro): 5/5 motor strength present throughout Sensory Exam: normal sensation Other: A&O x4 Extrem: General: normal to inspection Psych: Mental Status: mental status grossly normal Affect: normal affect Other: Good insight and judgment, very pleasant Objective Data Vital Signs Vital Signs: Vital Signs - 24 hr 03/29/25 12:00 03/29/25 13:05 03/29/25 13:14 Temperature Pulse Rate 68 75 70 Respiratory Rate 20 20 Blood Pressure Pulse Oximetry Oxygen Delivery Oxygen Flow Rate 03/29/25 15:26 03/29/25 16:00 03/29/25 19:56 Temperature 97.3 F L 97.3 F L Pulse Rate 77 68 71 Respiratory Rate 18 20 Blood Pressure 142/50 H 141/52 H Pulse Oximetry 99 98 Oxygen Delivery Oxygen Flow Rate 03/29/25 20:00 03/29/25 20:00 03/29/25 21:48 Temperature Pulse Rate 71 71 Respiratory Rate 18 Blood Pressure Pulse Oximetry 97 Oxygen Delivery Nasal Cannula Oxygen Flow Rate 2 03/29/25 21:50 03/29/25 21:54 03/30/25 00:00 Temperature Pulse Rate 72 71 Respiratory Rate 18 Blood Pressure Pulse Oximetry 96 Oxygen Delivery Nasal Cannula Oxygen Flow Rate 2 03/30/25 03:07 03/30/25 03:13 03/30/25 04:00 Temperature 97.1 F L Pulse Rate 70 73 89 Respiratory Rate 18 18 20 Blood Pressure 143/64 H Pulse Oximetry 95 Oxygen Delivery Oxygen Flow Rate 03/30/25 04:00 03/30/25 07:23 03/30/25 07:23 Temperature Pulse Rate 77 86 Respiratory Rate 20 Blood Pressure Pulse Oximetry 94 Oxygen Delivery Nasal Cannula Oxygen Flow Rate 1 03/30/25 07:31 03/30/25 08:00 03/30/25 09:44 Temperature Pulse Rate 94 Respiratory Rate 24 H Blood Pressure Pulse Oximetry 96 Oxygen Delivery Nasal Cannula Nasal Cannula Oxygen Flow Rate 2 2 Intake/Output Intake/Output: Intake & Output 03/27/25 03/28/25 03/29/25 03/30/25 23:59 23:59 23:59 23:59 Intake Total 100 2060 2530 1680 Output Total 40 450 700 Balance 100 2019 2079 980 Meds/Results Medications: Active Medications Generic Name Dose Route Start Last Admin Trade Name Freq PRN Reason Stop Dose Admin Acetaminophen 650 mg 03/27/25 18:52 Acetaminophen 325 Mg Tablet PO Q4H PRN Mild Pain (1-3) or Fever Hydrocodone Bitart/Acetaminophen 1 tab 03/27/25 18:52 Hydrocodone/Acetaminophen (*Crx) 5-325 Mg Tablet PO Q4H PRN Moderate Pain (4-6) Albuterol/Ipratropium 3 ml 03/28/25 14:00 03/30/25 07:21 Ipratropium 0.5 Mg/Albuterol Sulfate 2.5 Mg Ampul.Neb 3 Ml INHALATION 3 ml Q6HRT GAUTAM Administration Alprazolam 0.5 mg 03/28/25 21:00 03/29/25 20:28 Alprazolam (*Crx) 0.5 Mg Tablet PO 0.5 mg HS GAUTAM Administration Amlodipine Besylate 5 mg 03/28/25 09:00 03/30/25 08:31 Amlodipine Besylate 5 Mg Tablet PO 5 mg DAILY GAUTAM Administration Aspirin 81 mg 03/28/25 09:00 03/30/25 08:31 Aspirin 81 Mg Enteric Tablet PO 81 mg QAM GAUTAM Administration Benzonatate 100 mg 03/28/25 09:00 03/30/25 08:31 Benzonatate 100 Mg Capsule PO 100 mg TID GAUTAM Administration Bisacodyl 10 mg 03/27/25 18:52 Bisacodyl 10 Mg Suppository RECTAL ONCE PRN Constipation Enoxaparin Sodium 40 mg 03/28/25 09:00 03/30/25 08:34 Enoxaparin 40 Mg/0.4 Ml Syringe SUB-Q 40 mg DAILY GAUTAM Administration Escitalopram Oxalate 5 mg 03/28/25 09:00 03/30/25 08:31 Escitalopram Oxalate 5 Mg Tablet PO 5 mg DAILY GAUTAM Administration Gabapentin 100 mg 03/27/25 22:40 03/30/25 05:11 Gabapentin 100 Mg Capsule PO 100 mg Q8HR GAUTAM Administration Guaifenesin 600 mg 03/27/25 21:00 03/30/25 08:31 Guaifenesin 12 Hr 600 Mg Tabcr PO 600 mg Q12HR GAUTAM Administration Ceftriaxone Sodium 1 gm/ 50 mls @ 100 mls/hr 03/28/25 18:00 03/29/25 17:29 Sodium Chloride IVPB 100 mls/hr Q24H GAUTAM Administration Doxycycline Hyclate 100 mg/ 100 mls @ 100 mls/hr 03/28/25 07:00 03/30/25 05:11 Sodium Chloride IVPB 04/01/25 19:59 100 mls/hr Q12H GAUTAM Administration Indapamide 2.5 mg 03/28/25 09:00 03/30/25 08:31 Indapamide 2.5 Mg Tablet PO 2.5 mg DAILY GAUTAM Administration Levothyroxine Sodium 125 mcg 03/28/25 06:30 03/30/25 05:13 Levothyroxine Sodium 125 Mcg Tablet PO 125 mcg DAILY@0630 GAUTAM Administration Losartan Potassium 100 mg 03/28/25 09:00 03/30/25 08:31 Losartan Potassium 100 Mg Tablet PO 100 mg DAILY GAUTAM Administration Meclizine HCl 25 mg 03/27/25 22:37 Meclizine Hcl 25 Mg Tablet PO TID PRN Vertigo Ondansetron HCl 4 mg 03/27/25 18:52 Ondansetron Inj 4 Mg/2 Ml Vial IV PUSH Q6H PRN Nausea And Vomiting Oxybutynin Chloride 10 mg 03/27/25 23:00 03/29/25 20:28 Oxybutynin Chloride Xl 5 Mg Tab.Er.24 PO 10 mg HS GAUTAM Administration Perflutren Lipid Microsphere 0 ml 03/29/25 14:37 Perflutren Lipid Microspheres 1.5 Ml Vial Diluted To 10 Ml Total Volume IV PUSH 04/01/25 14:39 ONCE PRN adequate visualization Protocol Potassium Chloride 20 meq 03/28/25 09:00 03/30/25 08:31 Potassium Chloride 20 Meq Er Tablet PO 20 meq DAILY GAUTAM Administration Simvastatin 20 mg 03/28/25 09:00 03/30/25 08:31 Simvastatin 20 Mg Tablet PO 20 mg DAILY GAUTAM Administration Radiology Results: ITS Impressions Chest CT 03/27/25 17:57 IMPRESSION: Probable left lower lobe bronchopneumonia. Follow-up is suggested to assess resolution.. Chest X-Ray 03/29/25 15:41 IMPRESSION: 1: Grossly stable moderate-sized patchy opacities scattered throughout the left lung with prominent in the left lower lung. Recommend follow-up to resolution. 2. Grossly stable moderate-sized opacities in the right lower lung. Recommend follow-up to resolution. Labs Labs: Laboratory Results - last 24 hr 03/29/25 03/30/25 05:31 05:24 WBC 11.0 H RBC 3.60 L Hgb 10.7 L Hct 33.0 L MCV 91.7 MCH 29.7 MCHC 32.4 RDW 13.7 Plt Count 236 MPV 10.8 H Immature Gran % (Auto) 1.0 H Neut % (Auto) 66.6 Lymph % (Auto) 20.8 [place] % (Auto) 9.2 H Eos % (Auto) 2.0 Baso % (Auto) 0.4 Lymph # (Auto) 2.30 [place] # (Auto) 1.0 H Eos # (Auto) 0.2 Baso # (Auto) 0.0 Abs Immat Gran (auto) 0.11 H Absolute Neuts (auto) 7.4 H Absolute Nucleated RBC 0.000 Nucleated RBC % 0.0 Sodium 130 L Potassium 4.4 Chloride 104 Carbon Dioxide 19 L Anion Gap 7 BUN 51 H Creatinine 1.26 H Estim Creat Clear Calc 38 Estimated GFR 40 L Glucose 90 Calcium 8.6 Magnesium 2.1 Total Bilirubin 0.2 AST 32 ALT 12 Alkaline Phosphatase 79 NT-Pro-B Natriuret Pep 1800 H Total Protein 6.0 L Albumin 3.2 L Quality VTE Prophylaxis VTE prophylaxis: pharmacologic ordered -Patient's previous records reviewed on admission -ER notes reviewed in detail on admission -discussed all findings and current treatment plan with patient/Family/POA -Consultations reviewed for recommendations -Patient's disposition for safe discharge discussed with high risk case manager Dictation performed by [employer] direct speech recognition software, therefore driving school instructor variants and typographical errors may occur. Hospitalist MIPS Advance Care Plan I have confirmed that the patient's Advanced Care Plan is present, code status is documented, or surrogate decision maker is listed in patient medical record.: Yes Medication Reconciliation I have utilized all available resources to obtain, update and review the patients current medications (includes all prescriptions, OTC, herbals, cannabis, and nutritional supplements).: Yes The patient is not eligible for med reconciliation; the patient is in a emergent medical situation where delaying treatment would jeopardize the patients healt h.: No
[2025-03-30] MEDS: BISACODYL 10 MG SUPPOSITORY RECTAL (17:49)
[2025-03-30] MEDS: AZITHROMYCIN 250 MG TABLET 500 MG PO (20:33)
[2025-03-30] MEDS: oxyBUTYnin CHLORIDE XL 5 MG TAB.ER.24 10 MG PO (20:34)
[2025-03-30] MEDS: ALPRAZolam (*CRX) 0.5 MG TABLET PO (20:34)
[2025-03-31] VITALS (12 sets, daily range): BP systolic 136–153; BP diastolic 53–64; PULSE 76–92; RESP 16–22; TEMP 36.3–36.9; O2SAT 93–96
[2025-03-31] MEDS: IPRATROPIUM 0.5 MG/ALBUTEROL SULFATE 2.5 MG AMPUL.NEB 3 ML INHALATION ×4 (02:45→20:16)
[2025-03-31] MEDS: GABAPENTIN 100 MG CAPSULE PO ×3 (05:25→21:05)
[2025-03-31] MEDS: LEVOTHYROXINE SODIUM 125 MCG TABLET PO (05:25)
[2025-03-31 05:31] LABS: Hematocrit 31.9 % (37.0-47.0); Hemoglobin 10.3 g/dL (12.0-15.0); Immature Granulocyte Percent A 1.3 % (0-0.5); Lymphocytes Absolute Auto 2.22 K/mm3 (0.9-3.2); Mean Corpuscular HGB Conc 32.3 g/dl (32-36); Mean Corpuscular Hemoglobin 29.3 pg (26-34); Mean Corpuscular Volume 90.6 fl (80-100); Nucleated Red Blood Cells Absolute Auto 0.000 K/mm3 (0.0-0.012); Nucleated Red Blood Cells Perc 0.0 % (0.0-0.2); Platelet Count Result 232 k/mm3 (150-375); Red Blood Count 3.52 M/mm3 (4.2-5.4); White Blood Count 9.4 K/mm3 (4.5-10.0)
[2025-03-31 05:57] LABS: Alanine Aminotransferase 11 U/L (6-35); Albumin Level 3.1 g/dL (3.5-5.1); Alkaline Phosphatase 77 U/L (38-126); Anion Gap 7 mmol/L (4-12); Aspartate Amino Transferase 26 U/L (14-36); Bilirubin,Total 0.4 mg/dL (0.2-1.3); Blood Urea Nitrogen 43 mg/dL (7-17); Calcium 8.5 mg/dL (8.4-10.2); Carbon Dioxide 20 mmol/L (22-30); Chloride 102 mmol/L (98-107); Estimated CRCL calculation 43 ml/min; Estimated Glomerular Filt Rate 46; Glucose 95 mg/dL (65-110); Magnesium 2.0 mg/dL (1.6-2.3); Potassium 4.3 mmol/L (3.4-5.0); Sodium 129 mmol/L (137-145); Total Protein 5.9 g/dL (6.3-8.2)
[2025-03-31] MEDS: ENOXAPARIN 40 MG/0.4 ML SYRINGE SUB-Q (08:54)
[2025-03-31] MEDS: ESCITALOPRAM OXALATE 5 MG TABLET PO (08:54)
[2025-03-31] MEDS: BENZONATATE 100 MG CAPSULE PO ×3 (08:54→17:28)
[2025-03-31] MEDS: guaiFENesin 12 HR 600 MG TABCR PO ×2 (08:54→21:05)
[2025-03-31] MEDS: ASPIRIN 81 MG ENTERIC TABLET PO (08:54)
[2025-03-31] MEDS: LOSARTAN POTASSIUM 100 MG TABLET PO (08:54)
[2025-03-31] MEDS: POTASSIUM CHLORIDE 20 MEQ ER TABLET PO (08:54)
[2025-03-31] MEDS: SIMVASTATIN 20 MG TABLET PO (08:54)
[2025-03-31] MEDS: INDAPAMIDE 2.5 MG TABLET PO (08:54)
--- NOTE | 2025-03-31 14:27 | P.PNIM_ITS ---
Progress Note: A&P Assessment and Plan (1) Pneumonia: Qualifiers: Laterality: bilateral Lung location: unspecified part of lung Pneumonia type: due to unspecified organism Qualified Code(s): J18.9 - Pneumonia, unspecified organism Code(s): J18.9 - Pneumonia, unspecified organism Status: Acute Assessment and Plan: CXR: Moderate-sized patchy opacities scattered throughout the left lung most prominent in the left lower lung. It addition, there are moderate sized patchy opacities in the right lower lung. Differential includes but is not limited to edema or pneumonia. Recommend follow-up to resolution. Consider a chest CT for further assessment. Chest CT: Probable left lower lobe bronchopneumonia. Follow- up is suggested to assess resolution. Viral panel negative, MRSA negative. WBC with uptrend but likely secondary to receiving methylprednisone.WBC downtrended to 11 03/30/2025 * Ceftriaxone and doxycycline transitioned Augmentin and Azithromycin * Blood cultures NGTD * Mucinex * Tessalon Perles * DuoNebs * Tylenol * No longer requiring supplemental oxygen * Incentive spirometer (2) Hypothyroidism: Qualifiers: Hypothyroidism type: unspecified Qualified Code(s): E03.9 - Hypothyroidism, unspecified Code(s): E03.9 - Hypothyroidism, unspecified Status: Acute Assessment and Plan: * continue home Synthroid (3) Essential hypertension: Code(s): I10 - Essential (primary) hypertension Status: Acute Assessment and Plan: * continue home medications: Amlodipine, indapamide, losartan * Monitor per unit protocol (4) Hyperglycemia: Code(s): R73.9 - Hyperglycemia, unspecified Status: Acute Assessment and Plan: Patient with glucose as high as 203 no history of diabetes * A1c 5.9 * Patient can follow-up with her primary outpatient for 3-6 month A1c check (5) Acute kidney injury: Code(s): N17.9 - Acute kidney failure, unspecified Status: Acute Assessment and Plan: No previous HX of CKD likely secondary to dehydration but patient with poor urinary output. * Bladder scan PRN * Avoid nephrotoxic drugs. * Monitor antihypertensive drug therapy. * Avoid NSAIDs. * Routine CMP monitoring GFR. * Monitor electrolytes especially potassium. (6) Sepsis: Qualifiers: Sepsis type: sepsis due to unspecified organism Sepsis acute organ dysfunction status: without acute organ dysfunction Qualified Code(s): A41.9 - Sepsis, unspecified organism Code(s): A41.9 - Sepsis, unspecified organism Status: Resolved Assessment and Plan: meets SIRS criteria: HR >90, RR >20, WBC greater than 12. Lactic 1.2 Now has fever of 100.2? F. was given 3.6 L in ED. Likely secondary to Pneumonia * ceftriaxone and doxycycline transitioned to oral Augmentin and Azithromycin * blood cultures pending NGTD Q48hrs * monitor hemodynamic stability * Resolved (7) Pulmonary edema: Code(s): J81.1 - Chronic pulmonary edema Status: Ruled-out Assessment and Plan: Patient with bibasliar crackles L>R no HX of CHF but BNP elevated on admission and continues to need supplemental oxygen * F/U CXR unchanged * repeat BNP mildly elevated * Echo LVEF 60-65% L Plan Code status: Full code per patient DVT prophylaxis: Lovenox Stress ulcer prophylaxis: NA PT/OT notes: PT/OT pending Disposition: Patient was admitted to the medical unit for further evaluation and treatment pneumonia with sepsis will continue with current treatment changed to oral ABX and wean oxygen PT/OT for evaluation plan for discharge to home with home health Time Spent With Patient Time with patient: 15 - 25 minutes Subjective Date/time seen: 03/31/25 14:28 Interval history: Patient is an 81-year-old female admitted to the medical unit for further evaluation treatment of acute respiratory with hypoxia secondary to sepsis with pneumonia. 03/31/2025: Patient level monitor. No longer requiring supplemental oxygen. Patient reports breathing improved with ambulation however mild conversational dyspnea. Review of Systems Review of Systems: All systems reviewed & are unremarkable except as noted in HPI and below Exam Const: General: comfortable and no acute distress Other: , female, elderly, ill-appearing, obese body habitus HENMT: Face/Nose/Sinus: Normal nares present Mouth: Yes moist mucous membranes Eyes: General: appearance normal, both eyes and all related structures Sclera: sclerae normal Pupils: Equal, round and reactive pupils present EOM: EOMs intact bilaterally Resp: Effort & Inspection: abnormal respiratory pattern, Actively coughing, tachypneic and uses accessory muscles Auscultation: wheezes (moderate) scattered wheezes and diminished lung sounds bilateral throughout Other: Bibasilar crackles, L>R. Scattered wheezing, faint. Cardio: Rate: tachycardic (Mild, 115) Rhythm: regular rhythm Other: S1-S2 present without murmur, rub, ectopy GI: Other: Abdomen soft, nondistended, nontender. Normoactive bowel sounds in all quadrants. Skin: General skin exam: normal color and no rashes or lesions noted Wounds: no wounds Neuro: Cranial nerves: Yes Equal, round and reactive pupils present Speech: normal speech Motor exam (neuro): 5/5 motor strength present throughout Sensory Exam: normal sensation Other: A&O x4 Extrem: General: normal to inspection Psych: Mental Status: mental status grossly normal Affect: normal affect Other: Good insight and judgment, very pleasant Objective Data Vital Signs Vital Signs: Vital Signs - 24 hr 03/30/25 16:00 03/30/25 20:00 03/30/25 20:00 Temperature 97.9 F 97.8 F Pulse Rate 83 96 96 Respiratory Rate 18 24 H 24 H Blood Pressure 126/58 L 159/58 H Pulse Oximetry 100 97 97 Oxygen Delivery Nasal Cannula Oxygen Flow Rate 1 Fraction of Inspired Oxygen 03/30/25 21:08 03/30/25 21:27 03/30/25 21:28 Temperature Pulse Rate 82 82 79 Respiratory Rate 20 20 Blood Pressure Pulse Oximetry 94 Oxygen Delivery Nasal Cannula Oxygen Flow Rate 1 Fraction of Inspired Oxygen 03/31/25 02:45 03/31/25 02:53 03/31/25 05:29 Temperature 97.3 F L Pulse Rate 84 81 86 Respiratory Rate 20 20 22 H Blood Pressure 137/53 L Pulse Oximetry 93 Oxygen Delivery Oxygen Flow Rate Fraction of Inspired Oxygen 03/31/25 08:00 03/31/25 08:38 03/31/25 08:38 Temperature Pulse Rate 87 85 85 Respiratory Rate 20 20 20 Blood Pressure Pulse Oximetry 96 96 Oxygen Delivery Room Air Room Air Oxygen Flow Rate Fraction of Inspired Oxygen 36 03/31/25 08:46 03/31/25 13:51 03/31/25 13:51 Temperature Pulse Rate 87 80 80 Respiratory Rate 20 20 20 Blood Pressure Pulse Oximetry 96 Oxygen Delivery Room Air Oxygen Flow Rate Fraction of Inspired Oxygen 03/31/25 13:58 Temperature Pulse Rate 76 Respiratory Rate 20 Blood Pressure Pulse Oximetry Oxygen Delivery Oxygen Flow Rate Fraction of Inspired Oxygen Intake/Output Intake/Output: Intake & Output 03/28/25 03/29/25 03/30/25 03/31/25 23:59 23:59 23:59 23:59 Intake Total 2060 2530 3500 350 Output Total 40 450 700 300 Balance 20190 2800 50 Meds/Results Medications: Active Medications Generic Name Dose Route Start Last Admin Trade Name Freq PRN Reason Stop Dose Admin Acetaminophen 650 mg 03/27/25 18:52 Acetaminophen 325 Mg Tablet PO Q4H PRN Mild Pain (1-3) or Fever Hydrocodone Bitart/Acetaminophen 1 tab 03/27/25 18:52 Hydrocodone/Acetaminophen (*Crx) 5-325 Mg Tablet PO Q4H PRN Moderate Pain (4-6) Albuterol/Ipratropium 3 ml 03/28/25 14:00 03/31/25 13:50 Ipratropium 0.5 Mg/Albuterol Sulfate 2.5 Mg Ampul.Neb 3 Ml INHALATION 3 ml Q6HRT GAUATM Administration Alprazolam 0.5 mg 03/28/25 21:00 03/30/25 20:34 Alprazolam (*Crx) 0.5 Mg Tablet PO 0.5 mg HS GAUTAM Administration Amlodipine Besylate 5 mg 03/28/25 09:00 03/31/25 08:54 Amlodipine Besylate 5 Mg Tablet PO 5 mg DAILY GAUTAM Administration Amoxicillin/Clavulanate Potassium 1 tablet 03/30/25 19:00 03/31/25 08:54 Amoxicillin/Clavulanate K 875-125 Mg Tab PO 04/03/25 09:01 1 tablet Q12HR GAUTAM Administration Aspirin 81 mg 03/28/25 09:00 03/31/25 08:54 Aspirin 81 Mg Enteric Tablet PO 81 mg QAM GAUTAM Administration Azithromycin 500 mg 03/30/25 21:00 03/30/25 20:33 Azithromycin 250 Mg Tablet PO 03/31/25 21:01 500 mg QHS GAUTAM Administration Benzonatate 100 mg 03/28/25 09:00 03/31/25 08:54 Benzonatate 100 Mg Capsule PO 100 mg TID GAUTAM Administration Bisacodyl 10 mg 03/27/25 18:52 Bisacodyl 10 Mg Suppository RECTAL ONCE PRN Constipation Enoxaparin Sodium 40 mg 03/28/25 09:00 03/31/25 08:54 Enoxaparin 40 Mg/0.4 Ml Syringe SUB-Q 40 mg DAILY GAUTAM Administration Escitalopram Oxalate 5 mg 03/28/25 09:00 03/31/25 08:54 Escitalopram Oxalate 5 Mg Tablet PO 5 mg DAILY GAUTAM Administration Gabapentin 100 mg 03/27/25 22:40 03/31/25 05:25 Gabapentin 100 Mg Capsule PO 100 mg Q8HR GAUTAM Administration Guaifenesin 600 mg 03/27/25 21:00 03/31/25 08:54 Guaifenesin 12 Hr 600 Mg Tabcr PO 600 mg Q12HR GAUTAM Administration Indapamide 2.5 mg 03/28/25 09:00 03/31/25 08:54 Indapamide 2.5 Mg Tablet PO 2.5 mg DAILY GAUTAM Administration Levothyroxine Sodium 125 mcg 03/28/25 06:30 03/31/25 05:25 Levothyroxine Sodium 125 Mcg Tablet PO 125 mcg DAILY@0630 GAUTAM Administration Losartan Potassium 100 mg 03/28/25 09:00 03/31/25 08:54 Losartan Potassium 100 Mg Tablet PO 100 mg DAILY GAUTAM Administration Meclizine HCl 25 mg 03/27/25 22:37 Meclizine Hcl 25 Mg Tablet PO TID PRN Vertigo Ondansetron HCl 4 mg 03/27/25 18:52 Ondansetron Inj 4 Mg/2 Ml Vial IV PUSH Q6H PRN Nausea And Vomiting Oxybutynin Chloride 10 mg 03/27/25 23:00 03/30/25 20:34 Oxybutynin Chloride Xl 5 Mg Tab.Er.24 PO 10 mg HS GAUTAM Administration Perflutren Lipid Microsphere 0 ml 03/29/25 14:37 Perflutren Lipid Microspheres 1.5 Ml Vial Diluted To 10 Ml Total Volume IV PUSH 04/01/25 14:39 ONCE PRN adequate visualization Protocol Potassium Chloride 20 meq 03/28/25 09:00 03/31/25 08:54 Potassium Chloride 20 Meq Er Tablet PO 20 meq DAILY GAUTAM Administration Simvastatin 20 mg 03/28/25 09:00 03/31/25 08:54 Simvastatin 20 Mg Tablet PO 20 mg DAILY GAUTAM Administration Radiology Results: ITS Impressions Chest CT 03/27/25 17:57 IMPRESSION: Probable left lower lobe bronchopneumonia. Follow-up is suggested to assess resolution.. Chest X-Ray 03/29/25 15:41 IMPRESSION: 1: Grossly stable moderate-sized patchy opacities scattered throughout the left lung with prominent in the left lower lung. Recommend follow-up to resolution. 2. Grossly stable moderate-sized opacities in the right lower lung. Recommend follow-up to resolution. Labs Labs: Laboratory Results - last 24 hr 03/31/25 04:45 WBC 9.4 RBC 3.52 L Hgb 10.3 L Hct 31.9 L MCV 90.6 MCH 29.3 MCHC 32.3 RDW 13.9 Plt Count 232 MPV 11.1 H Immature Gran % (Auto) 1.3 H Neut % (Auto) 61.3 Lymph % (Auto) 23.6 Baker % (Auto) 10.8 H Eos % (Auto) 2.6 Baso % (Auto) 0.4 Lymph # (Auto) 2.22 [place] # (Auto) 1.0 H Eos # (Auto) 0.2 Baso # (Auto) 0.0 Abs Immat Gran (auto) 0.12 H Absolute Neuts (auto) 5.8 Absolute Nucleated RBC 0.000 Nucleated RBC % 0.0 Sodium 129 L Potassium 4.3 Chloride 102 Carbon Dioxide 20 L Anion Gap 7 BUN 43 H Creatinine 1.11 H Estim Creat Clear Calc 43 Estimated GFR 46 L Glucose 95 Calcium 8.5 Magnesium 2.0 Total Bilirubin 0.4 AST 26 ALT 11 Alkaline Phosphatase 77 Total Protein 5.9 L Albumin 3.1 L Quality VTE Prophylaxis VTE prophylaxis: pharmacologic ordered -Patient's previous records reviewed on admission -ER notes reviewed in detail on admission -discussed all findings and current treatment plan with patient/Family/POA -Consultations reviewed for recommendations -Patient's disposition for safe discharge discussed with caser up Dictation performed by [employer] direct speech recognition software, therefore rn research variants and typographical errors may occur. Hospitalist MIPS Advance Care Plan I have confirmed that the patient's Advanced Care Plan is present, code status is documented, or surrogate decision maker is listed in patient medical record.: Yes Medication Reconciliation I have utilized all available resources to obtain, update and review the patients current medications (includes all prescriptions, OTC, herbals, cannabis, and nutritional supplements).: Yes The patient is not eligible for med reconciliation; the patient is in a emergent medical situation where delaying treatment would jeopardize the patients health.: No
[2025-03-31] MEDS: AZITHROMYCIN 250 MG TABLET 500 MG PO (21:05)
[2025-03-31] MEDS: oxyBUTYnin CHLORIDE XL 5 MG TAB.ER.24 10 MG PO (21:05)
[2025-03-31] MEDS: ALPRAZolam (*CRX) 0.5 MG TABLET PO (21:05)
[2025-04-01 02:29] VITALS: PULSE 88
[2025-04-01] MEDS: IPRATROPIUM 0.5 MG/ALBUTEROL SULFATE 2.5 MG AMPUL.NEB 3 ML INHALATION ×2 (02:29→09:02)
[2025-04-01 05:49] LABS: Hematocrit 33.7 % (37.0-47.0); Hemoglobin 10.7 g/dL (12.0-15.0); Immature Granulocyte Percent A 2.9 % (0-0.5); Lymphocytes Absolute Auto 2.36 K/mm3 (0.9-3.2); Mean Corpuscular HGB Conc 31.8 g/dl (32-36); Mean Corpuscular Hemoglobin 29.5 pg (26-34); Mean Corpuscular Volume 92.8 fl (80-100); Nucleated Red Blood Cells Absolute Auto 0.000 K/mm3 (0.0-0.012); Nucleated Red Blood Cells Perc 0.0 % (0.0-0.2); Platelet Count Result 246 k/mm3 (150-375); Red Blood Count 3.63 M/mm3 (4.2-5.4); White Blood Count 10.9 K/mm3 (4.5-10.0)
[2025-04-01 05:58] VITALS: BP 122/55; PULSE 82; RESP 18; O2SAT 92
[2025-04-01] MEDS: GABAPENTIN 100 MG CAPSULE PO ×2 (05:58→13:39)
[2025-04-01] MEDS: LEVOTHYROXINE SODIUM 125 MCG TABLET PO (05:58)
[2025-04-01 06:21] LABS: Alanine Aminotransferase 11 U/L (6-35); Albumin Level 3.0 g/dL (3.5-5.1); Alkaline Phosphatase 72 U/L (38-126); Anion Gap 7 mmol/L (4-12); Aspartate Amino Transferase 16 U/L (14-36); Bilirubin,Total 0.6 mg/dL (0.2-1.3); Blood Urea Nitrogen 35 mg/dL (7-17); Calcium 8.6 mg/dL (8.4-10.2); Carbon Dioxide 20 mmol/L (22-30); Chloride 102 mmol/L (98-107); Estimated CRCL calculation 46 ml/min; Estimated Glomerular Filt Rate 51; Glucose 100 mg/dL (65-110); Magnesium 2.0 mg/dL (1.6-2.3); Potassium 4.6 mmol/L (3.4-5.0); Sodium 129 mmol/L (137-145); Total Protein 5.8 g/dL (6.3-8.2)
[2025-04-01] MEDS: INDAPAMIDE 2.5 MG TABLET PO (08:49)
[2025-04-01] MEDS: SIMVASTATIN 20 MG TABLET PO (08:49)
[2025-04-01] MEDS: LOSARTAN POTASSIUM 100 MG TABLET PO (08:49)
[2025-04-01] MEDS: ESCITALOPRAM OXALATE 5 MG TABLET PO (08:50)
[2025-04-01] MEDS: POTASSIUM CHLORIDE 20 MEQ ER TABLET PO (08:50)
[2025-04-01] MEDS: guaiFENesin 12 HR 600 MG TABCR PO (08:50)
[2025-04-01] MEDS: ASPIRIN 81 MG ENTERIC TABLET PO (08:50)
[2025-04-01] MEDS: BENZONATATE 100 MG CAPSULE PO ×2 (08:50→13:39)
[2025-04-01] MEDS: ENOXAPARIN 40 MG/0.4 ML SYRINGE SUB-Q (08:51)
[2025-04-01 09:02] VITALS: PULSE 82; PULSE 84; RESP 17; O2SAT 94
--- NOTE | 2025-04-01 12:59 | P.DS_ITS ---
DS: Admitting Diagnosis Discharge Date 04/01/2025 Admitting Diagnosis Sepsis/pneumonia/OLI DS: Discharge Diagnosis Discharge Diagnosis (1) Pneumonia: Qualifiers: Laterality: bilateral Lung location: unspecified part of lung Pneumonia type: due to unspecified organism Qualified Code(s): J18.9 - Pneumonia, unspecified organism Code(s): J18.9 - Pneumonia, unspecified organism Status: Acute (2) Hypothyroidism: Qualifiers: Hypothyroidism type: unspecified Qualified Code(s): E03.9 - Hypothyroidism, unspecified Code(s): E03.9 - Hypothyroidism, unspecified Status: Acute (3) Essential hypertension: Code(s): I10 - Essential (primary) hypertension Status: Acute (4) Hyperglycemia: Code(s): R73.9 - Hyperglycemia, unspecified Status: Acute (5) Acute kidney injury: Code(s): N17.9 - Acute kidney failure, unspecified Status: Acute (6) Sepsis: Qualifiers: Sepsis type: sepsis due to unspecified organism Sepsis acute organ dysfunction status: without acute organ dysfunction Qualified Code(s): A41.9 - Sepsis, unspecified organism Code(s): A41.9 - Sepsis, unspecified organism Status: Resolved (7) Pulmonary edema: Code(s): J81.1 - Chronic pulmonary edema Status: Ruled-out DS: Summary Hospital Course Reason for hospitalization: Sepsis/pneumonia/OLI Hospital Course: Admission: Patient was a 89 y/o F with PMH of hypothyroidism, hyperlipidemia, pulmonary embolism, anxiety, and hypertension presents here with shortness of breath. The patient had presented here from home for further evaluation of shortness of breath on 03/27. She reports onset of shortness of breath this past Wednesday, 03/25. It is accompanied by a dry cough that she describes as croup-like. Additionally reporting fever, chills, body aches, and chest pain. She reports the chest pain has been occurring at rest and worsens with a cough. She denies any associated nausea, vomiting, and diarrhea, diaphoresis. Of note, she was recently admitted for similar symptoms from 02/20 - 02/21. At that time she had reported shortness of breath that had not improved with a Z-Jose Angel and Tessalon Perles. She had been wheezing on and off for 6 months to a year. At that time she a pulmonary embolism was ruled out, she has a history of a pulmonary embolism and completed treatment this past September. In the ED: Initial VS at presentation: 98.5? F, HR 115, R 25, 94% on room air. Now on 4 L nasal cannula and satting anywhere between 93 and 96%, work of breathing improved. ED workup showed: WBC 16.5, no anemia, INR 1.2, creatinine 1.48 and GFR 33, glucose 120, lactic 1.2, initial troponin 0.032, and BNP 1460. Hospital Course: Patient was admitted to the medical unit and treated for sepsis secondary to pneumonia and OLI. Patient at time of admit met SIRS criteria: HR >90, RR >20, WBC greater than 12. Lactic 1.2 Now has fever of 100.2? F. was given 3.6 L in ED. CXR: Moderate-sized patchy opacities scattered throughout the left lung most prominent in the left lower lung. It addition, there are moderate sized patchy opacities in the right lower lung. Chest CT: Probable left lower lobe bronchopneumonia. Viral panel was negative and MRSA negative. WBC had uptrended but likely secondary to receiving methylprednisone.WBC downtrended to 11 025 and was WNL at time of discharge. Patient was treated with IV Rocephin and doxycycline in transition to oral Augmentin and azithromycin. She continued treatment with Mucinex, Tessalon Perles, DuoNebs and supplemental oxygen for comfort well as incentive spirometer. Patient had moderate to severe dyspnea with exertion and activity which improved overall with treatment. PT/OT was ordered for evaluation recommended home with home health. Patient was tolerate ambulation without oxygen and productive cough had resolved. She was seen and assessed time of discharge in no acute distress or with new complaints reported she was feeling close to her baseline. Patient and daughter at bedside updated on discharge plan and acknowledge and agreed with discharge plan. Status at Discharge Functional status at discharge: independent ambulation Overall status at discharge: patient is back to baseline Time Spent with Patient Time attestation: Total time spent providing and/or coordinating discharge services: Time spent: Greater than 30 minutes Exam Const: General: comfortable and no acute distress Other: , female, elderly, ill-appearing, obese body habitus HENMT: Face/Nose/Sinus: Normal nares present Mouth: Yes moist mucous membranes Eyes: General: appearance normal, both eyes and all related structures Sclera: sclerae normal Pupils: Equal, round and reactive pupils present EOM: EOMs intact bilaterally Resp: Effort & Inspection: abnormal respiratory pattern, Actively coughing, tachypneic and uses accessory muscles Auscultation: wheezes (moderate) scattered wheezes and diminished lung sounds bilateral throughout Other: Bibasilar crackles, L>R. Scattered wheezing, faint. Cardio: Rate: tachycardic (Mild, 115) Rhythm: regular rhythm Other: S1-S2 present without murmur, rub, ectopy GI: Other: Abdomen soft, nondistended, nontender. Normoactive bowel sounds in all quadrants. Skin: General skin exam: normal color and no rashes or lesions noted Wounds: no wounds Neuro: Cranial nerves: Yes Equal, round and reactive pupils present Speech: normal speech Motor exam (neuro): 5/5 motor strength present throughout Sensory Exam: normal sensation Other: A&O x4 Extrem: General: normal to inspection Psych: Mental Status: mental status grossly normal Affect: normal affect Other: Good insight and judgment, very pleasant DS: Data Data Completed and Pending Labs on day of discharge: Labs from last 24 hours 04/01/25 05:11 WBC 10.9 H RBC 3.63 L Hgb 10.7 L Hct 33.7 L MCV 92.8 MCH 29.5 MCHC 31.8 L RDW 13.6 Plt Count 246 MPV 10.8 H Immature Gran % (Auto) 2.9 H Neut % (Auto) 60.5 Lymph % (Auto) 21.7 [place] % (Auto) 12.1 H Eos % (Auto) 2.0 Baso % (Auto) 0.8 Lymph # (Auto) 2.36 [place] # (Auto) 1.3 H Eos # (Auto) 0.2 Baso # (Auto) 0.1 Abs Immat Gran (auto) 0.32 H Absolute Neuts (auto) 6.6 Absolute Nucleated RBC 0.000 Nucleated RBC % 0.0 Sodium 129 L Potassium 4.6 Chloride 102 Carbon Dioxide 20 L Anion Gap 7 BUN 35 H Creatinine 1.02 H Estim Creat Clear Calc 46 Estimated GFR 51 L Glucose 100 Calcium 8.6 Magnesium 2.0 Total Bilirubin 0.6 AST 16 ALT 11 Alkaline Phosphatase 72 Total Protein 5.8 L Albumin 3.0 L Preliminary micro results at discharge 03/27/25 18:12 Blood Culture - Preliminary Blood 03/27/25 18:12 Blood Culture - Preliminary Blood Imaging Radiologist's impression: Radiology Results: ITS Impressions Chest CT 03/27/25 17:57 IMPRESSION: Probable left lower lobe bronchopneumonia. Follow-up is suggested to assess resolution.. Chest X-Ray 03/29/25 15:41 IMPRESSION: 1: Grossly stable moderate-sized patchy opacities scattered throughout the left lung with prominent in the left lower lung. Recommend follow-up to resolution. 2. Grossly stable moderate-sized opacities in the right lower lung. Recommend follow-up to resolution. Discharge Plan Discharge Attending physician on discharge: Mj Suazo Consulting providers: Leila Kc Discharging Clinician: Leila Kc Anticipated Discharge Date/Time: 04/01/25 13:09 Patient Disposition: Home with Home Health Service Activity: may shower and as tolerated Diet: heart healthy Discharge Instructions: 1). Weakness/instability * Care Coordination: Patient to have [facility] for PT/OT eval and treat, and shelter. Their phone number is [phone], if you have any questions; they will contact you to schedule their visits. RN Please fax discharge instructions to [phone]. 2). Pneumonia * Oral antibiotic has been prescribed please take as indicated and complete even if feeling better * continue to use your incentive spirometer at home * May use DuoNebs as needed for shortness of breath and wheezing * May use [id number] Mucinex thick secretions. How can you care for yourself at home? ? Keep track of any new symptoms or changes in your symptoms. ? Rest until you feel better. ? Be safe with medicines. Take your medicines exactly as prescribed. Call your doctor if you think you are having a problem with your medicine. ? Do not drive after taking a prescription pain medicine. ? Ensure to follow-up with primary care physician as indicated and provide updated medication list provided to you at discharge. When should you call for help? Call 911 anytime you think you may need emergency care. For example, call if: ? You passed out (lost consciousness). Call your doctor now or seek immediate medical care if: ? You have new symptoms like fever, difficulty breathing, Chest pain, vomiting, or rash. ? You have new or different pain. ? You are confused and are having trouble thinking clearly. ? Your symptoms are getting worse. Watch closely for changes in your health, and be sure to contact your doctor if: ? You do not get better as expected. Patient Instructions: Antibiotic Form, Community Acquired Pneumonia (DC), Bacterial Pneumonia (DC) Patient Language: Occitan Stand Alone Forms: General Discharge Information Follow-up/Referrals: Kalia,Chris Aguiar MD [Primary Care Provider] - 2 Weeks Discharge Medications: New amoxicillin-pot clavulanate 875-125 mg tablet 1 tablet PO Q12H Qty: 4 0RF Continued oxybutynin chloride 10 mg Tablet Extended Release 24hr 10 mg PO HS indapamide 2.5 mg Tablet 2.5 mg PO DAILY amlodipine 5 mg Tablet 5 mg PO DAILY alprazolam 0.5 mg Tablet 0.5 mg PO HS meclizine 25 mg Tablet 25 mg PO TID PRN (Reason: Vertigo) simvastatin 20 mg Tablet 20 mg PO DAILY levothyroxine 125 mcg Tablet 125 mcg PO DAILY losartan 100 mg Tablet 100 mg PO DAILY escitalopram oxalate 5 mg Tablet 5 mg PO DAILY potassium chloride 20 mEq Tablet Extended Release 20 meq PO DAILY aspirin 81 mg Capsule 81 mg PO DAILY ipratropium-albuterol 0.5 mg-3 mg(2.5 mg base)/3 mL solution for nebulization 3 ml inhalation QID PRN (Reason: shortness of breath or wheezing) Qty: 90 0RF gabapentin 100 mg capsule 100 mg PO Q8H albuterol sulfate [Ventolin HFA] 90 mcg/actuation HFA aerosol inhaler 1 inh inhalation QID PRN (Reason: shortness of breath or wheezing) Qty: 8.5 0RF (DME) nebulizer and compressor Device See Rx Instructions .ROUTE .MEDSUPPLY Qty: 1 0RF Rx Instructions: As directed Date of admission: 03/27/25 18:34 Primary Care Provider: Bela*Chris Admitting Provider: Davide Flanagan Attending physician on admission: Davide Flanagan Condition: Stable Quality VTE Prophylaxis VTE prophylaxis: pharmacologic ordered -Patient's previous records reviewed on admission -ER notes reviewed in detail on admission -discussed all findings and current treatment plan with patient/Family/POA -Consultations reviewed for recommendations -Patient's disposition for safe discharge discussed with manager of case Dictation performed by [employer] direct speech recognition software, therefore income tax preparer variants and typographical errors may occur. Hospitalist MIPS Heart Failure (Exclusion) Patient has history of Heart Transplant or Left Ventricular Assistive Device?: No IF YES, STOP HERE Heart Failure (Qualifier) Patient has current or prior documentation of LVEF less than or equal to 40%, or mod/servere depressed LVSF?: No IF NO, STOP HERE
== END 2025-04-01 14:07 | disposition home health service (06) | DRG 871 ==
LOC: ANHED 19:27 → ANH3MEDSUR 19:28 → ANH3MED 19:45
PROVIDERS: Student in an Organized Health Care Education/Training Program; Admitting Provider Internal Medicine; Emergency Provider Student in an Organized Health Care Education/Training Program; PCP Internal Medicine; Visit Provider Nurse Practitioner Family
DX: A41.9 Sepsis, unspecified organism (principal); J18.9 Pneumonia, unspecified organism; J96.01 Acute respiratory failure with hypoxia; N17.9 Acute kidney failure, unspecified; E03.9 Hypothyroidism, unspecified; I10 Essential (primary) hypertension; R73.9 Hyperglycemia, unspecified; E78.5 Hyperlipidemia, unspecified; M51.26 Other intervertebral disc displacement, lumbar region; F41.9 Anxiety disorder, unspecified; Z20.822 Contact with and (suspected) exposure to COVID-19; Z79.51 Long term (current) use of inhaled steroids; Z79.82 Long term (current) use of aspirin; Z79.899 Other long term (current) drug therapy; Z86.711 Personal history of pulmonary embolism; Z90.49 Acquired absence of other specified parts of digestive tract; Z96.1 Presence of intraocular lens; Z98.42 Cataract extraction status, left eye; Z98.41 Cataract extraction status, right eye
CPT/HCPCS: 36415; 71045; 71250; 80048; 80053; 81001; 83036; 83605; 83735; 83880; 84484; 85025; 85610; 85730; 87040; 87637; 87641; 93005; 93306; 94640; 96365; 96367; 96375; 97110; 97116; 97162; 97166; 99285; A9270; J0696; J1650; J2919; J7030; J7120

== ENCOUNTER 2025-07-15 10:51 | Inpatient (IN) | payer MEDICARE, SELFPAY ==
[2025-07-15] VITALS (23 sets, daily range): BP systolic 104–161; BP diastolic 47–127; PULSE 70–96; RESP 14–36; TEMP 36.4–37.4; O2SAT 91–100; BMI 40.8
--- NOTE | ~2025-07-15 | CT_ITS ---
CTA CHEST CLINICAL HISTORY: h/o PE; ELIZABETH with O2 92% . COMPARISON: Chest x-ray 03/29/2025 CTA chest 02/19/2025 TECHNIQUE: Helical CTA performed from thoracic inlet to upper abdomen IV contrast information not listed in PACS Coronal, sagittal reformats. Multiplanar MIPS CT images acquired with automatic exposure control for dose reduction DLP: 1045 mGy-cm FINDINGS: Respiratory motion artifact could obscure abnormality. Pulmonary arteries: No PE identified. Thoracic Aorta: No dissection or aneurysm. Atherosclerotic disease. Heart/pericardium: Unremarkable. RV/LV ratio: Normal. Lungs/Pleura: Small scattered bilateral patchy foci airspace disease. Tracheobronchial tree: Patent. Nodes: No enlarged nodes. Bones: No acute bony abnormality. Soft tissues: Unremarkable. Visualized upper abdomen: Hepatomegaly, with steatosis. Cholecystectomy. IMPRESSION: 1. No PE identified given motion artifact. 2. Bilateral multifocal pneumonia. Reviewed, dictated and finalized at location R. NT ENGAGEMENT SPECIALIST
--- NOTE | 2025-07-15 11:04 | ECG_ITS ---
Test Date: 2025-07-15 11:10:50 Measurements Intervals [place] Rate: 86 P: 0 MO: 0 QRS: 63 QRSD: 89 T: 50 QT: 351 QTc: 421 Interpretive Statements SINUS WITH FIRST DEGREE AV BLOCK BORDERLINE ST ABNORMALITY- LATERAL LEADS BASELINE ARTIFACT- I, II, III, AVR, AVL, AVF, V1-V6 BORDERLINE ECG Compared to ECG 03/27/2025 16:37:53 HEART RATE HAS DECREASED Electronically Signed On 07-15-2025 15:38:03 [employer] WALL FINISHER by Paulie Brush D.O.
[2025-07-15 11:23] LABS: Hematocrit 37.2 % (37.0-47.0); Hemoglobin 12.4 g/dL (12.0-15.0); Immature Granulocyte Percent A 0.6 % (0-0.5); Lymphocytes Absolute Auto 1.26 K/mm3 (0.9-3.2); Mean Corpuscular HGB Conc 33.3 g/dl (32-36); Mean Corpuscular Hemoglobin 30.0 pg (26-34); Mean Corpuscular Volume 89.9 fl (80-100); Nucleated Red Blood Cells Absolute Auto 0.000 K/mm3 (0.0-0.012); Nucleated Red Blood Cells Perc 0.0 % (0.0-0.2); Platelet Count Result 257 k/mm3 (150-375); Red Blood Count 4.14 M/mm3 (4.2-5.4); White Blood Count 14.4 K/mm3 (4.5-10.0)
[2025-07-15] MEDS: IPRATROPIUM BR 0.02% INH SOLN 0.5 MG/2.5 ML VIAL 1 MG INHALATION (11:27)
[2025-07-15] MEDS: ALBUTEROL SULFATE NEB 2.5 MG/3 ML INH 10 MG INHALATION (11:27)
--- OUTSIDE RECORDS SUMMARY | 2025-07-15 11:27 | XMS_ITS | Clinical Summary ---
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
[2025-07-15] MEDS: AZITHROMYCIN 500 MG TABLET PO (11:36)
[2025-07-15] MEDS: cefTRIAXone 1 GM in SODIUM CHLORIDE 0.9% IV 50 ML 100 ML IVPB (11:37)
[2025-07-15 11:49] LABS: Alanine Aminotransferase 15 U/L (6-35); Albumin Level 4.2 g/dL (3.5-5.1); Alkaline Phosphatase 89 U/L (38-126); Anion Gap 9 mmol/L (4-12); Aspartate Amino Transferase 23 U/L (14-36); Bilirubin,Total 1.1 mg/dL (0.2-1.3); Blood Urea Nitrogen 22 mg/dL (7-17); Calcium 8.8 mg/dL (8.4-10.2); Carbon Dioxide 20 mmol/L (22-30); Chloride 101 mmol/L (98-107); Estimated Glomerular Filt Rate 46; Glucose 126 mg/dL (65-110); Potassium 4.2 mmol/L (3.4-5.0); Sodium 130 mmol/L (137-145); Total Protein 7.8 g/dL (6.3-8.2)
[2025-07-15 12:00] LABS: Troponin I 0.222 ng/mL (0.000-0.034)
[2025-07-15 12:04] LABS: INR 1.3; Prothrombin Time 15.9 Seconds (11.1-14.7)
[2025-07-15 12:05] LABS: Partial Thromboplastin Time 35.9 Seconds (22.3-36.8)
--- NOTE | 2025-07-15 14:18 | WPCEDHO ---
ED Hand Off Checklist All vitals saved:yes IV Site documented:yes All med administrations documented:yes Triage Note Triage Note PT TO ED FOR EVAL OF INCREASING 07/15/25 10:52 SHORTNESS OF BREATH OVER PAST FEW DAYS. +COUGH,CONGESTION HX OF PNEUMONIA Allergies levofloxacin (From Levaquin) Allergy (Intermediate, Verified 07/15/25 10:51) Rash Family History (Last Reviewed 03/27/25 @ 22:36 by Melissa Skinner, [employer]) Father Acute myocardial infarction Mother Cerebrovascular accident Sibling Heart disease Administered/Completed Medications Discontinued Medications Albuterol (Albuterol Sulfate Neb 2.5 Mg/3 Ml Inh) 10 mg INHALATION ONCE STA Stop: 07/15/25 11:11 Last Admin: 07/15/25 11:27 Dose: 10 mg Documented By: RES Azithromycin (Azithromycin 500 Mg Tablet) 500 mg PO ONCE STA Stop: 07/15/25 11:29 Last Admin: 07/15/25 11:36 Dose: 500 mg Documented By: ANT Ceftriaxone Sodium 1 gm/ (Sodium Chloride) 50 mls @ 100 mls/hr IVPB ONCE STA Stop: 07/15/25 11:57 Last Infusion: 07/15/25 12:09 Dose: Infused Documented By: Admin: 07/15/25 11:37 Dose: 100 mls/hr Documented By: ANT Ipratropium [place] (Ipratropium Br 0.02% Inh Soln 0.5 Mg/2.5 Ml Vial) 1 mg INHALATION ONCE ONE Stop: 07/15/25 11:11 Last Admin: 07/15/25 11:27 Dose: 1 mg Documented By: RES Methylprednisolone Sodium Succinate (Methylprednisolone Sod Succ 125 Mg Vial) 80 mg IV PUSH ONCE STA Stop: 07/15/25 11:10 Last Admin: 07/15/25 11:14 Dose: 80 mg Documented By: ANT Interventions/Assessments IV / Saline Lock, Insert Start: 07/15/25 11:04 Freq: STAT Status: Active Protocol: Document 07/15/25 11:13 ANT (Rec: 07/15/25 11:13 ANT [id number]) IV Assessment Peripheral Access Right Antecubital IV Catheter Access Initiated IV Insertion Date 07/15/25 IV Insertion Time 11:13 Catheter Gauge 18 IV Site Assessment WNL IV Care and WNL Maintenance PA: Cardiovascular Assessment Start: 07/15/25 10:52 Freq: Status: Active Protocol: Document 07/15/25 11:19 ANT (Rec: 07/15/25 11:21 ANT [id number]) Cardiovascular Assessment Cardiovascular Dyspnea Symptoms Skin Description Normal Color Jugular Vein None Distention PA: Respiratory Assessment Start: 07/15/25 10:52 Freq: Status: Active Protocol: Document 07/15/25 11:19 ANT (Rec: 07/15/25 11:21 ANT [id number]) Respiratory Assessment Symptoms Cough,Shortness of Breath at Rest,Shortness of Breath With Exertion,Wheezing Effort Labored Pattern Irregular Chest Expansion Symmetrical Throughout Phase Inspiratory & Expiratory Lung Sounds Wheezes Cough Description Productive Cough Frequency Intermittent Cough Reflex Present Last Vital Signs Temperature 98.2 F 07/15/25 10:57 Pulse Rate 90 07/15/25 13:42 Respiratory Rate 24 H 07/15/25 13:42 Pulse Oximetry 94 07/15/25 13:48 Blood Pressure 130/55 L 07/15/25 13:42 Blood Pressure Mean 75 07/15/25 13:42 Blood Pressure Position Sitting 07/15/25 10:57 Oxygen Delivery Nasal Cannula 07/15/25 13:48 Oxygen Flow Rate 3 07/15/25 13:48 Last Result - Abnormals Only WBC 14.4 K/mm3 (4.5-10.0) H 07/15/25 11:10 RBC 4.14 M/mm3 (4.2-5.4) L 07/15/25 11:10 Immature Gran % (Auto) 0.6 % (0-0.5) H 07/15/25 11:10 Neut % (Auto) 80.2 % (45.5-73.1) H 07/15/25 11:10 Lymph % (Auto) 8.8 % (18.3-44.2) L 07/15/25 11:10 [place] % (Auto) 9.3 % (2.6-8.5) H 07/15/25 11:10 [place] # (Auto) 1.3 K/mm3 (0.1-0.6) H 07/15/25 11:10 Abs Immat Gran (auto) 0.08 K/mm3 (0.00-0.031) H 07/15/25 11:10 Absolute Neuts (auto) 11.5 K/mm3 (1.3-6.7) H 07/15/25 11:10 PT 15.9 Seconds (11.1-14.7) H 07/15/25 11:10 Sodium 130 mmol/L (137-145) L 07/15/25 11:10 Carbon Dioxide 20 mmol/L (22-30) L 07/15/25 11:10 BUN 22 mg/dL (7-17) H D 07/15/25 11:10 Creatinine 1.12 mg/dL (0.7-1.0) H 07/15/25 11:10 Estimated GFR 46 (59-) L 07/15/25 11:10 Glucose 126 mg/dL (65-110) H 07/15/25 11:10 Troponin I 0.222 ng/mL (0.000-0.034) H* 07/15/25 11:10 Most Recent Suicide Severity Rating Suicide Severity Rating NO RISK INDICATED 07/15/25 10:52
--- NOTE | 2025-07-15 14:24 | ECG_ITS ---
Test Date: 2025-07-15 14:28:29 Measurements Intervals [place] Rate: 85 P: 61 [place]: 220 QRS: 61 QRSD: 94 T: 61 QT: 382 QTc: 457 Interpretive Statements SINUS RHYTHM WITH FIRST DEGREE AV BLOCK BORDERLINE ST ABNORMALITY- LATERAL LEADS BASELINE ARTIFACT- I, III, AVR, AVL, AVF BORDERLINE ECG Compared to ECG 07/15/2025 11:10:50 NO SIGNIFICANT CHANGE Electronically Signed On 07-15-2025 15:44:24 BUSINESS AND FINANCIAL COUNSEL by Paulie Brush D.O.
[2025-07-15 14:34] LABS: Influenza A QL RT-PCR Negative (Negative); Influenza B QL RT-PCR Negative (Negative); RSV RNA, RT-PCR Negative (Negative); SARS-CoV-2 RNA PCR Negative (Negative)
[2025-07-15 14:44] LABS: Troponin I 0.155 ng/mL (0.000-0.034)
--- NOTE | 2025-07-15 14:47 | P.HP_ITS ---
H&P: HPI History of Present Illness Date/Time: 07/15/25 14:47 Chief Complaint: Cough and shortness of breath Narrative: 81 year female past medical history of PE, hypertension, hypothyroidism, anxiety and depression presents the hospital with cough and shortness of breath. Patient states that she has been coughing up sputum for several days is thick and Gross. Patient denies fevers chills nausea or vomiting. She states that she has been using her breathing treatments at home but have not helped. Patient states that she has had pneumonia several times this year. Lab work in the ED shows leukocytosis at 14.4, INR 1.3, sodium 130, carbon dioxide 28, BUN 22, creatinine 1.12, 1st troponin 0.2-2 followed by 0.155 ED physician talked to Cardiology and does not need the patient to be started on heparin drip. EKG shows sinus rhythm with first-degree AV block ST, T wave deviation. Chest CTA shows bilateral multifocal pneumonia. Patient started on Rocephin azithromycin in the emergency room Review of Systems Review of Systems: 12 systems were reviewed and are negativ e except for as per HPI. [facility] Past Medical History Medical History (Updated 07/15/25 @ 22:24 by Saba Grace APRN) Pulmonary embolism Bladder prolapse Uterine prolapse Anxiety and depression Hypothyroidism Hyperlipidemia Essential hypertension Herniated lumbar intervertebral disc Surgical History Surgical History Hx of cholecystectomy History of ventral hernia repair History of resection of large bowel Due to diverticular bleed History of total left knee replacement Status post cataract extraction of both eyes with insertion of intraocular lens History of tonsillectomy and adenoidectomy Family History Family History Father Acute myocardial infarction Mother Cerebrovascular accident Sibling Heart disease Social History Social History Social History: She has been since 2019. She was for 63 years prior to her 's . She was a homemaker and raised 2 daughters. Code status: Full code Surrogate decision maker: Both daughters Smoking status: Never smoker Second hand tobacco smoke exposure: No Alcohol intake: never Substance use: never Substance use type: does not use Lack of Transportation: No Lack of Food: Never True Current Housing: I Do Not Have Housing Concerned About Future Housing: No Difficulty Paying Gas/Electric Bills: No Difficulty Paying for Meds: No Currently Unemployed: No Education: High School Diploma/GED Difficulty w/ Childcare or Family Care: No Spiritual care concerns: No Meds Home Medications and Allergies Home Medications ?Medication ?Instructions ?Recorded ?Confirmed ?Type alprazolam 0.5 mg tablet 0.5 mg PO HS 03/02/24 History amlodipine 5 mg tablet 5 mg PO DAILY 03/02/2407/15 History aspirin 81 mg capsule 81 mg PO DAILY 03/02/2407/02 History escitalopram oxalate 5 mg tablet 5 mg PO DAILY 4 07/15/25 History indapamide 2.5 mg tablet 2.5 mg PO DAILY 03/02/24 History levothyroxine 125 mcg tablet 125 mcg PO DAILY 03/02/24 07/15/25 History losartan 100 mg tablet 100 mg PO DAILY 03/02/24 History meclizine 25 mg tablet 25 mg PO TID PRN Vertigo 08/2507/15/25 History oxybutynin chloride 10 mg 10 mg PO HS 03/02/24 5 History tablet,extended release 24 hr potassium chloride 20 mEq 20 meq PO DAILY 03/02/24 History tablet,extended release simvastatin 20 mg tablet 20 mg PO DAILY 03/02/2407/02 History gabapentin 100 mg capsule 100 mg PO Q12H 02/20/2507/02 History albuterol sulfate 90 mcg/actuation 1 inh inhalation QI D PRN shortness 02/21/25 07/15/25 Rx aerosol inhaler (Ventolin HFA) of breath or wheezing # 8.5 grams nebulizer and compressor #1 ea 02/21/25 07/15/25 Rx ipratropium 0.5 mg-albuterol 3 mg 3 ml inhalation QID PRN shortness 04/01/25 07/15/25 Rx (2.5 mg base)/3 mL nebulization of breath or wheezing #90 mL soln fluticasone fur. 100 mcg-umeclid 1 inh inhalation Q24H 07/15/25 07/15/25 History 62.5 mcg-vilant 25 mcg inhalat.powder (Trelegy Ellipta) Allergies Allergy/AdvReac Type Severity Reaction Status Date / Time levofloxacin (From Levaquin) Allergy Intermediate Rash Verified 07/15/25 15:09 Vital Signs Vital Signs - 24 hr 07/15/25 10:57 07/15/25 11:03 07/15/25 11:04 Temperature 98.2 F Pulse Rate 93 94 91 Respiratory Rate 24 H 14 26 H Blood Pressure 161/57 H 134/97 H Pulse Oximetry 93 91 91 Oxygen Delivery Oxygen Flow Rate 07/15/25 11:35 07/15/25 11:46 07/15/25 12:00 Temperature Pulse Rate 87 82 83 Respiratory Rate 22 H 27 H 29 H Blood Pressure 158/127 H Pulse Oximetry 100 100 Oxygen Delivery Oxygen Flow Rate 07/15/25 12:01 07/15/25 12:02 07/15/25 12:21 Temperature Pulse Rate 84 83 96 Respiratory Rate 30 H 25 H 19 Blood Pressure 155/62 H Pulse Oximetry 99 98 98 Oxygen Delivery Oxygen Flow Rate 07/15/25 12:23 07/15/25 12:30 07/15/25 12:31 Temperature Pulse Rate 96 91 91 Respiratory Rate 35 H 27 H 30 H Blood Pressure 155/77 H 154/52 H Pulse Oximetry 99 100 99 Oxygen Delivery Oxygen Flow Rate 07/15/25 13:01 07/15/25 13:42 07/15/25 13:48 Temperature Pulse Rate 93 90 Respiratory Rate 20 24 H Blood Pressure 137/53 L 130/55 L Pulse Oximetry 99 95 94 Oxygen Delivery Nasal Cannula Oxygen Flow Rate 3 Exam Narrative: General: well appearing, appears stated age. HEENT: normocephalic, atraumatic. Mucous membranes moist. EOMI, PERRLA, bilateral sclera anicteric, no conjunctival injection. Neck supple without JVD, lymphadenopathy, or bruit. Respiratory: Diminished bilaterally. No rales/rhonic/wheezes. Cardiovascular: Regular rate and rhythm, normal S1-S2. No murmurs, rubs, or clicks. PMI is nondisplaced, capillary refill less than 3 second. Abdomen: Soft, round, no pulsatile masses, nondistended and nontender. No rebound, no guarding. Bowel sounds present to all four quadrants. No high pitch or tinkling sounds, resonant to percussion. Extremities: No cyanosis, clubbing, or edema present. Pulses are palpable 2/2. Active ROM to all four extremities. Neuro: Alert and orientated x 4. PERRLA. Cranial nerves 2-12 intact without focal deficit. Skin: Warm, dry, and intact, without rash, erythema, or lesion. Psych: pleasant, cooperative, normal speech, normal affect, no hallucinations, no dysarthia Pre L nasal cannula Results Labs Labs: Short CBC 07/15/25 Range/Units 11:10 WBC 14.4 H (4.5-10.0) K/mm3 Hgb 12.4 (12.0-15.0) g/dL Hct 37.2 (37.0-47.0) % Plt Count 257 (150-375) k/mm3 BMP 07/15/25 11:10 Sodium 130 L Potassium 4.2 Chloride 101 Carbon Dioxide 20 L BUN 22 H D Creatinine 1.12 H Glucose 126 H Calcium 8.8 Cardiac Enzymes 07/15/25 07/15/25 Range/Units 11:10 14:14 Troponin I 0.222 H* 0.155 H* D (0.000-0.034) ng/mL Liver Function 07/15/25 Range/Units 11:10 Total Bilirubin 1.1 (0.2-1.3) mg/dL AST 23 (14-36) U/L ALT 15 (6-35) U/L Alkaline Phosphatase 89 (38-126) U/L Albumin 4.2 (3.5-5.1) g/dL Quality VTE Prophylaxis VTE prophylaxis: mechanical ordered and pharmacologic ordered Assessment and Plan Assessment and plan (1) CAP (community acquired pneumonia): Qualifiers: Laterality: left Lung location: unspecified part of lung Qualified Code(s): J18.9 - Pneumonia, unspecified organism Code(s): J18.9 - Pneumonia, unspecified organism Status: Acute Assessment and Plan: Rocephin doxy Respiratory exercises Guaifenesin DuoNeb Sputum culture pending Blood cultures pending (2) Essential hypertension: Code(s): I10 - Essential (primary) hypertension Status: Acute Assessment and Plan: Continue amlodipine (3) Hypothyroidism: Qualifiers: Hypothyroidism type: unspecified Qualified Code(s): E03.9 - Hypothyroidism, unspecified Code(s): E03.9 - Hypothyroidism, unspecified Status: Acute Assessment and Plan: Continue Synthroid (4) Hyperlipidemia: Code(s): E78.5 - Hyperlipidemia, unspecified Status: Acute Assessment and Plan: Continue home statin (5) Anxiety and depression: Code(s): F41.9 - Anxiety disorder, unspecified; F32.A - Depression, unspecified Status: Acute Assessment and Plan: Continue home Xanax Prior Studies I have reviewed the following patient records and this information was taken into consideration when formulating the assessment and plan.: previous labs, previous ER visits, previous hospitalizations and previous clinic visits Time Spent with Patient Time with patient: less than 45 minutes Hospitalist MIPS Advance Care Plan I have confirmed that the patient's Advanced Care Plan is present, code status is documented, or surrogate decision maker is listed in patient medical record.: Yes Medication Reconciliation I have utilized all available resources to obtain, update and review the patients current medications (includes all prescriptions, OTC, herbals, cannabis, and nutritional supplements).: Yes
--- NOTE | 2025-07-15 15:08 | ADMGEN ---
This patient, Annie Davidson, was admitted to IMU Room 211-01. Patient/family oriented to hospital policies and general routines including ID bracelet, bed and alarms, visiting hours, pain management, procedures, bathroom and other care routines, personal items, smoking policy, room service/diet, and visiting hours. Information on how to activate the Rapid Response Team has been discussed. Patient/Family are encouraged to report perceived risks to care and to ask questions if they do not understand what they are told or what they should do.
--- NOTE | 2025-07-15 15:10 | ED.SOB ---
HPI - SOB/Dyspnea General Chief Complaint: Shortness of Breath/Dyspnea Stated Complaint: SHORTNESS OF BREATH, HX PNEUMONIA Time Seen by Provider: 07/15/25 11:05 History of Present Illness HPI Narrative: Patient presents with shortness of breath, started last night, she has no chest pain, started having the symptoms since last night, she was admitted and diagnosed with pneumonia about 4 months ago and that feels similar. Also prior history of PE. Related Data Home Medications ?Medication ?Instructions ?Recorded ?Confirmed ?Last Taken ?Type alprazolam 0.5 mg tablet 0.5 mg PO HS 03/02/24 03/27/25 02/18/25 History amlodipine 5 mg tablet 5 mg PO DAILY 03/02/24 03/27/25 02/19/25 History aspirin 81 mg capsule 81 mg PO DAILY 03/02/24 03/27/25 02/19/25 History escitalopram oxalate 5 mg tablet 5 mg PO DAILY 03/02/24 03/27/25 02/19/25 History indapamide 2.5 mg tablet 2.5 mg PO DAILY 03/02/24 03/27/25 02/19/25 History levothyroxine 125 mcg tablet 125 mcg PO DAILY 03/02/24 03/27/25 02/19/25 History losartan 100 mg tablet 100 mg PO DAILY 03/02/24 03/27/25 02/19/25 History meclizine 25 mg tablet 25 mg PO TID PRN Vertigo 03/02/24 03/27/25 Unknown History oxybutynin chloride 10 mg 10 mg PO HS 03/02/24 03/27/25 02/18/25 History tablet,extended release 24 hr potassium chloride 20 mEq 20 meq PO DAILY 03/02/24 03/27/25 02/19/25 History tablet,extended release simvastatin 20 mg tablet 20 mg PO DAILY 03/02/24 03/27/25 02/18/25 History gabapentin 100 mg capsule 100 mg PO Q8H 02/20/25 03/27/25 02/19/25 08:00 History 100 mg Allergies Allergy/AdvReac Type Severity Reaction Status Date / Time levofloxacin (From Levaquin) Allergy Intermediate Rash Verified 07/15/25 15:09 Review of Systems Review of Systems: All systems reviewed & are unremarkable except as noted in HPI and below PMFSH Past Medical History Medical History Pulmonary embolism Bladder prolapse Uterine prolapse Anxiety and depression Hypothyroidism Hyperlipidemia Essential hypertension Herniated lumbar intervertebral disc Surgical History Surgical History Hx of cholecystectomy History of ventral hernia repair History of resection of large bowel Due to diverticular bleed History of total left knee replacement Status post cataract extraction of both eyes with insertion of intraocular lens History of tonsillectomy and adenoidectomy Family History Family History Father Acute myocardial infarction Mother Cerebrovascular accident Sibling Heart disease Social History Social History Social History: She has been since 2019. She was for 63 years prior to her 's . She was a homemaker and raised 2 daughters. Code status: Full code Surrogate decision maker: Both daughters Smoking status: Never smoker Second hand tobacco smoke exposure: No Alcohol intake: never Substance use: never Substance use type: does not use Lack of Transportation: No Lack of Food: Never True Current Housing: I Do Not Have Housing Concerned About Future Housing: No Difficulty Paying Gas/Electric Bills: No Difficulty Paying for Meds: No Currently Unemployed: No Education: High School Diploma/GED Difficulty w/ Childcare or Family Care: No Spiritual care concerns: No Exam Narrative: EXAMINATION OF ORGAN SYSTEMS/BODY AREAS: Constitutional: Vital signs per nursing GENERAL: Appear short of breath HEAD: Normal with no signs of head trauma. EYES: EOMI, conjunctiva normal ENT: Hearing grossly intact LUNGS: Dyspneic, extensive wheezing bilaterally HEART: Regular rate and rhythm, normal regular bilateral DP and radial pulses ABD: Soft, nontender to palpation EXT: Normal range of motion SKIN: No rashes or lesions. NEURO: Alert. No gross focal sensory or strength deficits. PSYCH: Normal affect Course Vital Signs Vital signs: Vital Signs Temperature 98.2 F 07/15/25 10:57 Pulse Rate 93 07/15/25 10:57 Respiratory Rate 24 H 07/15/25 10:57 Blood Pressure 161/57 H 07/15/25 10:57 Pulse Oximetry 93 07/15/25 10:57 Temperature 98.2 F 07/15/25 10:57 Pulse Rate 90 07/15/25 13:42 Respiratory Rate 24 H 07/15/25 13:42 Blood Pressure 130/55 L 07/15/25 13:42 Pulse Oximetry 94 07/15/25 13:48 Oxygen Delivery Nasal Cannula 07/15/25 13:48 Oxygen Flow Rate 3 07/15/25 13:48 MDM MDM Narrative Medical decision making narrative: 89-year-old female with acute dyspnea and wheezing. Patient is low on oxygen here with extensive wheezing, no neurologic deficits. Nebulizer treatments are started and steroids given orally. EKG - 12-Lead: Performed at 1110. Interpreted by me. [Sinus rhythm]. Rate 86. [Normal] axis. MS-interval [normal]. QRS duration [normal]. QTc [normal]. [No ST segment elevation or depression]. [T-wave normal]. Quite a bit of artifact. Impression: No EKG evidence of acute ischemia or dysrhythmia. Labs returned with troponin 0.222, in patient still not having any chest pain, discussed with personal trainer, does not recommend anticoagulation at this time, will repeat troponins, repeat is improved. EKG - 12-Lead: Performed at 1428. Interpreted by me. [Sinus rhythm]. Rate 85. [Normal] axis. MS-interval 220. QRS duration [normal]. QTc [normal]. Some potential slight ST depression in lead II and V5-6. [T-wave normal]. CT PE obtained showing bilateral pneumonia. Discussed with patient and family, will admit her at this time, this is with hospitalist for admission Differential Diagnosis Differential Diagnosis: Acute bronchitis, pneumonia, PE, ACS Lab Data 07/15/25 11:10 07/15/25 11:10 Labs: Lab Results 07/15/25 Range/Units 11:10 WBC 14.4 H (4.5-10.0) K/mm3 RBC 4.14 L (4.2-5.4) M/mm3 Hgb 12.4 (12.0-15.0) g/dL Hct 37.2 (37.0-47.0) % MCV 89.9 (80-100) fl MCH 30.0 (26-34) pg MCHC 33.3 (32-36) g/dl RDW 12.5 (11.5-14.5) % Plt Count 257 (150-375) k/mm3 MPV 10.1 (7.4-10.4) fl Immature Gran % (Auto) 0.6 H (0-0.5) % Neut % (Auto) 80.2 H (45.5-73.1) % Lymph % (Auto) 8.8 L (18.3-44.2) % [place] % (Auto) 9.3 H (2.6-8.5) % Eos % (Auto) 0.8 (0-4.4) % Baso % (Auto) 0.3 (0.2-1.2) % Lymph # (Auto) 1.26 (0.9-3.2) K/mm3 [place] # (Auto) 1.3 H (0.1-0.6) K/mm3 Eos # (Auto) 0.1 (0-0.3) K/mm3 Baso # (Auto) 0.0 (0.0-0.1) K/mm3 Abs Immat Gran (auto) 0.08 H (0.00-0.031) K/mm3 Absolute Neuts (auto) 11.5 H (1.3-6.7) K/mm3 Absolute Nucleated RBC 0.000 (0.0-0.012) K/mm3 Nucleated RBC % 0.0 (0.0-0.2) % PT 15.9 H (11.1-14.7) Seconds INR 1.3 APTT 35.9 (22.3-36.8) Seconds Sodium 130 L (137-145) mmol/L Potassium 4.2 (3.4-5.0) mmol/L Chloride 101 (98-107) mmol/L Carbon Dioxide 20 L (22-30) mmol/L Anion Gap 9 (4-12) mmol/L BUN 22 H D (7-17) mg/dL Creatinine 1.12 H (0.7-1.0) mg/dL Estim Creat Clear Calc Not Reportable Estimated GFR 46 L (59 - ) Glucose 126 H (65-110) mg/dL Lactic Acid 1.4 (0.7-2.0) mmol/L Calcium 8.8 (8.4-10.2) mg/dL Total Bilirubin 1.1 (0.2-1.3) mg/dL AST 23 (14-36) U/L ALT 15 (6-35) U/L Alkaline Phosphatase 89 (38-126) U/L Troponin I 0.222 H* (0.000-0.034) ng/mL Total Protein 7.8 (6.3-8.2) g/dL Albumin 4.2 (3.5-5.1) g/dL Imaging Data Radiologist's impression: ITS Impressions Chest CTA 07/15/25 12:24 IMPRESSION: 1. No PE identified given motion artifact. 2. Bilateral multifocal pneumonia. Critical Care Time Critical Care Time Critical Care Time: Yes Indication: acute hypoxic resp failure Initial evaluation, discuss w/ involved parties, attempting to gather old records: 10 minutes Documenting medical record: 5 minutes Review of results (EKG's, labs, imaging): 5 minutes Serial repeat bedside evaluation: 10 minutes Discussing case with multiple memebers of the care team and consultants: 5 minutes Total Critical Care Time: 35 Discharge Plan Discharge Clinical Impression: Acute bronchitis due to infection, Elevated troponin, Acute hypoxemic respiratory failure Patient Disposition: Still a Patient Condition: Serious
[2025-07-15 18:43] LABS: Troponin I 0.111 ng/mL (0.000-0.034)
[2025-07-15] MEDS: ALPRAZolam (*CRX) 0.5 MG TABLET PO (20:34)
[2025-07-15] MEDS: oxyBUTYnin CHLORIDE XL 5 MG TAB.ER.24 10 MG PO (20:34)
[2025-07-15] MEDS: GABAPENTIN 100 MG CAPSULE PO (20:34)
[2025-07-16] VITALS (20 sets, daily range): BP systolic 109–154; BP diastolic 49–79; PULSE 66–92; RESP 20–36; TEMP 36.4–36.9; O2SAT 92–99
[2025-07-16] MEDS: IPRATROPIUM 0.5 MG/ALBUTEROL SULFATE 2.5 MG (BASE) AMPUL.NEB 3 ML INHALATION ×4 (02:02→20:23)
[2025-07-16] MEDS: LEVOTHYROXINE SODIUM 125 MCG TABLET PO (05:41)
--- NOTE | 2025-07-16 06:48 | PCRCNOTE ---
Daily Trelegy not administered at 2145 07/15 due to it being a daily mdi. Med will be started at 0800 07/16.
[2025-07-16] MEDS: FLUTICASONE/UMECLIDIN/VILANTER 100-62.5-25 MCG ELLIPTA 1 PUFF INHALATION (07:56)
[2025-07-16] MEDS: DOXYCYCLINE HYCLATE 100 MG TABLET PO ×2 (09:09→20:45)
[2025-07-16] MEDS: guaiFENesin 12 HR 600 MG TABCR 1200 MG PO ×2 (09:09→20:46)
[2025-07-16] MEDS: GABAPENTIN 100 MG CAPSULE PO ×2 (09:09→20:45)
[2025-07-16] MEDS: ESCITALOPRAM OXALATE 5 MG TABLET PO (09:10)
[2025-07-16] MEDS: INDAPAMIDE 2.5 MG TABLET PO (09:11)
[2025-07-16] MEDS: ASPIRIN 81 MG ENTERIC TABLET PO (09:11)
[2025-07-16] MEDS: SIMVASTATIN 20 MG TABLET PO (09:11)
[2025-07-16] MEDS: LOSARTAN POTASSIUM 100 MG TABLET PO (09:11)
[2025-07-16] MEDS: cefTRIAXone 1 GM in SODIUM CHLORIDE 0.9% IV 50 ML 100 ML IVPB (12:38)
--- NOTE | 2025-07-16 13:49 | PM.CNCAR ---
Assessment and Plan Assessment and plan (1) Elevated troponin: Code(s): R79.89 - Other specified abnormal findings of blood chemistry Status: Acute (2) Hyperlipidemia: Code(s): E78.5 - Hyperlipidemia, unspecified Status: Acute Plan 81-year-old woman with history of pulmonary embolism, hypertension, and hypothyroidism presents with shortness of breath associated with cough Troponin elevation -clinically not consistent acute plaque rupture -no further inpatient cardiac workup warranted Frequent atrial ectopy -likely secondary to pulmonary condition Atherosclerosis of aorta -continue aspirin 81 mg p.o. daily and simvastatin 20 mg every evening Please call Cardiology with additional questions. History of Present Illness History of Present Illness Consult date/time: 07/16/25 13:49 Requesting physician: Saba Grace APRN Consult reason: Other Reason [place] [facility] [place] [facility] Narrative: 81-year-old woman with history of pulmonary embolism, hypertension, and hypothyroidism presents with shortness of breath associated with cough. Her cough started few days ago associated with shortness of breath. She has productive yellow sputum. She denies any orthopnea or consistent lower extremity swelling. She denies any palpitations, syncopal events, and chest pain. She is mostly homebound and is not very physically active. At baseline she does develop shortness of breath when ambulating to her mailbox. This appears to be her baseline functional status. Review of Systems Cardiovascular: Cardiovascular: Reports as per HPI Respiratory: Respiratory: Reports as per HPI [facility] Past Medical History Medical History (Updated 07/15/25 @ 22:24 by Saba Grace APRN) Pulmonary embolism Bladder prolapse Uterine prolapse Anxiety and depression Hypothyroidism Hyperlipidemia Essential hypertension Herniated lumbar intervertebral disc Surgical History Surgical History Hx of cholecystectomy History of ventral hernia repair History of resection of large bowel Due to diverticular bleed History of total left knee replacement Status post cataract extraction of both eyes with insertion of intraocular lens History of tonsillectomy and adenoidectomy Family History Family History Father Acute myocardial infarction Mother Cerebrovascular accident Sibling Heart disease Social History Social History Social History: She has been since 2019. She was for 63 years prior to her 's . She was a homemaker and raised 2 daughters. Code status: Full code Surrogate decision maker: Both daughters Smoking status: Never smoker Second hand tobacco smoke exposure: No Alcohol intake: never Substance use: never Substance use type: does not use Lack of Transportation: No Lack of Food: Never True Current Housing: I Do Not Have Housing Concerned About Future Housing: No Difficulty Paying Gas/Electric Bills: No Difficulty Paying for Meds: No Currently Unemployed: No Education: High School Diploma/GED Difficulty w/ Childcare or Family Care: No Spiritual care concerns: No Meds Home Medications and Allergies Home Medications ?Medication ?Instructions ?Recorded ?Confirmed ?Type alprazolam 0.5 mg tablet 0.5 mg PO HS 03/02/24 07/15/25 History amlodipine 5 mg tablet 5 mg PO DAILY 03/02/24 07/15/25 History aspirin 81 mg capsule 81 mg PO DAILY 03/02/24 07/15/25 History escitalopram oxalate 5 mg tablet 5 mg PO DAILY 03/02/24 07/15/25 History indapamide 2.5 mg tablet 2.5 mg PO DAILY 03/02/24 07/15/25 History levothyroxine 125 mcg tablet 125 mcg PO DAILY 03/02/24 07/15/25 History losartan 100 mg tablet 100 mg PO DAILY 03/02/24 07/15/25 History meclizine 25 mg tablet 25 mg PO TID PRN Vertigo 03/02/24 07/15/25 History oxybutynin chloride 10 mg 10 mg PO HS 03/02/24 07/15/25 History tablet,extended release 24 hr potassium chloride 20 mEq 20 meq PO DAILY 03/02/24 07/15/25 History tablet,extended release simvastatin 20 mg tablet 20 mg PO DAILY 03/02/24 07/15/25 History gabapentin 100 mg capsule 100 mg PO Q12H 02/20/25 07/15/25 History albuterol sulfate 90 mcg/actuation 1 inh inhalation QID PRN shortness 02/21/25 07/15/25 Rx aerosol inhaler (Ventolin HFA) of breath or wheezing #8.5 grams nebulizer and compressor #1 ea 02/21/25 07/15/25 Rx ipratropium 0.5 mg-albuterol 3 mg 3 ml inhalation QID PRN shortness 04/01/25 07/15/25 Rx (2.5 mg base)/3 mL nebulization of breath or wheezing #90 mL soln fluticasone fur. 100 mcg-umeclid 1 inh inhalation Q24H 07/15/25 07/15/25 History 62.5 mcg-vilant 25 mcg inhalat.powder (Trelegy Ellipta) Allergies Allergy/AdvReac Type Severity Reaction Status Date / Time levofloxacin (From [facility]) Allergy Intermediate Rash Verified 07/15/25 15:09 Vital Signs Vital Signs - 24 hr 07/15/25 15:41 07/15/25 15:58 07/15/25 16:00 Temperature 37.2 C Pulse Rate 91 84 Respiratory Rate 36 H Blood Pressure 104/52 L Pulse Oximetry 94 96 Oxygen Delivery Nasal Cannula Oxygen Flow Rate 3 07/15/25 18:00 07/15/25 20:00 07/15/25 20:00 Temperature 37.4 C Pulse Rate 74 74 Respiratory Rate 34 H Blood Pressure 133/47 L Pulse Oximetry 97 96 Oxygen Delivery Nasal Cannula Oxygen Flow Rate 3 07/15/25 20:00 07/15/25 21:53 07/15/25 23:49 Temperature 36.4 C Pulse Rate 74 71 70 Respiratory Rate 36 H Blood Pressure 122/63 Pulse Oximetry 97 Oxygen Delivery Oxygen Flow Rate 07/15/25 23:57 07/16/25 00:00 07/16/25 02:00 Temperature Pulse Rate 70 76 Respiratory Rate Blood Pressure Pulse Oximetry 96 Oxygen Delivery Nasal Cannula Oxygen Flow Rate 3 07/16/25 02:02 07/16/25 02:02 07/16/25 02:10 Temperature Pulse Rate 69 69 72 Respiratory Rate 20 20 Blood Pressure Pulse Oximetry 96 Oxygen Delivery Nasal Cannula Oxygen Flow Rate 3 07/16/25 04:00 07/16/25 04:00 07/16/25 04:00 Temperature 36.6 C Pulse Rate 77 74 Respiratory Rate 36 H Blood Pressure 119/57 L Pulse Oximetry 99 98 Oxygen Delivery Nasal Cannula Oxygen Flow Rate 3 07/16/25 06:00 07/16/25 07:52 07/16/25 07:55 Temperature Pulse Rate 66 74 74 Respiratory Rate 20 20 Blood Pressure Pulse Oximetry 92 Oxygen Delivery Nasal Cannula Oxygen Flow Rate 3 07/16/25 08:00 07/16/25 08:00 07/16/25 08:00 Temperature 36.5 C Pulse Rate 84 73 Respiratory Rate 26 H Blood Pressure 109/79 Pulse Oximetry 93 96 Oxygen Delivery Nasal Cannula Oxygen Flow Rate 3 07/16/25 08:05 07/16/25 09:18 07/16/25 10:00 Temperature Pulse Rate 73 78 Respiratory Rate 20 Blood Pressure 144/51 H Pulse Oximetry Oxygen Delivery Oxygen Flow Rate 07/16/25 12:00 07/16/25 12:00 07/16/25 12:00 Temperature 36.6 C Pulse Rate 80 76 Respiratory Rate 22 H Blood Pressure 142/51 H Pulse Oximetry 96 97 Oxygen Delivery Nasal Cannula Oxygen Flow Rate 2 Exam Const: Other: Ill appearing HENMT: Mouth: Yes moist mucous membranes Eyes: EOM: EOMs intact bilaterally Neck: Neck: no JVD Resp: Auscultation: rales Other: Tachypneic. Cardio: Rate: regular rate Rhythm: regular rhythm Other: Frequent atrial ectopy GI: GI Palp: Yes Soft to palpation Extrem: General: no pedal edema Results Labs and Meds 07/15/25 11:10 07/15/25 11:10 Lab results: Cardiac Enzymes 07/15/25 07/15/25 Range/Units 14:14 18:06 Troponin I 0.155 H* D 0.111 H* D (0.000-0.034) ng/mL Intake and Output 07/15/25 07/16/25 07/16/25 23:59 07:59 15:59 Intake Total 670 170 Output Total 50 300 Balance 620 -300 170 Intake: IV 50 cefTRIAXone 1 gm In Sodium 50 Chloride 0.9% IV 50 ml @ 100 mls/hr IVPB Q24H [facility] Rx#: [id number] Oral 670 120 Output: Catheter Urine 50 300 External/Condom 50 300 Patient Weight 07/16/25 23:59 Weight 123.3 kg
--- NOTE | 2025-07-16 14:28 | P.PNIM_ITS ---
Assessment and Plan Assessment and Plan (1) CAP (community acquired pneumonia): Qualifiers: Laterality: left Lung location: unspecified part of lung Qualified Code(s): J18.9 - Pneumonia, unspecified organism Code(s): J18.9 - Pneumonia, unspecified organism Status: Acute (2) Essential hypertension: Code(s): I10 - Essential (primary) hypertension Status: Acute (3) Hypothyroidism: Qualifiers: Hypothyroidism type: unspecified Qualified Code(s): E03.9 - Hypothyroidism, unspecified Code(s): E03.9 - Hypothyroidism, unspecified Status: Acute (4) Hyperlipidemia: Code(s): E78.5 - Hyperlipidemia, unspecified Status: Acute (5) Anxiety and depression: Code(s): F41.9 - Anxiety disorder, unspecified; F32.A - Depression, unspecified Status: Acute Plan This is an 81-year-old female who presents to the hospital with cough and shortness of breath for the past several days. Sputum is thick and gross. She denies any fever chills nausea vomiting. She has been using her breathing treatment at home but have not helped. She has had pneumonia several times this year. Last admission was in March of 2025. Laboratory workup in the ED showed leukocytosis at 14.4 INR 1.3 sodium 130 carbon dioxide 28 BUN 22 creatinine 1.12 1st troponin 0.222 followed by 0.155. Patient has been started on heparin drip. EKG showed sinus rhythm with first- degree AV block with nonspecific ST-T changes. Chest CTA showed bilateral multifocal pneumonia. Patient has been started on Rocephin doxycycline. Continue DuoNeb treatment gallstone is seen follow blood cultures and sputum culture will get respiratory pathogen panel Acute hypoxic respiratory failure needing oxygenation via nasal cannula Multifocal pneumonia Elevated troponin with flat trend. Patient was started on heparin drip on admission. Echo 03/26: Normal EF 60-65% with no significant valvular abnormalities. Urology consulted Mild hyponatremia Hypertension Hypothyroidism Hyperlipidemia on statin Anxiety depression on Xanax at home History of pulmonary embolism 09/2024 used to be on anticoagulation which has been now discontinued Lumbar herniated disc DVT prophylaxis heparin subQ Code status full code Subjective Date/time seen: 07/16/25 14:28 Interval history: Feels a little better. 2 L oxygen. She does not wear oxygen at home. Has not ambulated yet. Family at bedside. Denies any chest pain. Review of Systems Review of Systems: All systems reviewed & are unremarkable except as noted in HPI and below Exam Narrative: General: well appearing, appears stated age. Not in acute distress HEENT: normocephalic, atraumatic. Mucous membranes moist. Neck supple without JVD, lymphadenopathy, or bruit. Respiratory: Diminished bilaterally. Mild end expiratory wheezes noted Cardiovascular: Regular rate and rhythm, normal S1-S2. Abdomen: Soft, round, no pulsatile masses, nondistended and nontender. Extremities: No cyanosis, clubbing, or edema present. Pulses are palpable 2/2. Active ROM to all four extremities. Neuro: Alert and orientated x 4. PERRLA. Cranial nerves 2-12 intact without focal deficit. Skin: Warm, dry, and intact, without rash, erythema, or lesion. Psych: Normal mood Objective Data Vital Signs Vital Signs: Vital Signs - 24 hr 07/15/25 15:41 07/15/25 15:58 07/15/25 16:00 Temperature 99.0 F Pulse Rate 91 84 Respiratory Rate 36 H Blood Pressure 104/52 L Pulse Oximetry 94 96 Oxygen Delivery Nasal Cannula Oxygen Flow Rate 3 07/15/25 18:00 07/15/25 20:00 07/15/25 20:00 Temperature 99.4 F Pulse Rate 74 74 Respiratory Rate 34 H Blood Pressure 133/47 L Pulse Oximetry 97 96 Oxygen Delivery Nasal Cannula Oxygen Flow Rate 3 07/15/25 20:00 07/15/25 21:53 07/15/25 23:49 Temperature 97.6 F Pulse Rate 74 71 70 Respiratory Rate 36 H Blood Pressure 122/63 Pulse Oximetry 97 Oxygen Delivery Oxygen Flow Rate 07/15/25 23:57 07/16/25 00:00 07/16/25 02:00 Temperature Pulse Rate 70 76 Respiratory Rate Blood Pressure Pulse Oximetry 96 Oxygen Delivery Nasal Cannula Oxygen Flow Rate 3 07/16/25 02:02 07/16/25 02:02 07/16/25 02:10 Temperature Pulse Rate 69 69 72 Respiratory Rate 20 20 Blood Pressure Pulse Oximetry 96 Oxygen Delivery Nasal Cannula Oxygen Flow Rate 3 07/16/25 04:00 07/16/25 04:00 07/16/25 04:00 Temperature 97.9 F Pulse Rate 77 74 Respiratory Rate 36 H Blood Pressure 119/57 L Pulse Oximetry 99 98 Oxygen Delivery Nasal Cannula Oxygen Flow Rate 3 07/16/25 06:00 07/16/25 07:52 07/16/25 07:55 Temperature Pulse Rate 66 74 74 Respiratory Rate 20 20 Blood Pressure Pulse Oximetry 92 Oxygen Delivery Nasal Cannula Oxygen Flow Rate 3 07/16/25 08:00 07/16/25 08:00 07/16/25 08:00 Temperature 97.7 F Pulse Rate 84 73 Respiratory Rate 26 H Blood Pressure 109/79 Pulse Oximetry 93 96 Oxygen Delivery Nasal Cannula Oxygen Flow Rate 3 07/16/25 08:05 07/16/25 09:18 07/16/25 10:00 Temperature Pulse Rate 73 78 Respiratory Rate 20 Blood Pressure 144/51 H Pulse Oximetry Oxygen Delivery Oxygen Flow Rate 07/16/25 12:00 07/16/25 12:00 07/16/25 12:00 Temperature 97.8 F Pulse Rate 80 76 Respiratory Rate 22 H Blood Pressure 142/51 H Pulse Oximetry 96 97 Oxygen Delivery Nasal Cannula Oxygen Flow Rate 2 07/16/25 13:23 07/16/25 13:30 Temperature Pulse Rate 72 75 Respiratory Rate 20 20 Blood Pressure Pulse Oximetry Oxygen Delivery Oxygen Flow Rate Intake/Output Intake/Output: Intake & Output 07/13/25 07/14/25 07/15/25 07/16/25 23:59 23:59 23:59 23:59 Intake Total 720 170 Output Total 50 300 Balance 670 -130 Meds/Results Medications: Active Medications Generic Name Dose Route Start Last Admin Trade Name Freq PRN Reason Stop Dose Admin Albuterol 1 puff 07/15/25 22:20 Albuterol Sulfate (*Sp) Aerosol 1 Puff INHALATION QIDRT PRN Shortness Of Breath Or Wheezing Albuterol/Ipratropium 3 ml 07/16/25 02:00 07/16/25 13:23 Ipratropium 0.5 Mg/Albuterol Sulfate 2.5 Mg (Base) Ampul.Neb 3 Ml INHALATION 3 ml Q6HRT GAUTAM Administration Alprazolam 0.5 mg 07/15/25 21:00 07/15/25 20:34 Alprazolam (*Crx) 0.5 Mg Tablet PO 0.5 mg HS GAUTAM Administration Amlodipine Besylate 5 mg 07/16/25 09:00 07/16/25 09:18 Amlodipine Besylate 5 Mg Tablet PO 5 mg DAILY GAUTAM Administration Aspirin 81 mg 07/16/25 09:00 07/16/25 09:11 Aspirin 81 Mg Enteric Tablet PO 81 mg QAM GAUTAM Administration Doxycycline Hyclate 100 mg 07/16/25 09:00 07/16/25 09:09 Doxycycline Hyclate 100 Mg Tablet PO 100 mg Q12HR GAUTAM Administration Escitalopram Oxalate 5 mg 07/16/25 09:00 07/16/25 09:10 Escitalopram Oxalate 5 Mg Tablet PO 5 mg DAILY GAUTAM Administration Fluticasone/Umeclidinium/Vilanterol 1 puff 07/15/25 19:40 07/16/25 07:56 Fluticasone/Umeclidin/Vilanter 100-62.5-25 Mcg Ellipta INHALATION 1 puff DAILYRT GAUTAM Administration Gabapentin 100 mg 07/15/25 19:30 07/16/25 09:09 Gabapentin 100 Mg Capsule PO 100 mg Q12HR GAUTAM Administration Guaifenesin 1,200 mg 07/16/25 09:00 07/16/25 09:09 Guaifenesin 12 Hr 600 Mg Tabcr PO 1,200 mg Q12HR GAUTAM Administration Heparin Sodium (Porcine) 5,000 units 07/16/25 09:00 07/16/25 09:12 Heparin Sodium 5,000 Units/Ml Vial SUB-Q 5,000 units Q12HR GAUTAM Administration Ceftriaxone Sodium 1 gm/ 50 mls @ 100 mls/hr 07/16/25 12:00 07/16/25 13:08 Sodium Chloride IVPB Infused Q24H GAUTAM Infusion Indapamide 2.5 mg 07/16/25 09:00 07/16/25 09:11 Indapamide 2.5 Mg Tablet PO 2.5 mg DAILY GAUTAM Administration Levothyroxine Sodium 125 mcg 07/16/25 06:30 07/16/25 05:41 Levothyroxine Sodium 125 Mcg Tablet PO 125 mcg DAILY@0630 GAUTAM Administration Losartan Potassium 100 mg 07/16/25 09:00 07/16/25 09:11 Losartan Potassium 100 Mg Tablet PO 100 mg DAILY GAUTAM Administration Meclizine HCl 25 mg 07/15/25 19:26 Meclizine Hcl 25 Mg Tablet PO TID PRN Vertigo Oxybutynin Chloride 10 mg 07/15/25 21:00 07/15/25 20:34 Oxybutynin Chloride Xl 5 Mg Tab.Er.24 PO 10 mg HS GAUTAM Administration Simvastatin 20 mg 07/16/25 09:00 07/16/25 09:11 Simvastatin 20 Mg Tablet PO 20 mg DAILY GAUTAM Administration Radiology Results: ITS Impressions Chest CTA 07/15/25 12:24 IMPRESSION: 1. No PE identified given motion artifact. 2. Bilateral multifocal pneumonia. Labs Labs: Laboratory Results - last 24 hr 07/15/25 07/15/25 07/15/25 13:53 14:14 18:06 Troponin I 0.155 H* D 0.111 H* D Influenza A (RT-PCR) Negative Influenza B (RT-PCR) Negative RSV (RT-PCR) Negative SARS-CoV-2 RNA (RT-PCR) Negative
[2025-07-16 15:25] LABS: Hematocrit 34.0 % (37.0-47.0); Hemoglobin 11.2 g/dL (12.0-15.0); Immature Granulocyte Percent A 0.8 % (0-0.5); Lymphocytes Absolute Auto 0.74 K/mm3 (0.9-3.2); Mean Corpuscular HGB Conc 32.9 g/dl (32-36); Mean Corpuscular Hemoglobin 29.2 pg (26-34); Mean Corpuscular Volume 88.8 fl (80-100); Nucleated Red Blood Cells Absolute Auto 0.000 K/mm3 (0.0-0.012); Nucleated Red Blood Cells Perc 0.0 % (0.0-0.2); Platelet Count Result 246 k/mm3 (150-375); Red Blood Count 3.83 M/mm3 (4.2-5.4); White Blood Count 15.8 K/mm3 (4.5-10.0)
[2025-07-16 15:39] LABS: Alanine Aminotransferase 20 U/L (6-35); Albumin Level 3.9 g/dL (3.5-5.1); Alkaline Phosphatase 83 U/L (38-126); Anion Gap 10 mmol/L (4-12); Aspartate Amino Transferase 23 U/L (14-36); Bilirubin,Total 0.4 mg/dL (0.2-1.3); Blood Urea Nitrogen 43 mg/dL (7-17); Calcium 8.9 mg/dL (8.4-10.2); Carbon Dioxide 20 mmol/L (22-30); Chloride 98 mmol/L (98-107); Estimated CRCL calculation 30 ml/min; Estimated Glomerular Filt Rate 30; Glucose 128 mg/dL (65-110); Magnesium 2.1 mg/dL (1.6-2.3); Potassium 4.6 mmol/L (3.4-5.0); Sodium 128 mmol/L (137-145); Total Protein 7.2 g/dL (6.3-8.2)
--- NOTE | 2025-07-16 18:06 | PC.NURSE ---
This patient, Annie Davidson, was received from [[facility] ] on 07/16/25 at 1806. Patient/family oriented to unit policies and routines
[2025-07-16] MEDS: ALPRAZolam (*CRX) 0.5 MG TABLET PO (20:45)
[2025-07-16] MEDS: oxyBUTYnin CHLORIDE XL 5 MG TAB.ER.24 10 MG PO (20:46)
[2025-07-17] VITALS (9 sets, daily range): BP systolic 136; BP diastolic 41; PULSE 70–110; RESP 20–22; TEMP 36.3; O2SAT 92–96
[2025-07-17] MEDS: IPRATROPIUM 0.5 MG/ALBUTEROL SULFATE 2.5 MG (BASE) AMPUL.NEB 3 ML INHALATION ×3 (02:29→14:15)
[2025-07-17] MEDS: LEVOTHYROXINE SODIUM 125 MCG TABLET PO (05:47)
[2025-07-17 06:17] LABS: Hematocrit 33.4 % (37.0-47.0); Hemoglobin 11.1 g/dL (12.0-15.0); Immature Granulocyte Percent A 0.7 % (0-0.5); Lymphocytes Absolute Auto 1.58 K/mm3 (0.9-3.2); Mean Corpuscular HGB Conc 33.2 g/dl (32-36); Mean Corpuscular Hemoglobin 29.4 pg (26-34); Mean Corpuscular Volume 88.4 fl (80-100); Nucleated Red Blood Cells Absolute Auto 0.000 K/mm3 (0.0-0.012); Nucleated Red Blood Cells Perc 0.0 % (0.0-0.2); Platelet Count Result 266 k/mm3 (150-375); Red Blood Count 3.78 M/mm3 (4.2-5.4); White Blood Count 14.9 K/mm3 (4.5-10.0)
[2025-07-17 06:44] LABS: Alanine Aminotransferase 13 U/L (6-35); Albumin Level 3.7 g/dL (3.5-5.1); Alkaline Phosphatase 91 U/L (38-126); Anion Gap 8 mmol/L (4-12); Aspartate Amino Transferase 26 U/L (14-36); Bilirubin,Total 0.3 mg/dL (0.2-1.3); Blood Urea Nitrogen 51 mg/dL (7-17); Calcium 8.7 mg/dL (8.4-10.2); Carbon Dioxide 21 mmol/L (22-30); Chloride 98 mmol/L (98-107); Estimated CRCL calculation 30 ml/min; Estimated Glomerular Filt Rate 32; Glucose 113 mg/dL (65-110); Magnesium 2.0 mg/dL (1.6-2.3); Potassium 4.5 mmol/L (3.4-5.0); Sodium 127 mmol/L (137-145); Total Protein 6.9 g/dL (6.3-8.2)
[2025-07-17] MEDS: FLUTICASONE/UMECLIDIN/VILANTER 100-62.5-25 MCG ELLIPTA 1 PUFF INHALATION (08:24)
[2025-07-17] MEDS: DOXYCYCLINE HYCLATE 100 MG TABLET PO (09:54)
[2025-07-17] MEDS: GABAPENTIN 100 MG CAPSULE PO (09:54)
[2025-07-17] MEDS: INDAPAMIDE 2.5 MG TABLET PO (09:54)
[2025-07-17] MEDS: guaiFENesin 12 HR 600 MG TABCR 1200 MG PO (09:54)
[2025-07-17] MEDS: ESCITALOPRAM OXALATE 5 MG TABLET PO (09:54)
[2025-07-17] MEDS: LOSARTAN POTASSIUM 100 MG TABLET PO (09:54)
[2025-07-17] MEDS: SIMVASTATIN 20 MG TABLET PO (09:54)
[2025-07-17] MEDS: ASPIRIN 81 MG ENTERIC TABLET PO (09:54)
--- NOTE | 2025-07-17 12:15 | P.DS_ITS ---
DS: Admitting Diagnosis Discharge Date 07/17/2025 Admitting Diagnosis Shortness of breath DS: Discharge Diagnosis Discharge Diagnosis (1) CAP (community acquired pneumonia): Qualifiers: Laterality: left Lung location: unspecified part of lung Qualified Code(s): J18.9 - Pneumonia, unspecified organism Code(s): J18.9 - Pneumonia, unspecified organism Status: Acute (2) Essential hypertension: Code(s): I10 - Essential (primary) hypertension Status: Acute (3) Hypothyroidism: Qualifiers: Hypothyroidism type: unspecified Qualified Code(s): E03.9 - Hypothyroidism, unspecified Code(s): E03.9 - Hypothyroidism, unspecified Status: Acute (4) Hyperlipidemia: Code(s): E78.5 - Hyperlipidemia, unspecified Status: Acute (5) Anxiety and depression: Code(s): F41.9 - Anxiety disorder, unspecified; F32.A - Depression, unspecified Status: Acute DS: Summary Hospital Course Hospital Course: This is an 81-year-old female who presents to the hospital with cough and shortness of breath for the past several days. Sputum is thick and gross. She denies any fever chills nausea vomiting. She has been using her breathing treatment at home but have not helped. She has had pneumonia several times this year. Last admission was in March of 2025. Laboratory workup in the ED showed leukocytosis at 14.4 INR 1.3 sodium 130 carbon dioxide 28 BUN 22 creatinine 1.12 1st troponin 0.222 followed by 0.155. Patient has been started on heparin drip. EKG showed sinus rhythm with first- degree AV block with nonspecific ST-T changes. Chest CTA showed bilateral multifocal pneumonia. Patient has been started on Rocephin doxycycline. She improved significantly with treatment instituted Continue DuoNeb treatment gallstone is seen follow blood cultures and sputum culture. Respiratory pathogen panel pending Acute hypoxic respiratory failure needing oxygenation via nasal cannula. Home O2 evaluation performed during discharge with no oxygen requirement noted Multifocal pneumonia treated with IV antibiotics. Switched to oral antibiotics at discharge Elevated troponin with flat trend. Patient was started on heparin drip on admission. Echo 03/26: Normal EF 60-65% with no significant valvular abnormalities. Cardiology consulted Mild hyponatremia Hypertension Hypothyroidism Hyperlipidemia on statin Anxiety depression on Xanax at home History of pulmonary embolism 09/2024 used to be on anticoagulation which has been now discontinued. Repeat CTA was negative for PE Lumbar herniated disc DVT prophylaxis heparin subQ Code status full code Time Spent with Patient Time attestation: Total time spent providing and/or coordinating discharge services: 35 minutes Exam Narrative: General: well appearing, appears stated age. Not in acute distress HEENT: normocephalic, atraumatic. Mucous membranes moist. Neck supple without JVD, lymphadenopathy, or bruit. Respiratory: Diminished bilaterally. No wheezes Cardiovascular: Regular rate and rhythm, normal S1-S2. Abdomen: Soft, round, no pulsatile masses, nondistended and nontender. Extremities: No cyanosis, clubbing, or edema present. Pulses are palpable 2/2. Active ROM to all four extremities. Neuro: Alert and orientated x 4. PERRLA. Cranial nerves 2-12 intact without focal deficit. Skin: Warm, dry, and intact, without rash, erythema, or lesion. Psych: Normal mood DS: Data Data Completed and Pending Labs on day of discharge: Labs from last 24 hours 07/17/25 07/16/25 06:06 15:07 WBC 14.9 H 15.8 H RBC 3.78 L 3.83 L Hgb 11.1 L 11.2 L Hct 33.4 L 34.0 L MCV 88.4 88.8 MCH 29.4 29.2 MCHC 33.2 32.9 RDW 12.3 12.2 Plt Count 266 246 MPV 10.4 10.4 Immature Gran % (Auto) 0.7 H 0.8 H Neut % (Auto) 80.6 H 86.6 H Lymph % (Auto) 10.6 L 4.7 L Mclennan % (Auto) 7.9 7.8 Eos % (Auto) 0.1 0.0 Baso % (Auto) 0.1 L 0.1 L Lymph # (Auto) 1.58 0.74 L Mclennan # (Auto) 1.2 H 1.2 H Eos # (Auto) 0.0 0.0 Baso # (Auto) 0.0 0.0 Abs Immat Gran (auto) 0.10 H 0.13 H Absolute Neuts (auto) 12.0 H 13.7 H Absolute Nucleated RBC 0.000 0.000 Nucleated RBC % 0.0 0.0 Sodium 127 L 128 L Potassium 4.5 4.6 Chloride 98 98 Carbon Dioxide 21 L 20 L Anion Gap 8 10 BUN 51 H 43 H D Creatinine 1.54 H 1.61 H Estim Creat Clear Calc 30 30 Estimated GFR 32 L 30 L Glucose 113 H 128 H Calcium 8.7 8.9 Magnesium 2.0 2.1 Total Bilirubin 0.3 0.4 AST 26 23 ALT 13 20 Alkaline Phosphatase 91 83 Total Protein 6.9 7.2 Albumin 3.7 3.9 M.pneumoniae IgM Titer Pending Imaging Radiologist's impression: ITS Impressions Chest CTA 07/15/25 12:24 IMPRESSION: 1. No PE identified given motion artifact. 2. Bilateral multifocal pneumonia. Discharge Plan Discharge Attending physician on discharge: Davide Flanagan Consulting providers: Tenisha Jurado Discharging Clinician: Davide Flanagan Anticipated Discharge Date/Time: 07/17/25 12:22 Patient Disposition: Home Activity: as tolerated Diet: heart healthy Patient Instructions: Antibiotic Form Patient Language: Australian Stand Alone Forms: General Discharge Information Follow-up/Referrals: Kalia,Chris Aguiar MD [Primary Care Provider] - 1 Week Discharge Medications: New doxycycline hyclate 100 mg Tablet 100 mg PO Q12HR Qty: 11 0RF guaifenesin [Mucus Relief ER] 600 mg Tablet Extended Release 12hr 1,200 mg PO Q12HR Qty: 30 0RF amoxicillin-pot clavulanate 875-125 mg tablet 1 tablet PO Q12H Qty: 10 0RF prednisone 20 mg tablet 40 mg PO DAILY Qty: 10 0RF Continued oxybutynin chloride 10 mg Tablet Extended Release 24hr 10 mg PO HS indapamide 2.5 mg Tablet 2.5 mg PO DAILY amlodipine 5 mg Tablet 5 mg PO DAILY alprazolam 0.5 mg Tablet 0.5 mg PO HS meclizine 25 mg Tablet 25 mg PO TID PRN (Reason: Vertigo) simvastatin 20 mg Tablet 20 mg PO DAILY levothyroxine 125 mcg Tablet 125 mcg PO DAILY losartan 100 mg Tablet 100 mg PO DAILY escitalopram oxalate 5 mg Tablet 5 mg PO DAILY potassium chloride 20 mEq Tablet Extended Release 20 meq PO DAILY aspirin 81 mg Capsule 81 mg PO DAILY gabapentin 100 mg capsule 100 mg PO Q12H albuterol sulfate [Ventolin HFA] 90 mcg/actuation HFA aerosol inhaler 1 inh inhalation QID PRN (Reason: shortness of breath or wheezing) Qty: 8.5 0RF (DME) nebulizer and compressor Device See Rx Instructions .ROUTE .MEDSUPPLY Qty: 1 0RF Rx Instructions: As directed Trelegy Ellipta 100-62.5-25 mcg blister with device 1 inh inhalation Q24H ipratropium-albuterol 0.5 mg-3 mg(2.5 mg base)/3 mL solution for nebulization 3 ml inhalation QID PRN (Reason: shortness of breath or wheezing) Qty: 90 0RF Date of admission: 07/15/25 13:31 Primary Care Provider: Kalia,Chris Aguiar Admitting Provider: Davide Flanagan Attending physician on admission: Davide Flanagan Condition: Improved
[2025-07-17] MEDS: cefTRIAXone 1 GM in SODIUM CHLORIDE 0.9% IV 50 ML 100 ML IVPB (13:04)
--- NOTE | 2025-07-17 14:59 | HOMEO2EVAL ---
Evaluation was performed at [facility] Home Oxygen Evaluation RC: Home Oxygen (O2) Evaluation Start: 07/17/25 12:15 Freq: ONCE Status: Active Protocol: RPE Activity Type Activity Date Activity User E-sign Co-sign Detail Recorded Client Recorded Date Recorded By Document 07/17/25 14:00 CHRIS [email or web address] 07/17/25 14:59 CHRIS Document 07/17/25 14:10 CHRIS [email or web address] 07/17/25 14:59 CHRIS Document 07/17/25 14:15 CHRIS [email or web address] 07/17/25 14:59 CHRIS 07/17/25 07/17/25 07/17/25 14:00 14:10 14:15 Home O2 Evaluation [Oxygen] -Test Phase Resting Exercise Resting -Oxygen Delivery Room Air Room Air Room Air [Pulse Oximetry] -Pulse Oximetry (90-100 %) 95 92 95 [Pulse Rate] -Pulse Rate (60-100 beats/min) 80 110 H 86 [Comments] -Home Oxygen Evaluation Comments No home O2 needed at this time.
== END 2025-07-17 15:40 | disposition home or self-care (01) | DRG 193 ==
LOC: ANHED 14:43 → ANHIMU 14:45 → ANH3MEDSUR 07-16 17:40
PROVIDERS: Family Medicine; Admitting Provider Internal Medicine; Emergency Provider Emergency Medicine; PCP Internal Medicine; Visit Provider Internal Medicine
DX: J18.9 Pneumonia, unspecified organism (principal); J96.01 Acute respiratory failure with hypoxia; E87.1 Hypo-osmolality and hyponatremia; I10 Essential (primary) hypertension; E03.9 Hypothyroidism, unspecified; E78.5 Hyperlipidemia, unspecified; F41.9 Anxiety disorder, unspecified; F32.A Depression, unspecified; Z20.822 Contact with and (suspected) exposure to COVID-19; Z96.652 Presence of left artificial knee joint; Z79.82 Long term (current) use of aspirin; Z86.711 Personal history of pulmonary embolism
CPT/HCPCS: 36415; 71275; 80053; 83605; 83735; 84484; 85025; 85610; 85730; 86738; 87040; 87449; 87637; 93005; 94640; 94667; 96365; 96375; 97161; 97166; 99291; A9270; J0696; J1644; J2919; Q9967